=== PATIENT | male | born 2000 | race Caucasian/White ===

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

== ENCOUNTER 2023-04-18 11:08 | Emergency (ER) | payer MEDICAID ==
[~2023-04-18] VITALS: Ht 177.8 cm; Wt 86.3 kg
[~2023-04-18 11:08] MED LIST changes: +CLON0.5T3 PO; +TRAZ-227 PO
[2023-04-18] MEDS ORDERED: LORazepam 2MG/ML-1ML VIAL ONE (11:16)
[2023-04-18] MEDS ORDERED: LORazepam 2MG/ML-1ML VIAL IV ONE (11:30)
[2023-04-18 12:07] LABS: Albumin 4.1 g/dL (3.4-5.0); Calcium 8.9 mg/dL (8.5-10.1); Potassium 4.7 mmol/L (3.5-5.1)
[2023-04-18 12:11] LABS: Bilirubin, Total 0.2 mg/dL (0.2-1.0); Total Protein 8.1 g/dL (6.4-8.2)
[2023-04-18 12:17] LABS: Basophils # (auto) 0 10 ^3/uL (0-0.2); Basophils % (auto) 0.6 % (0.0-2.0); Eosinophils # (auto) 0.1 10 ^3/uL (0-0.8); Eosinophils % (auto) 1.5 % (0.0-7.0); Hemoglobin 16.1 g/dL (13.5-17.5); Lymphocytes # (auto) 1.1 10 ^3/uL (0.4-5.4); Lymphocytes % (auto) 15.3 % (10.0-50.0); Mean Corpuscular Hgb Conc. 33.5 g/dL (32.0-36.0); Mean Corpuscular Volume 89.6 fL (80.0-100.0); Monocytes # (auto) 0.6 10 ^3/uL (0-1.3); Monocytes % (auto) 8.4 % (0.0-12.0); Neutrophils # (auto) 5.2 10 ^3/uL (1.6-8.6); Neutrophils % (auto) 74.2 % (37.0-80.0); Nucleated Red Blood Cells % 0.1 %; Red Blood Cells 5.36 10^6/uL (4.5-5.90); Red Cell Distribution Width 14.7 % (11.8-14.3)
[2023-04-18] MEDS ORDERED: LORazepam 2MG/ML-1ML VIAL IM ONE (13:00)
[2023-04-18] MEDS ORDERED: LEVE500T40 PO (13:49)
[2023-04-18 14:44] VITALS: BP 140/80
== END 2023-04-18 15:35 | disposition home or self-care (01) ==
LOC: EDBD 11:08 → ER 11:08
DX: G40.909 Epilepsy, unspecified, not intractable, without status epilepticus (principal); R51.9 Headache, unspecified; M25.512 Pain in left shoulder
CPT/HCPCS: 36415; 70450; 72125; 73030; 80053; 85025; 96365; 96372; 96375; 99285; J1953; J2060; J7060

== ENCOUNTER 2023-07-14 22:18 | Emergency (ER) | payer MEDICAID ==
[~2023-07-14] VITALS: Ht 177.8 cm; Wt 82.5 kg
[~2023-07-14 22:18] MED LIST changes: +LEVE500T40 PO
[2023-07-14 23:00] VITALS: PULSE 80; RESP 20; O2SAT 96
[2023-07-15 00:11] LABS: Basophils # (auto) 0.1 10 ^3/uL (0-0.2); Basophils % (auto) 0.9 % (0.0-2.0); Eosinophils # (auto) 0.2 10 ^3/uL (0-0.8); Eosinophils % (auto) 2.7 % (0.0-7.0); Hematocrit 40.3 % (41.0-53.0); Hemoglobin 13.6 g/dL (13.5-17.5); Lymphocytes # (auto) 1.7 10 ^3/uL (0.4-5.4); Lymphocytes % (auto) 21.9 % (10.0-50.0); Mean Corpuscular Hemoglobin 30.3 pg (28.0-32.0); Mean Corpuscular Hgb Conc. 33.7 g/dL (32.0-36.0); Mean Corpuscular Volume 90.2 fL (80.0-100.0); Monocytes # (auto) 0.8 10 ^3/uL (0-1.3); Monocytes % (auto) 10.4 % (0.0-12.0); Neutrophils # (auto) 4.8 10 ^3/uL (1.6-8.6); Neutrophils % (auto) 64.1 % (37.0-80.0); Nucleated Red Blood Cells % 0.1 %; Red Blood Cells 4.47 10^6/uL (4.5-5.90); White Blood Cell 7.6 10^3/uL (4.4-10.8)
[2023-07-15 00:26] LABS: Alanine Aminotransferase 52 U/L (7-40); Albumin 3.9 g/dL (3.2-4.8); Alkaline Phosphatase 89 U/L (46-116); Anion Gap 5 (5-15); Aspartate Aminotransferase 26 U/L (13-40); BUN/Creatinine Ratio 8.3 (10.0-20.0); Bilirubin, Total 1.1 mg/dL (0.2-1.0); Blood Urea Nitrogen 7 mg/dL (9-23); Calcium 8.5 mg/dL (8.7-10.4); Carbon Dioxide 24 mmol/L (20-30); Chloride 108 mmol/L (98-107); Glucose 97 mg/dL (74-106); Magnesium 2.2 mg/dL (1.6-2.6); Sodium 137 mmol/L (136-145); Total Protein 6.2 g/dL (5.7-8.2)
[2023-07-15 04:00] VITALS: BP 119/59; PULSE 79; RESP 13; O2SAT 95
[2023-07-15] MEDS ORDERED: levETIRAcetam 500 MG/5ML INJ IV ONE (04:53)
== END 2023-07-15 06:00 | disposition home or self-care (01) ==
LOC: EDBD 22:18 → ER 22:18
DX: G40.909 Epilepsy, unspecified, not intractable, without status epilepticus (principal); F15.90 Other stimulant use, unspecified, uncomplicated; Z98.890 Other specified postprocedural states; Z79.899 Other long term (current) drug therapy
CPT/HCPCS: 36415; 70450; 71045; 80053; 83735; 84443; 84484; 85025; 93005; 96374; 99285; J1953; J7060

== ENCOUNTER 2023-07-20 08:01 | Emergency (ER) | payer MEDICAID ==
[~2023-07-20] VITALS: Ht 177.8 cm; Wt 79.5 kg
[2023-07-20 08:32] LABS: Basophils # (auto) 0.1 10 ^3/uL (0-0.2); Basophils % (auto) 0.7 % (0.0-2.0); Eosinophils # (auto) 0 10 ^3/uL (0-0.8); Eosinophils % (auto) 0.4 % (0.0-7.0); Hematocrit 41.1 % (41.0-53.0); Hemoglobin 14.2 g/dL (13.5-17.5); Lymphocytes # (auto) 1.1 10 ^3/uL (0.4-5.4); Lymphocytes % (auto) 11.4 % (10.0-50.0); Monocytes # (auto) 0.8 10 ^3/uL (0-1.3); Monocytes % (auto) 8.3 % (0.0-12.0); Neutrophils # (auto) 7.9 10 ^3/uL (1.6-8.6); Neutrophils % (auto) 79.2 % (37.0-80.0); Red Blood Cells 4.59 10^6/uL (4.5-5.90)
[2023-07-20 08:33] LABS: Mean Corpuscular Hgb Conc. 34.5 g/dL (32.0-36.0); Mean Corpuscular Volume 89.7 fL (80.0-100.0); Red Cell Distribution Width 14.3 % (11.8-14.3)
[2023-07-20 08:47] VITALS: TEMP 98.4
[2023-07-20 08:49] VITALS: PULSE 89; RESP 16; O2SAT 94
[2023-07-20 09:04] LABS: Alanine Aminotransferase 76 U/L (7-40); Albumin 4.6 g/dL (3.2-4.8); Alkaline Phosphatase 93 U/L (46-116); Anion Gap 10 (5-15); Aspartate Aminotransferase 28 U/L (13-40); BUN/Creatinine Ratio 9.9 (10.0-20.0); Bilirubin, Total 0.3 mg/dL (0.2-1.0); Blood Urea Nitrogen 10 mg/dL (9-23); Calcium 9.7 mg/dL (8.7-10.4); Carbon Dioxide 22 mmol/L (20-30); Chloride 107 mmol/L (98-107); Glucose 119 mg/dL (74-106); Sodium 139 mmol/L (136-145); Total Protein 7.4 g/dL (5.7-8.2)
[2023-07-20] MEDS ORDERED: levETIRAcetam 500 MG TAB PO ONE (10:00)
[2023-07-20 11:00] VITALS: BP 100/64; PULSE 77; RESP 16; O2SAT 94
== END 2023-07-20 11:47 | disposition home or self-care (01) ==
LOC: ER 08:01 → EDBD 08:01 → ER 11:47
DX: G40.909 Epilepsy, unspecified, not intractable, without status epilepticus (principal); M25.512 Pain in left shoulder; F17.210 Nicotine dependence, cigarettes, uncomplicated; F15.90 Other stimulant use, unspecified, uncomplicated
CPT/HCPCS: 36415; 70450; 73030; 80053; 85025

== ENCOUNTER 2024-07-05 01:27 | Inpatient (IN) | payer MEDICAID ==
[~2024-07-05] VITALS: Ht 177.8 cm; Wt 77.5 kg
[2024-07-05 03:00] LABS: Basophils # (auto) 0 10 ^3/uL (0-0.2); Basophils % (auto) 0.7 % (0.0-2.0); Chloride 109 mmol/L (98-107); Eosinophils # (auto) 0.1 10 ^3/uL (0-0.8); Eosinophils % (auto) 2.2 % (0.0-7.0); Hematocrit 42.2 % (41.0-53.0); Hemoglobin 14.6 g/dL (13.5-17.5); Lymphocytes # (auto) 2.2 10 ^3/uL (0.4-5.4); Mean Corpuscular Hemoglobin 31.3 pg (28.0-32.0); Mean Corpuscular Hgb Conc. 34.7 g/dL (32.0-36.0); Mean Corpuscular Volume 90.2 fL (80.0-100.0); Monocytes # (auto) 0.6 10 ^3/uL (0-1.3); Monocytes % (auto) 8.4 % (0.0-12.0); Neutrophils # (auto) 3.9 10 ^3/uL (1.6-8.6); Neutrophils % (auto) 56.7 % (37.0-80.0); Nucleated Red Blood Cells % 0.1 %; Platelet Count (auto) 244 10^3/uL (140-450); Potassium 3.9 mmol/L (3.5-5.1); Red Blood Cells 4.68 10^6/uL (4.5-5.90); Red Cell Distribution Width 15.3 % (11.8-14.3); Sodium 138 mmol/L (136-145); White Blood Cell 6.8 10^3/uL (4.4-10.8)
[2024-07-05 03:01] LABS: Anion Gap 8 (5-15); Calcium 9.3 mg/dL (8.7-10.4); Carbon Dioxide 21 mmol/L (20-30)
[2024-07-05 03:06] LABS: BUN/Creatinine Ratio 15.7 (10.0-20.0); Blood Urea Nitrogen 13 mg/dL (9-23); Glucose 93 mg/dL (74-106)
[2024-07-05] MEDS: SODIUM CHLORIDE 0.9% 1,000 ML IV ONE (03:27)
[2024-07-05] MEDS: PROPOFOL 10 MG/ML 20 ML IV ONE (03:30)
[2024-07-05] MEDS: IBUPROFEN 800 MG TAB PO ONE (04:30)
[2024-07-05] MEDS: cefTRIAXone 1GM/50ML D5W 50 ML IV ONE (06:15)
[2024-07-05] MEDS: HYDROmorphone HCL 2 MG/ML VL/or syr IV ONE (06:25)
[2024-07-05 06:56] LABS: Basophils # (auto) 0.1 10 ^3/uL (0-0.2); Basophils % (auto) 0.9 % (0.0-2.0); Eosinophils # (auto) 0.2 10 ^3/uL (0-0.8); Eosinophils % (auto) 2.3 % (0.0-7.0); Hematocrit 38.4 % (41.0-53.0); Hemoglobin 13.6 g/dL (13.5-17.5); Lymphocytes # (auto) 2.3 10 ^3/uL (0.4-5.4); Lymphocytes % (auto) 31.1 % (10.0-50.0); Mean Corpuscular Hemoglobin 31.5 pg (28.0-32.0); Mean Corpuscular Hgb Conc. 35.3 g/dL (32.0-36.0); Mean Corpuscular Volume 89.3 fL (80.0-100.0); Monocytes # (auto) 0.5 10 ^3/uL (0-1.3); Monocytes % (auto) 7.1 % (0.0-12.0); Neutrophils # (auto) 4.2 10 ^3/uL (1.6-8.6); Neutrophils % (auto) 58.6 % (37.0-80.0); Nucleated Red Blood Cells % 0.2 %; Platelet Count (auto) 213 10^3/uL (140-450); Red Cell Distribution Width 14.6 % (11.8-14.3); White Blood Cell 7.2 10^3/uL (4.4-10.8)
[2024-07-05 07:05] LABS: Alanine Aminotransferase 46 U/L (7-40); Alkaline Phosphatase 64 U/L (46-116); Anion Gap 8 (5-15); Aspartate Aminotransferase 18 U/L (13-40); Blood Urea Nitrogen 13 mg/dL (9-23); Calcium 8.8 mg/dL (8.7-10.4); Carbon Dioxide 22 mmol/L (20-30); Chloride 109 mmol/L (98-107); Glucose 91 mg/dL (74-106); Potassium 4.2 mmol/L (3.5-5.1); Sodium 139 mmol/L (136-145)
[2024-07-05 07:06] LABS: Bilirubin, Total 0.2 mg/dL (0.2-1.0); Total Protein 6.1 g/dL (5.7-8.2)
[2024-07-05] MEDS ORDERED: ONDANSETRON HCL 4 MG/2 ML VIAL IV PRN (07:15)
[2024-07-05] MEDS ORDERED: ACETAMINOPHEN 325 MG TAB PO PRN (07:15)
[2024-07-05] MEDS: MORPHINE SULFATE INJ 2 MG/ml SYRG IV PRN (08:03)
[2024-07-05] MEDS: levETIRAcetam 500 MG TAB PO SCH (09:46)
[2024-07-05] MEDS: HYDROcodone-ACET 5/325MG TAB PO PRN (09:46)
[2024-07-05 11:45] LABS: Urine Bacteria None Seen /hpf (None Seen)
[2024-07-05 12:15] LABS: Urine Blood Negative /uL (Negative); Urine Clarity Clear (Clear); Urine Color Light-Yellow (Yellow); Urine Protein, UAD Negative (Negative); Urine Specific Gravity 1.022 (1.001-1.035); Urine Urobilinogen Normal (Negative); Urine WBC <1 /hpf (0 - 3)
[2024-07-05 12:24] LABS: INR 1.03 (0.9-1.15); Partial Thromboplastin Time 25.9 SEC (24.5-34.5); Prothrombin Time 10.9 sec (9.3-11.8)
[2024-07-05 12:28] LABS: Amphetamine Screen, Urine Neg (NEGATIVE); Barbiturate Scree,Urine Neg (NEGATIVE); Benzodiazephine Screen, Urine Neg (NEGATIVE); Cannabinoid Screen, Urine Neg (NEGATIVE); Cocaine Screen, Urine Pos (NEGATIVE); Opiate Scree,Urine Neg (NEGATIVE); Phencyclidine Screen, Urine Neg (NEGATIVE)
[2024-07-05 16:10] VITALS: BP 108/88; PULSE 71; RESP 71; TEMP 98.1; O2SAT 99
[2024-07-05] MEDS ORDERED: LEVE100020 PO (16:42)
[2024-07-05] MEDS ORDERED: DIVA1TAB59 PO (16:42)
[2024-07-05 20:00] VITALS: RESP 16
[2024-07-05 21:00] VITALS: BP 127/75; PULSE 72; RESP 22; TEMP 97.9; O2SAT 98
[2024-07-05] MEDS: diphenhdrAMINE HCL 50 MG/1 ML VL IV ONE (22:48)
[2024-07-06] VITALS (8 sets, daily range): BP systolic 103–125; BP diastolic 63–87; PULSE 54–113; RESP 16–22; TEMP 97.4–98.5; O2SAT 90–100
[2024-07-06] MEDS ORDERED: ROPIVACAINE 0.5% (5MG/ML) 20ML AMPULE IJ ONE ×2 (12:59→18:30)
[2024-07-06] MEDS ORDERED: PROPOFOL 10 MG/ML 20 ML IV ONE (13:00)
[2024-07-06] MEDS ORDERED: ROCURONIUM 10MG/ML 10ML VIAL IV ONE (13:00)
[2024-07-06] MEDS ORDERED: HYDROmorphone HCL 2 MG/ML VL/or syr ONE ×2 (13:00→18:19)
[2024-07-06] MEDS ORDERED: MIDAZOLAM HCL 2MG/2ML 2ml VIAL (1mg/ml) ONE (13:01)
[2024-07-06] MEDS ORDERED: LIDOCAINE HCL 100 MG/5ML (2%) SYRG INJ IV ONE (13:02)
[2024-07-06] MEDS ORDERED: ceFAZolin 1GM VL ONE (13:44)
[2024-07-06] MEDS ORDERED: TRANEXAMIC ACID 20 ML ONE (14:06)
[2024-07-06] MEDS ORDERED: ePHEDrine SULFATE 50 MG/ML AMP ONE (15:42)
[2024-07-06] MEDS ORDERED: DexAMETHasone SOD PHOS 10MG/1ML VIAL INJ ONE (17:00)
[2024-07-06] MEDS ORDERED: diphenhdrAMINE HCL 50 MG/1 ML VL ONE (17:01)
[2024-07-06] MEDS ORDERED: ONDANSETRON HCL 4 MG/2 ML VIAL ONE (17:02)
[2024-07-06] MEDS ORDERED: SUGAMMADEX 200mg/2ml Vial (100MG/ML) IV ONE ×2 (17:23→17:56)
[2024-07-06] MEDS ORDERED: ePHEDrine SULFATE 50 MG/ML AMP IV PRN (18:15)
[2024-07-06] MEDS ORDERED: MIDAZOLAM HCL 2MG/2ML 2ml VIAL (1mg/ml) IV PRN (18:15)
[2024-07-06] MEDS ORDERED: KETOROLAC TROMETH 30 MG/ML 1ML VIAL IV ONE (18:15)
[2024-07-06] MEDS: MEPERIDINE HCL (25 MG/ML) 1ML VIAL ONE (18:15)
[2024-07-06] MEDS ORDERED: MORPHINE SULFATE 4 MG/ML SYR/VIAL IV PRN (18:15)
[2024-07-06] MEDS ORDERED: MEPERIDINE HCL (25 MG/ML) 1ML VIAL IM ONE (20:15)
[2024-07-06] MEDS: HYDROcodone-ACET 10/325MG TAB PO PRN (21:16)
[2024-07-07 01:00] VITALS: BP 139/80; PULSE 100; RESP 18; TEMP 98.2; O2SAT 90
[2024-07-07] MEDS: diphenhdrAMINE HCL 50 MG/1 ML VL IV PRN (03:19)
[2024-07-07 05:00] VITALS: BP 117/79; PULSE 98; RESP 19; TEMP 98; O2SAT 95
[2024-07-07] MEDS: HYDROcodone-ACET 5/325MG TAB PO PRN (08:17)
[2024-07-07 08:28] LABS: Basophils # (auto) 0 10 ^3/uL (0-0.2); Basophils % (auto) 0.3 % (0.0-2.0); Eosinophils # (auto) 0 10 ^3/uL (0-0.8); Eosinophils % (auto) 0.5 % (0.0-7.0); Hematocrit 39.8 % (41.0-53.0); Hemoglobin 13.8 g/dL (13.5-17.5); Lymphocytes % (auto) 12.9 % (10.0-50.0); Mean Corpuscular Hgb Conc. 34.7 g/dL (32.0-36.0); Mean Corpuscular Volume 89.4 fL (80.0-100.0); Monocytes # (auto) 0.9 10 ^3/uL (0-1.3); Monocytes % (auto) 11.5 % (0.0-12.0); Neutrophils # (auto) 5.6 10 ^3/uL (1.6-8.6); Neutrophils % (auto) 74.8 % (37.0-80.0); Nucleated Red Blood Cells % 0.1 %; Platelet Count (auto) 227 10^3/uL (140-450); Red Blood Cells 4.45 10^6/uL (4.5-5.90); Red Cell Distribution Width 15.2 % (11.8-14.3); White Blood Cell 7.5 10^3/uL (4.4-10.8)
[2024-07-07 08:29] LABS: Chloride 102 mmol/L (98-107); Sodium 136 mmol/L (136-145)
[2024-07-07 08:30] LABS: Anion Gap 7 (5-15); Calcium 9.3 mg/dL (8.7-10.4); Carbon Dioxide 27 mmol/L (20-30)
[2024-07-07 08:35] LABS: BUN/Creatinine Ratio 13.7 (10.0-20.0); Blood Urea Nitrogen 13 mg/dL (9-23); Glucose 114 mg/dL (74-106)
[2024-07-07 09:00] VITALS: BP 127/74; PULSE 80; RESP 18; TEMP 98.4; O2SAT 95
[2024-07-07] MEDS: MORPHINE SULFATE INJ 2 MG/ml SYRG IV PRN (09:20)
[2024-07-07] MEDS: MORPHINE SULFATE INJ 2 MG/ml SYRG IV ONE (10:42)
[2024-07-07 13:00] VITALS: BP 127/74; PULSE 80; RESP 18; TEMP 98.4; O2SAT 95
[2024-07-07] MEDS: OXYCODONE W/ ACETAMINOPHEN 5/325MG TABLET PO PRN (13:00)
[2024-07-07 17:00] VITALS: BP 122/80; PULSE 95; RESP 16; TEMP 97.5; O2SAT 96
[2024-07-07 21:00] VITALS: BP 138/88; PULSE 104; RESP 18; TEMP 98.1; O2SAT 91
[2024-07-07] MEDS ORDERED: LORazepam 2MG/ML-1ML VIAL IV PRN (21:15)
[2024-07-07] MEDS: KETOROLAC TROMETH 30 MG/ML 1ML VIAL IV ONE (21:48)
[2024-07-07] MEDS: MELATONIN 5 MG TAB PO ONE (21:58)
[2024-07-07] MEDS: levETIRAcetam 500 MG TAB PO SCH (22:30)
[2024-07-08] MEDS: levETIRAcetam 500 MG TAB PO ONE (00:10)
[2024-07-08 01:00] VITALS: BP 112/67; PULSE 86; RESP 17; TEMP 98.1; O2SAT 97
[2024-07-08 05:00] VITALS: BP 130/79; PULSE 95; RESP 18; TEMP 98.7; O2SAT 92
[2024-07-08 08:00] VITALS: PULSE 104; RESP 16; O2SAT 98
[2024-07-08 10:12] VITALS: BP 132/84; PULSE 104; RESP 16; TEMP 98.5; O2SAT 98
[2024-07-08] MEDS ORDERED: PERCOT PO (13:04)
[2024-07-08 13:33] VITALS: BP 136/77; PULSE 104; RESP 16; TEMP 98.4; O2SAT 93
[2024-07-08 14:10] VITALS: BP 136/77; PULSE 104; RESP 16; TEMP 98.4; O2SAT 93
== END 2024-07-08 14:41 | disposition home or self-care (01) | DRG 315 ==
LOC: ER 01:27 → OVERFLOW 07:06 → CENTRAL 16:19
PROVIDERS: ADMIT Nurse Practitioner; ATTEND Nurse Practitioner Acute Care
PROC: 0PB60ZZ Excision of Left Scapula, Open Approach (ICD-10-PCS; 2024-07-06)
PROC: 0PSD04Z Reposition Left Humeral Head with Internal Fixation Device, Open Approach (ICD-10-PCS; principal; 2024-07-06 13:12)
DX: S42.295A Other nondisplaced fracture of upper end of left humerus, initial encounter for closed fracture (principal); G40.401 Other generalized epilepsy and epileptic syndromes, not intractable, with status epilepticus; F14.10 Cocaine abuse, uncomplicated; Z79.899 Other long term (current) drug therapy; F17.210 Nicotine dependence, cigarettes, uncomplicated; W18.39XA Other fall on same level, initial encounter; Y93.89 Activity, other specified; Y92.89 Other specified places as the place of occurrence of the external cause; Y99.8 Other external cause status
CPT/HCPCS: 36415; 70450; 71045; 73030; 73200; 76000; 80048; 80053; 80307; 81001; 85025; 85610; 85730; 87081; G0378; J0690; J1100; J1885; J2250; J2405; J2704

== ENCOUNTER 2024-07-11 20:59 | Inpatient (IN) | payer MEDICAID ==
[~2024-07-11] VITALS: Ht 177.8 cm; Wt 75.8 kg
[~2024-07-11 20:59] MED LIST changes: +DIVA1TAB59 PO; +LEVE100020 PO; +PERCOT PO
[2024-07-11] MEDS ORDERED: HYDR-4902 PO (22:22)
[2024-07-11] MEDS ORDERED: IBUP-1455 PO (22:22)
[2024-07-11] MEDS: KETOROLAC TROMETH 60MG/2ML VIAL IM ONE (22:27)
[2024-07-11] MEDS: MORPHINE SULFATE 4 MG/ML SYR/VIAL IM ONE (23:50)
[2024-07-11] MEDS: ONDANSETRON HCL 4 MG/2 ML VIAL IM ONE (23:50)
[2024-07-12] VITALS (7 sets, daily range): BP systolic 115–123; BP diastolic 62–79; PULSE 64–105; RESP 16–20; TEMP 97.9–98.6; O2SAT 96–100
[2024-07-12] MEDS: LORazepam 2MG/ML-1ML VIAL ONE ×2 (00:17→00:25)
[2024-07-12] MEDS: MIDAZOLAM HCL 5 MG/ML-1ML VIAL IV ONE (00:39)
[2024-07-12] MEDS: MIDAZOLAM HCL 5 MG/ML-1ML VIAL ONE (00:57)
[2024-07-12] MEDS: LORazepam 2MG/ML-1ML VIAL IV ONE ×2 (00:57→02:30)
[2024-07-12] MEDS: LORazepam 2MG/ML-1ML VIAL IM ONE ×2 (00:57→02:36)
[2024-07-12 01:24] LABS: Basophils # (auto) 0.1 10 ^3/uL (0-0.2); Eosinophils # (auto) 0.1 10 ^3/uL (0-0.8); Eosinophils % (auto) 2.2 % (0.0-7.0); Hematocrit 38.8 % (41.0-53.0); Hemoglobin 12.9 g/dL (13.5-17.5); Lymphocytes # (auto) 1.5 10 ^3/uL (0.4-5.4); Lymphocytes % (auto) 21.2 % (10.0-50.0); Mean Corpuscular Hemoglobin 30.6 pg (28.0-32.0); Mean Corpuscular Hgb Conc. 33.3 g/dL (32.0-36.0); Mean Corpuscular Volume 91.8 fL (80.0-100.0); Monocytes # (auto) 0.7 10 ^3/uL (0-1.3); Monocytes % (auto) 9.7 % (0.0-12.0); Neutrophils # (auto) 4.5 10 ^3/uL (1.6-8.6); Neutrophils % (auto) 65.9 % (37.0-80.0); Nucleated Red Blood Cells % 0.2 %; Platelet Count (auto) 304 10^3/uL (140-450); Red Blood Cells 4.23 10^6/uL (4.5-5.90); White Blood Cell 6.9 10^3/uL (4.4-10.8)
[2024-07-12 01:42] LABS: Alanine Aminotransferase 29 U/L (7-40); Albumin 4.4 g/dL (3.2-4.8); Alkaline Phosphatase 60 U/L (46-116); Anion Gap 14 (5-15); Aspartate Aminotransferase 20 U/L (13-40); BUN/Creatinine Ratio 16.2 (10.0-20.0); Bilirubin, Total 0.3 mg/dL (0.2-1.0); Blood Urea Nitrogen 16 mg/dL (9-23); Calcium 9.8 mg/dL (8.7-10.4); Carbon Dioxide 17 mmol/L (20-30); Chloride 108 mmol/L (98-107); Glucose 101 mg/dL (74-106); Potassium 4.1 mmol/L (3.5-5.1); Sodium 139 mmol/L (136-145); Total Protein 7.1 g/dL (5.7-8.2)
[2024-07-12 01:43] LABS: Lactic Acid w/Reflex 2.5 mmol/L (0.4-2.0)
[2024-07-12] MEDS: levETIRAcetam 1000 mg/100ml 100 ML IV ONE (02:34)
[2024-07-12] MEDS ORDERED: HYDROcodone-ACET 10/325MG TAB PO PRN (05:15)
[2024-07-12] MEDS ORDERED: ONDANSETRON HCL 4 MG/2 ML VIAL IV PRN (05:15)
[2024-07-12] MEDS ORDERED: HYDROcodone-ACET 5/325MG TAB PO PRN (05:15)
[2024-07-12] MEDS ORDERED: ACETAMINOPHEN 325 MG TAB PO PRN (05:15)
[2024-07-12] MEDS: LORazepam 2MG/ML-1ML VIAL IV PRN (10:17)
[2024-07-12] MEDS: levETIRAcetam 500 MG TAB PO SCH (13:53)
[2024-07-12 22:39] LABS: Amphetamine Screen, Urine Neg (NEGATIVE); Barbiturate Scree,Urine Neg (NEGATIVE); Benzodiazephine Screen, Urine Pos (NEGATIVE); Cannabinoid Screen, Urine Neg (NEGATIVE); Cocaine Screen, Urine Neg (NEGATIVE); Opiate Scree,Urine Neg (NEGATIVE); Phencyclidine Screen, Urine Neg (NEGATIVE)
[2024-07-13] VITALS (7 sets, daily range): BP systolic 103–126; BP diastolic 56–74; PULSE 63–100; RESP 18; TEMP 36.9; O2SAT 96–100
[2024-07-13] MEDS: KETOROLAC TROMETH 30 MG/ML 1ML VIAL IV ONE (01:08)
[2024-07-13] MEDS: TEMAZEPAM 15 MG CAP PO PRN (01:35)
[2024-07-13 07:44] LABS: Chloride 109 mmol/L (98-107); Potassium 3.9 mmol/L (3.5-5.1); Sodium 138 mmol/L (136-145)
[2024-07-13 07:45] LABS: Anion Gap 7 (5-15); Calcium 9.6 mg/dL (8.7-10.4); Carbon Dioxide 22 mmol/L (20-30)
[2024-07-13 07:50] LABS: Blood Urea Nitrogen 15 mg/dL (9-23); Glucose 92 mg/dL (74-106)
[2024-07-13] MEDS ORDERED: LEVE100012 PO (12:15)
[2024-07-13] MEDS ORDERED: DIVA-93 PO (12:15)
== END 2024-07-13 12:58 | disposition home or self-care (01) | DRG 53 ==
LOC: ER 20:59 → TELE 07-12 05:09 → TELE-WESTW 07-12 17:30
PROVIDERS: ADMIT Nurse Practitioner; ATTEND Internal Medicine Geriatric Medicine
DX: G40.901 Epilepsy, unspecified, not intractable, with status epilepticus (principal); E87.20 Acidosis, unspecified; F17.210 Nicotine dependence, cigarettes, uncomplicated; M25.512 Pain in left shoulder; G89.18 Other acute postprocedural pain
CPT/HCPCS: 36415; 70450; 70486; 73030; 73200; 80048; 80053; 80307; 82542; 83605; 85025; 87081; 96372; G0378; J1885; J2250; J2405

== ENCOUNTER 2024-08-26 01:13 | Inpatient (IN) | payer MEDICAID ==
[~2024-08-26] VITALS: Ht 177.8 cm; Wt 81.2 kg
[~2024-08-26 01:13] MED LIST changes: +DIVA-93 PO; +HYDR-4902 PO; +IBUP-1455 PO; +LEVE100012 PO
--- NOTE | 2024-08-26 03:10 | ED.PDOC ---
History of Present Illness HPI Comments 24 y/o M, with a Hx of seizures, chronic left shoulder dislocations w/surgical intervention, and polysubstance use, presents with c/o left-shoulder numbness and trauma bite wound to tongue s/p seizure and fall injury, today. Patient endorses on having an unprovoked and sudden seizure episode onset w/o aura that was witnessed by his aunt at home, this morning. Patient states on waking up on the tiled floor w/numbness to his left shoulder and being informed by his aunt on her failed attempt to catch him mid-fall by his left arm prior to hitting the ground w/head injury and going "in-and-out" of a seizure for "25x minutes." Patient comments on bite wound being located to the back of his tongue. Patient admits to seizure medications compliancy. Patient endorses on no further relevant or pertinent past medical, surgical, or family Hx in addition to recent stress, sick contact, travel, or substance use/exposure. Patient denies having any additional injuries, headache, dizziness, lightheadedness, weakness, pain, speech or vision changes, fever, chills, or other associated symptoms or modifiers at this time. Chief Complaint: Seizure Time Seen by MD: 02:25 Primary Care Provider: IE[facility] Reviewed Notes: Nurses Notes, Medications, Allergies Allergies: Coded Allergies: NO KNOWN ALLERGIES (Unverified , 04/04/10) Home Meds Active Scripts Divalproex Sodium (Depakote Er) 500 Mg Tab, 1 TAB PO BID, #60 TAB 2 Refills Prov:JACKELYN SANCHEZ MD 07/13/24 Levetiracetam (Keppra) 1,000 Mg Tab, 1 TAB PO BID, #60 TAB 5 Refills Prov:JACKELYN SANCHEZ MD 07/13/24 Hydrocodone-Acetaminophen (Hydrocodone Bitartrate/AC 5-325 mg) 1 Tab Tab, 1 TAB PO Q6HPRN PRN, #20 TAB Prov:GATITO VENTURA 07/11/24 Ibuprofen Micronized (Ibuprofen) 800 Mg Tab, 800 MG PO Q8HPRN PRN, #20 TAB Prov:GATITO VENTURA 07/11/24 Oxycodone W/ Acetaminophen (Percocet 5/325MG) 1 Tab Tb, 2 TAB PO QID for 5 Days, #40 TAB Prov:JEANNIE MERCHANT NP 07/08/24 Levetiracetam (Keppra) 500 Mg Tab, 500 MG PO BID, #30 MG Prov:CHARISSE HILLS MD 04/18/23 Reported Medications Levetiracetam (Levetiracetam) 1,000 Mg Tab, 1.5 TAB PO BID 07/05/24 Divalproex Sodium (Divalproex Sodium Dr) 500 Mg Tab, 1 TAB PO BID 07/05/24 Trazodone Hcl (Trazodone Hcl) 50 Mg Tab, 50 MG PO HS, TAB 11/10/17 Clonazepam (KlonoPIN TABLET) 0.5 Mg Tb, 1 MG PO HS 11/10/17 Zonisamide (Zonisamide) 100 Mg Cap, 300 MG PO HS 10/01/17 Information Source: Patient Mode of Arrival: Ambulatory Severity: Moderate Timing: Hours Duration: Since onset Prehospital treatment: None Past Medical History PAST MEDICAL HISTORY: Seizures Past Medical History (Other): chronic left shoulder dislocations w/surgical intervention Surgical History (Other): left shoulder Sx for chronic dislocation Family History Family History: Unknown Social History Smoker: Cigarettes Alcohol: Occasionally Drugs: Marijuana Lives In: Home Constitutional: denies: chills, diaphoresis, fatigue, fever, malaise, sweats, weakness, others EENTM: denies: blurred vision, double vision, ear bleeding, ear discharge, ear drainage, ear pain, ear ringing, eye pain, eye redness, hearing loss, mouth pain, mouth swelling, nasal discharge, nose bleeding, nose congestion, nose pain, photophobia, tearing, throat pain, throat swelling, voice changes, others Respiratory: denies: cough, hemoptysis, orthopnea, SOB at rest, shortness of breath, SOB with excertion, stridor, wheezing, others Cardiovascular: denies: chest pain, dizzy spells, diaphoresis, Dyspnea on exertion, edema, irregular heart beat, left arm pain, lightheadedness, palpitations, PND, syncope, others Gastrointestinal: denies: abdomen distended, abdominal pain, blood streaked bowels, constipated, diarrhea, dysphagia, difficulty swallowing, hematemesis, melena, nausea, poor appetite, poor fluid intake, rectal bleeding, rectal pain, vomiting, others Genitourinary: denies: burning, dysuria, flank pain, frequency, hematuria, incontinence, penile discharge, penile sore, pain, testicle pain, testicle swelling, urgency, others Neurological: reports: numbness (left shoulder), seizure; denies: dizziness, fainting, headache, left sided numbness, left sided weakness, paresthesia, pre- existing deficit, right sided numbness, right sided weakness, speech problems, tingling, tremors, weakness, others Musculoskeletal: denies: back pain, gout, joint pain, joint swelling, muscle pain, muscle stiffness, neck pain, others Integumetry: reports: wounds (bite trauma wound to tongue); denies: bruises, change in color, change in hair/nails, dryness, laceration, lesions, lumps, rash, others Allergic/Immunocompromised: denies: Difficulty Healing, Frequent Infections, Hives, Itching, others Hematologic/Lymphatic: denies: anemia, blood clots, easy bleeding, easy bruising, swollen glands, others Endocrine: denies: excessive hunger, excessive sweating, excessive thirst, excessive urination, flushing, intolerance to cold, intolerance to heat, unexplained weight gain, unexplained weight loss, others Psychiatric: denies: anxiety, bipolar disorder, depression, hopeless, panic disorder, schizophrenia, sleepless, suicidal, others All Other Systems: Reviewed and Negative Physical Exam General Appearance: No Apparent Distress, Normal HEENT: Normal ENT Inspection, Pharynx Normal, TMs Normal Neck: Full Range of Motion, Non-Tender, Normal, Normal Inspection Respiratory: Chest Non-Tender, Lungs Clear, No Accessory Muscle Use, No Respiratory Distress, Normal Breath Sounds Cardiovascular: No Edema, No JVD, No Murmur, No Gallop, Normal Peripheral Pulses, Regular Rate/Rhythm Breast Exam: Deferred Gastrointestinal: No Organomegaly, Non Tender, No Pulsatile Mass, Normal Bowel Sounds, Soft Genitalia: Deferred Pelvic: Deferred Rectal: Deferred Extremities: Decreased range of motion, No calf tenderness, Normal capillary refill, No pedal edema, Tender (slight tenderness to left shoulder ) Musculoskeletal : Apperance: Normal Neurologic: Alert, [employer] 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 Was a procedure done?: No Differential Dx Considerations may include: Infection alcohol substance abuse noncompliance X-Ray, Labs, Meds, VS Vital Signs Date Time Temp Pulse Resp B/P (MAP) Pulse Ox O2 Delivery O2 Flow Rate FiO2 08/26/24 04:28 98.8 80 16 98.8 08/26/24 01:25 98.4 89 18 129/93 (105) 97 [place] [id number] [facility] [address] Ph: [phone] DIAGNOSTIC IMAGING Diagnostic Imaging Report : [id number] Signed PATIENT: NEW OLMSTEAD ACCT: [id number] UNIT: [id number] : 2000 LOC: ER ROOM / BED: / AGE / SEX: 24 / M ADM STATUS: REG ER SERVICE 0236 ORDERING PHYSICIAN: PATRIZIA MARIN MD PROCEDURE(s): LSHCT - CT L SHOULDER WO CONTRAST REASON: fall ORDER NUMBER(s): [id number], ACCESSION NUMBER(s): [id number] Examination: LSHCT CLINICAL INDICATION:fall COMPARISON: None. CONTRAST USED: None. TECHNIQUE: A plain CT study of the left upper extremity is performed. Multiplanar reconstructions were obtained. CT scan WAS done according to ALARA (As Low As Reasonably Achievable). 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 There is flattening of the glenoid fossa and humeral head. A few periarticular osteophytes are seen arising from the glenoid and humeral head. No evidence of erosion/destruction. There is no joint effusion. There is no evidence of subluxation or dislocation. The visualized soft tissues appear unremarkable. No obvious collection is seen. IMPRESSION: 1. 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 2. Flattening of the glenoid fossa and humeral head. 3. A few periarticular osteophytes are seen arising from the glenoid and humeral head, suggestive of degenerative osteoarthritis. Electronically Signed 08/26/2024 04:09 Toñito Doherty ATED BY: NGUYEN RAHMAN MD DICTATED DATE/TIME: 08/26/24408 SIGNED BY: NGUYEN RAHMAN MD SIGNED DATE/TIME: 08/26/24408 CC: [place] [address] Ph: [phone] DIAGNOSTIC IMAGING Diagnostic Imaging Report : [id number] Signed PATIENT: NEW OLMSTEAD ACCT: [id number] UNIT: [id number] : 2000 LOC: ER ROOM / BED: / AGE / SEX: 24 / M ADM STATUS: REG ER SERVICE 5 ORDERING PHYSICIAN: PATRIZIA MARIN MD PROCEDURE(s): HWOCT - HEAD WITHOUT CONTRAST REASON: megan ORDER NUMBER(s): [id number], ACCESSION NUMBER(s): [id number] Examination: HWOCT CLINICAL INDICATION: sz COMPARISON: None. CONTRAST USED: None. TECHNIQUE: The examination was performed obtaining 5 mm slices without contrast. CT scan done according to ALARA (As Low as Reasonably Achievable). Multiplanar reconstructions were obtained. FINDINGS: SUPRATENTORIAL BRAIN: Cerebral Hemispheres: There is no midline shift or mass effect, intra or extra- axial fluid collections or hemorrhage. Periventricular White Matter/Basal Ganglia: No abnormal areas of altered attenuation within the periventricular white matter or basal ganglia. POSTERIOR FOSSA: The brainstem is normal and the visualized cerebellar hemispheres are unremarkable. VENTRICULAR SYSTEM: The ventricular system is normal in size. There is no evidence of hydrocephalus or transependymal flow of cerebrospinal fluid. SKULL BASE AND PARASELLAR REGION: The skull base is normal with no parasellar masses or abnormalities identified. CALVARIUM AND SCALP REGION: No abnormality is seen. PARANASAL SINUSES: Mild S-shaped deviation of the nasal septum. Patchy mucosal thickening in the left maxillary sinus measuring up to 5 mm. No significant inflammatory changes are identified in the paranasal sinuses. IMPRESSION: 1. No evidence of calvarial fracture or extra-axial collection. 2. No acute intracranial abnormality. No evidence of acute infarct or intracranial hemorrhage. 3. Wade-white matter differentiation is well maintained. 4. S-shaped deviation of the nasal septum. Mucosal thickening in the left maxillary sinus, measuring up to 5 mm. Electronically Signed 08/26/2024 03:25 Toñito Doherty ATED BY: NGUYEN RAHMAN MD DICTATED DATE/TIME: 08/26/24324 SIGNED BY: NGUYEN RAHMAN MD SIGNED DATE/TIME: 08/26/24324 CC: Labs are pending. Alcohol and drug screen we will order to rule out as a possible cause of seizures. Also sinusitis could be the cause a seizure and we decided to pace the patient on Rocephin. The patient will be admitted to the hospitalist for further evaluation and care. Time of 1ST Reevaluation: 02:55 Reevaluation 1ST: Unchanged Patient Education/Counseling: Diagnosis, Treatment Family Education/Counseling: No Family Present Departure 1 Departure Time of Disposition: 04:40 Impression: Primary Impression: Seizure disorder Additional Impressions: Shoulder dislocation Qualified Codes: S43.005S - Unspecified dislocation of left shoulder joint, sequela Sinusitis Qualified Codes: J32.1 - Chronic frontal sinusitis Disposition: 01 HOME / SELF CARE / HOMELESS Admit to: Tele Condition: Guarded Critical Care Note Critical Care Time?: No Stability Stability form required: No Heart Score Heart Score: Heart Score Response (Comments) Value History N/A 0 EKG N/A 0 Age N/A 0 Risk Factors N/A 0 Troponin N/A 0 Total 0 I personally scribed for PATRIZIA MARIN MD ([email or web address]) on 08/26/24 at 03:10. Electronically submitted by Jaime Carmichael ([email or web address]). I personally scribed for PATRIZIA MARIN MD ([email or web address]) on 08/26/24 at 03:11. Electronically submitted by Jaime Carmichael ([email or web address]). I personally scribed for PATRIZIA MARIN MD ([email or web address]) on 08/26/24 at 04:28. Electronically submitted by Jaime Carmichael ([email or web address]). PATRIZIA MARIN MD Aug 26, 2024 03:10
--- NOTE | 2024-08-26 03:32 | DVH ---
Examination: HWOCT CLINICAL INDICATION: sz COMPARISON: None. CONTRAST USED: None. TECHNIQUE: The examination was performed obtaining 5 mm slices without contrast. CT scan done accord ing to ALARA (As Low as Reasonably Achievable). Multiplanar reconstructions were obtained. FINDINGS: SUPRATENTORIAL BRAIN: Cerebral Hemispheres: There is no midline shift or mass effect, intra or extra-axial fluid collection s or hemorrhage. Periventricular White Matter/Basal Ganglia: No abnormal areas of altered attenuation within the periv entricular white matter or basal ganglia. POSTERIOR FOSSA: The brainstem is normal and the visualized cerebellar hemispheres are unremarkable. VENTRICULAR SYSTEM: The ventricular system is normal in size. There is no evidence of hydrocephalus o r transependymal flow of cerebrospinal fluid. SKULL BASE AND PARASELLAR REGION: The skull base is normal with no parasellar masses or abnormalities identified. CALVARIUM AND SCALP REGION: No abnormality is seen. PARANASAL SINUSES: Mild S-shaped deviation of the nasal septum. Patchy mucosal thickening in the lef t maxillary sinus measuring up to 5 mm. No significant inflammatory changes are identified in the pa ranasal sinuses. IMPRESSION: 1. No evidence of calvarial fracture or extra-axial collection. 2. No acute intracranial abnormality. No evidence of acute infarct or intracranial hemorrhage. 3. Wade-white matter differentiation is well maintained. 4. S-shaped deviation of the nasal septum. Mucosal thickening in the left maxillary sinus, measuring up to 5 mm. Electronically Signed 08/26/2024 03:25 Toñito Doherty
--- NOTE | 2024-08-26 04:16 | DVH ---
[facility] IND[facility]:fall COMPARISON: None. CONTRAST USED: None. TECHNIQUE: A plain CT study of the left upper extremity is performed. Multiplanar reconstructions w ere obtained. CT scan WAS done according to ALARA (As Low As Reasonably Achievable). 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 There is flattening of the glenoid fossa and humeral head. A few periarticular osteophytes are seen arising from the glenoid and humeral head. No evidence of erosion/destruction. There is no joint effusion. There is no evidence of subluxation or dislocation. The visualized soft tissues appear unremarkable. No obvious collection is seen. IMPRESSION: 1. Chronic fracture is seen along the anteroinferior aspect of the glenoid suggestive of Bankart les ion with postoperative screws seen across it. 2. Flattening of the glenoid fossa and humeral head. 3. A few periarticular osteophytes are seen arising from the glenoid and humeral head, suggestive of degenerative osteoarthritis. Electronically Signed 08/26/2024 04:09 Toñito Doherty
[2024-08-26] MEDS: diphenhdrAMINE HCL 50 MG/1 ML VL IV ONE (04:45)
[2024-08-26 05:23] LABS: Alanine Aminotransferase 73 U/L (7-40); Albumin 4.9 g/dL (3.2-4.8); Alkaline Phosphatase 84 U/L (46-116); Anion Gap 8 (5-15); Aspartate Aminotransferase 26 U/L (13-40); BUN/Creatinine Ratio 24.7 (10.0-20.0); Blood Urea Nitrogen 19 mg/dL (9-23); Calcium 9.6 mg/dL (8.7-10.4); Carbon Dioxide 22 mmol/L (20-31); Chloride 107 mmol/L (98-107); Glucose 93 mg/dL (74-106); Potassium 4.3 mmol/L (3.5-5.1); Sodium 137 mmol/L (136-145)
[2024-08-26 05:24] LABS: Bilirubin, Total 0.4 mg/dL (0.2-1.0); Total Protein 7.4 g/dL (5.7-8.2)
[2024-08-26] MEDS ORDERED: NITROGLYCERIN 0.4 MG SL TAB SL PRN (05:30)
[2024-08-26] MEDS ORDERED: ONDANSETRON HCL 4 MG/2 ML VIAL IV PRN (05:30)
[2024-08-26] MEDS ORDERED: MORPHINE SULFATE INJ 2 MG/ml SYRG IV PRN (05:30)
[2024-08-26] MEDS ORDERED: HYDROcodone-ACET 5/325MG TAB PO PRN (05:30)
[2024-08-26] MEDS ORDERED: ACETAMINOPHEN 325 MG TAB PO PRN (05:30)
[2024-08-26 05:34] LABS: Basophils # (auto) 0 10 ^3/uL (0-0.2); Basophils % (auto) 0.5 % (0.0-2.0); Eosinophils # (auto) 0.1 10 ^3/uL (0-0.8); Eosinophils % (auto) 1.4 % (0.0-7.0); Hematocrit 43.7 % (41.0-53.0); Hemoglobin 14.6 g/dL (13.5-17.5); Lymphocytes # (auto) 1.9 10 ^3/uL (0.4-5.4); Lymphocytes % (auto) 25.4 % (10.0-50.0); Mean Corpuscular Hemoglobin 29.7 pg (28.0-32.0); Mean Corpuscular Hgb Conc. 33.5 g/dL (32.0-36.0); Mean Corpuscular Volume 88.8 fL (80.0-100.0); Monocytes # (auto) 0.7 10 ^3/uL (0-1.3); Monocytes % (auto) 9.1 % (0.0-12.0); Neutrophils # (auto) 4.7 10 ^3/uL (1.6-8.6); Neutrophils % (auto) 63.6 % (37.0-80.0); Nucleated Red Blood Cells % 0.1 %; Platelet Count (auto) 292 10^3/uL (140-450); Red Blood Cells 4.92 10^6/uL (4.5-5.90); Red Cell Distribution Width 14.3 % (11.8-14.3); White Blood Cell 7.4 10^3/uL (4.4-10.8)
[2024-08-26 05:44] LABS: Blood Alcohol < 3.0 mg/dL (<10)
[2024-08-26] MEDS: SODIUM CHLORIDE 0.9% 1,000 ML IV SCH (05:45)
[2024-08-26] MEDS: cefTRIAXone 1GM/50ML D5W 50 ML IV ONE (05:45)
--- NOTE | 2024-08-26 05:49 | DVHHPRES ---
History of Present Illness Resident Creating Document: JO PRASAD RESIDENT History of Present Illness This is a 24-year-old male with a history of epilepsy, chronic left shoulder dislocation with status post surgery, polysubstance abuse presented to the ED with a chief complaint of left shoulder pain and numbness in the fingers status post seizure this morning. According to the patient he had unprovoked and sudden seizure episode without aura that was witnessed by his aunt at home this morning . Patient states on waking up on the hard floor w/numbness to his left shoulder and being informed by his aunt on her failed attempt to catch him mid- fall by his left arm prior to hitting the ground w/head injury and going "in-and-out" of a seizure for "25x minutes." Patient states on bite wound being located to the back of his tongue. Patient mentioned he has been compliant with seizure medication and last seizure episode was last month. Patient denies having any additional injuries, headache, dizziness, lightheadedness, weakness, pain, speech or vision changes, fever, chills, or any change in bowel or bladder habit. Past Medical History Status epilepticus, chronic shoulder dislocation Past Surgical History Surgery for Lt shoulder dislocation Family History: None Past Social History Smoker ,smoke 2 cigarettes per day, occasional drinker, history of polysubstance abuse and quit 1 month ago Review of Systems Constitutional: No: Fever, Chills, Sweats, Weakness, Malaise, Other Eyes: No: Pain, Vision change, Conjunctivae inflammation, Eyelid inflammation, Other, Redness ENT: No: Ear pain, Ear discharge, Nose pain, Nose discharge, Nose congestion, Mouth pain, Mouth swelling, Throat pain, Throat swelling, Other Respiratory: No: Cough, Dry, Shortness of breath, SOB with excertion, Wheezing, Hemoptysis, Pleuritic Pain, Sputum, Wheezing, Other Cardiovascular: No: Chest Pain, Palpitations, Orthopnea, Paroxysmal Noc. Dyspnea, Edema, Lt Headedness, Other Gastrointestinal: No: Nausea, Vomiting, Abdominal Pain, Diarrhea, Constipation, Melena, Hematochezia, Other Genitourinary: No Dysuria, No Frequency, No Incontinence, No Hematuria, No Retention, No Other Musculoskeletal: neck pain, shoulder pain, arm pain, hand pain; No: other, back pain, leg pain, foot pain Skin: No: Rash, Lesions, Jaundice, Bruising, Other Neurological: No: Weakness, Numbness, Incoordination, Change in speech, Confusion, Seizures, Other Allergies: Coded Allergies: NO KNOWN ALLERGIES (Unverified , 04/04/10) Medications Current Medications Medications Dose Ordered Sig/Anuj Route Start Time Stop Time Status Last Admin Dose Admin Sodium Chloride 10 ml Q8HR IV 08/26/24 06:00 Sodium Chloride 1,000 ml @ 75 mls/hr [id number] IV 08/26/24 05:30 Acetaminophen 325 mg Q4HP PRN PO 08/26/24 05:30 Acetaminophen/ Hydrocodone Bitart 1 tab Q4HP PRN PO 08/26/24 05:30 Ondansetron HCl 4 mg Q4HP PRN IV 08/26/24 05:30 Nitroglycerin 0.4 mg Q5MINP PRN SL 08/26/24 05:30 Morphine Sulfate 2 mg Q30M PRN IV 08/26/24 05:30 Clonazepam 1 mg HS PO 08/26/24 22:00 UNV Patient Own Medication 1 tab BID PO 08/26/24 10:00 UNV Patient Own Medication 1.5 tab BID PO 08/26/24 10:00 UNV Exam Vital Signs Vital Signs Date Time Temp Pulse Resp B/P (MAP) Pulse Ox O2 Delivery O2 Flow Rate FiO2 08/26/24 04:28 98.8 80 16 98.8 08/26/24 01:25 129/93 (105) 97 General Appearance: Alert, Oriented X3, Cooperative, No acute distress, mild distress HEENT: Atraumatic, PERRLA, EOMI, Mucous membr. moist/pink Respiratory: Clear to auscultation, Normal air movement Cardiovascular: Regular rate, Normal S1, Normal S2, No murmurs Abdominal: Normal bowel sounds, No tenderness, No hepatospenomegaly, No masses Extremities: No clubbing, No cyanosis, No edema, Normal pulses, Other (Pain in the left shoulder and not able to elevate the left arm and tingling sensation in the fingers) Skin: No rashes, No breakdown, No significant lesion Neuro: Normal gait, Normal speech, Strength at 5/5 X4 ext, Normal tone, Sensation intact, Other (Grossly intact cranial nerves) Psych/Mental Status: Mental status NL, Mood NL Labs/Xrays Labs Test 08/26/24 04:50 Range/Units White Blood Count 7.4 4.4-10.8 10^3/uL Red Blood Count 4.92 4.5-5.90 10^6/uL Hemoglobin 14.6 13.5-17.5 g/dL Hematocrit 43.7 41.0-53.0 % Mean Corpuscular Volume 88.8 80.0-100.0 fL Mean Corpuscular Hemoglobin 29.7 28.0-32.0 pg Mean Corpuscular Hemoglobin Concent 33.5 32.0-36.0 g/dL Red Cell Distribution Width 14.3 11.8-14.3 % Platelet Count 292 140-450 10^3/uL Mean Platelet Volume 8.0 6.9-10.8 fL Neutrophils (%) (Auto) 63.6 37.0-80.0 % Lymphocytes (%) (Auto) 25.4 10.0-50.0 % Monocytes (%) (Auto) 9.1 0.0-12.0 % Eosinophils (%) (Auto) 1.4 0.0-7.0 % Basophils (%) (Auto) 0.5 0.0-2.0 % Neutrophils # (Auto) 4.7 1.6-8.6 10 ^3/uL Lymphocytes # (Auto) 1.9 0.4-5.4 10 ^3/uL Monocytes # (Auto) 0.7 0-1.3 10 ^3/uL Eosinophils # (Auto) 0.1 0-0.8 10 ^3/uL Basophils # (Auto) 0 0-0.2 10 ^3/uL Nucleated Red Blood Cells 0.1 % Sodium Level 137 136-145 mmol/L Potassium Level 4.3 3.5-5.1 mmol/L Chloride Level 107 98-107 mmol/L Carbon Dioxide Level 22 20-31 mmol/L Anion Gap 8 5-15 Blood Urea Nitrogen 19 9-23 mg/dL Creatinine 0.77 0.700-1.30 mg/dL Glomerular Filtration Rate Calc 127 >90 mL/min BUN/Creatinine Ratio 24.7 H 10.0-20.0 Serum Glucose 93 74-106 mg/dL Calcium Level 9.6 8.7-10.4 mg/dL Total Bilirubin 0.4 0.2-1.0 mg/dL Aspartate Amino Transferase (AST) 26 13-40 U/L Alanine Aminotransferase (ALT) 73 H 7-40 U/L Alkaline Phosphatase 84 46-116 U/L Total Protein 7.4 5.7-8.2 g/dL Albumin 4.9 H 3.2-4.8 g/dL Assessment/Plan Assessment/Plan Assessment and plan: # status post seizure, history of epilepsy - Patient has had an unprovoked sudden seizure episode without aura today morning - Head CT revealed no acute intracranial abnormality - normal saline at 75 mL/hour - Continue [id number] mg b.i.d. - Continue divalproex sodium 500 mg b.i.d. - Consulted neurology # Possible left shoulder dislocation, status post surgery for recurrent left jadon ulder dislocation - CT left shoulder revealed chronic fracture is seen along the anteroinferior aspect of the glenoid suggestive of Bankart lesion with postoperative screws seen across it and flattening of the glenoid fossa and humeral head - IV Toradol 30 mg q.6 p.r.n. - Lt shoulder immobilizer and arm slings - Consulted orthopedics Goal of care discussed with the patient for more than 20 minutes full code Plan of treatment discussed with Dr. Montes Plan discussed with: Patient, Other My Orders Orders - JO PRASAD RESIDENT Procedure Category Date Status Time Admit ADMIT 08/26/24 Transmitted 05:18 Allergies ALEX 08/26/24 In Process 05:18 Code Status CODE 08/26/24 Transmitted 05:18 Sodium Chloride Lock PHA 08/26/24 In Process (Saline Lock Ns) 06:00 Sodium Chloride 0.9% PHA 08/26/24 In Process 05:30 Acetaminophen Tablet PHA 08/26/24 In Process (Tylenol Tablet) 05:30 Hydrocodone-Acet PHA 08/26/24 In Process 5/325mg Tab (Nicolaus 05:30 Ondansetron Hcl PHA 08/26/24 In Process (Zofran) 05:30 Fall Risk Precautions ALEX 08/26/[address] 05:18 Complete Blood Count LAB 08/27/24 Verified 04:00 Comprehensive LAB 08/27/24 Verified Metabolic Panel 04:00 Nitroglycerin PHA 08/26/24 In Process Sublingual (Ntrostat 05:30 Morphine Sulfate PHA 08/26/24 In Process Injection 05:30 Oxygen By Nasal RT 08/26/24 Transmitted Cannula 05:18 Stat Ekg For Chest [facility] 08/26/24 In Process Pain 05:18 Notify Md Of Changes [facility] 08/26/24 In Process From Base 05:18 Warehouse Stocker For [facility] 08/26/24 In Process 24 Hours 05:18 Emergency Dysrhythmia [facility] 08/26/24 In Process Protocol 05:18 Rhythm Strips Once [facility] 08/26/24 In Process Every Shift 05:18 Clonazepam Tablet [facility] 08/26/24 Logged (Klonopin Tablet) 22:00 (Nf) Divalproex PHA 08/26/24 Logged Sodium (Depakote Er) 10:00 (Nf) Levetiracetam PHA 08/26/24 Logged 10:00 Date of Service: Aug 26, 2024 Billing Provider: KANIKA MONTES MD Common Visit Codes: [id number] INP/OBS CARE (HIGH) JO PRASAD RESIDENT Aug 26, 2024 05:49 KANIKA MONTES MD Aug 26, 2024 09:05
[2024-08-26] MEDS: SODIUM CHLOR 0.9% PF (SALINE LOCK) 10ML VIAL/SYR IV SCH (06:05)
[2024-08-26 06:15] VITALS: PULSE 80; RESP 16; O2SAT 97
[2024-08-26] MEDS ORDERED: LORazepam 2MG/ML-1ML VIAL IV PRN (06:15)
[2024-08-26 08:00] VITALS: PULSE 71; RESP 16; TEMP 97.6; O2SAT 97
[2024-08-26] MEDS: KETOROLAC TROMETH 30 MG/ML 1ML VIAL IV PRN (08:18)
--- NOTE | 2024-08-26 09:10 | DVHINCON2 ---
Date of service: Aug 26, [address] Lewis Reason for Consultation Seizure, history of epilepsy History of Present Illness Mr. Vazquez is a 24 years old gentleman with a history of seizure disorder, left showed fracture (fixed on 07/06/2024), the patient came to the hospital on because of seizure activity. At this time, he is alert and oriented, he is able to provide history, but he does not remember his seizure medications I saw him on 09/16/2017, 09/28/2017, 07/07/24, 07/12/2024 for seizure activity. This is the 1st seizure after he was discharged from [facility] on 07/13/2024. He does not remember, but he was said to have a grand mal seizure before he came to hospital, in the during the seizure attack, he is on was pulling his left arm to prevent a fall, which worsened the pain in the left shoulder According to my previous consult reports dated 09/28/2017, his mother reported t hat his seizure started when he was 1-year-old, it was generalized shaking with loss of consciousness and a post ictal confusion On 09/28/17 I witnessed a seizure attack. The seizure started with head bending over, eyes closing and nonresponsiveness, whole-body stiffed up, he made tight fists, arms closed to the chest, legs mildly flexed in the hips and knees, toes flexed. There was a very strong resistance to passive eye opening, and I was opened his eyes once, which showed dilated pupil with good reflexes. The color of his face, lips were normal. The whole seizure was in about 15 minutes. Soon after he woke up, he requested food. 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 According to my progress note dated on 09/29/2017, the patient had numerous seizures with atypical feature On 07/07/2024, he reported all his seizure breakthrough where street drug related He sees a neurologist in the [facility], according to his mother, he is on Depakote 500 mg b.i.d., Keppra 1000 mg b.i.d.. He claimed he is on zonisamide 300 mg daily (added recently) He still have seizure once a while [phone] UDS, 07/05/2024: Cocaine Plasma alcohol, 08/26/2024: Normal CBC, 08/26/2024: Unremarkable CMP, 08/26/2024: Unremarkable CT head, 07/05/2024: 1. No intracranial abnormality detected. 2. No acute infarct or space occupying lesion is seen. 3. No intracranial hemorrhage or calvarial fracture CT head, 07/12/2024: No acute intracranial abnormality CT head, 08/26/2024: 1. No evidence of calvarial fracture or extra-axial collection. 2. No acute intracranial abnormality. No evidence of acute infarct or intracranial hemorrhage. 3. Wade-white matter differentiation is well maintained. 4. S-shaped deviation of the nasal septum. Mucosal thickening in the left maxillary sinus, measuring up to [address] shoulder, 09/29/17:1. Large Hill-Sachs fracture of the humeral head measuring 24 mm in length and 7 mm in depth as above. 2. A 9 x 4 mm bone fragment along the anterior aspect of the scapular body may reflect medially displaced bony Bankart fracture fragment or avulsion fracture from the glenoid attachment of the anterior band of the inferior glenohumeral ligament. 3. Large glenohumeral joint effusion. 4. No evidence of glenohumeral dislocation though there is slig ht anterior decentering of the humeral head . Consider correlation with MRI for better evaluation of soft tissue structures such including the labrum as clinically warrante CT left shoulder, 07/05/2024: 1. Anterior glenohumeral joint dislocation. Acute hill-Sachs fracture. Acute comminuted and displaced osseous Bankart. Joint effusion. 2. Left basilar atelectasis. CT, left shoulder, 08/26/2024: 1. Chronic fracture is seen along the anteroinferior aspect of the glenoid suggestive of Bankart lesion with pos toperative screws seen across it. 2. Flattening of the glenoid fossa and humeral head. 3. A few periarticular osteophytes are seen arising from the glenoid and humeral head, suggestive of degenerative osteoarthritis Past Medical History Seizures, Left shoulder dislocation Past Surgical History Left shoulder fracture repair Family History: Patient reports no known family medical history. Social History Non-Smoker Alcohol: Occasionally Drugs: Marijuana, street drugs Lives In: Home Allergies: Coded Allergies: NO KNOWN ALLERGIES (Unverified , 04/04/10) Home Meds Active Scripts Divalproex Sodium (Depakote Er) 500 Mg Tab, 1 TAB PO BID, #60 TAB 2 Refills Prov:JACKELYN SANCHEZ MD 07/13/24 Levetiracetam (Keppra) 1,000 Mg Tab, 1 TAB PO BID, #60 TAB 5 Refills Prov:JACKELYN SANCHEZ MD 07/13/24 Hydrocodone-Acetaminophen (Hydrocodone Bitartrate/AC 5-325 mg) 1 Tab Tab, 1 TAB PO Q6HPRN PRN, #20 TAB Prov:GATITO VENTURA PAC 07/11/24 Ibuprofen Micronized (Ibuprofen) 800 Mg Tab, 800 MG PO Q8HPRN PRN, #20 TAB Prov:GATITO VENTURA PAC 07/11/24 Oxycodone W/ Acetaminophen (Percocet 5/325MG) 1 Tab Tb, 2 TAB PO QID for 5 Days, #40 TAB Prov:JEANNIE MERCHANT NP 07/08/24 Levetiracetam (Keppra) 500 Mg Tab, 500 MG PO BID, #30 MG Prov:CHARISSE HILLS MD 04/18/23 Reported Medications Levetiracetam (Levetiracetam) 1,000 Mg Tab, 1.5 TAB PO BID 07/05/24 Divalproex Sodium (Divalproex Sodium Dr) 500 Mg Tab, 1 TAB PO BID 07/05/24 Trazodone Hcl (Trazodone Hcl) 50 Mg Tab, 50 MG PO HS, TAB 11/10/17 Clonazepam (KlonoPIN TABLET) 0.5 Mg Tb, 1 MG PO HS 11/10/17 Zonisamide (Zonisamide) 100 Mg Cap, 300 MG PO HS 10/01/17 Current Medications Current Medications Medications (Trade) Dose Ordered Sig/Anuj Route PRN Reason Start Time Stop Time Status Last Admin Sodium Chloride (Saline Lock Ns) 10 ml Q8HR IV 08/26/24 06:00 08/26/24 06:05 Sodium Chloride 1,000 ml @ 75 mls/hr [id number] IV 08/26/24 05:30 08/26/24 05:45 Acetaminophen (Tylenol Tablet) 325 mg Q4HP PRN PO MILD PAIN (1-3 PAIN SCALE) 08/26/24 05:30 Acetaminophen/ Hydrocodone Bitart (Saranac 5/325MG Tab) 1 tab Q4HP PRN PO MODERATE PAIN (4-6 PAIN SCALE) 08/26/24 05:30 Ondansetron HCl (Zofran) 4 mg Q4HP PRN IV NAUSEA / VOMITING 08/26/24 05:30 Nitroglycerin (Ntrostat Sublingual) 0.4 mg Q5MINP PRN SL FOR CHEST PAIN 08/26/24 05:30 Morphine Sulfate 2 mg Q30M PRN IV FOR CHEST PAIN 08/26/24 05:30 Clonazepam (KlonoPIN TABLET) 1 mg HS PO 08/26/24 22:00 Divalproex Sodium (Depakote "Dr" Tablet) 500 mg BID PO 08/26/24 10:00 Levetiracetam (Keppra Tablet) 1,500 mg BID PO 08/26/24 10:00 Ketorolac Tromethamine (Toradol Injection) 30 mg Q6HPRN PRN IV SEVERE PAIN (7-10 PAIN SCALE) 08/26/24 06:15 08/31/24 06:14 08/26/24 08:18 Lorazepam (Ativan Inj) 1 mg Q6HP PRN IV ANXIETY 08/26/24 06:15 Review of Systems As above, the other systems are negative Vital Signs Vital Signs Date Time Temp Pulse Resp B/P (MAP) Pulse Ox O2 Delivery O2 Flow Rate FiO2 08/26/24 08:00 74 08/26/24 06:31 13 115/76 (89) 96 08/26/24 06:15 Room Air* 0 21 08/26/24 04:28 98.8 98.8 Physical Exam GENERAL EXAM: General: the patient is well developed and nourished. No acute distress. HEENT: Normocephalic, neck is supple, no carotid bruits. No mass. RESPIRATORY: Normal respiratory effort with symmetrical lung expansion. Lungs clear to auscultation. CARDIOVASCULAR: Regular rate and rhythm with no murmurs. S1, S2. ABDOMEN: Soft, nontender, normal bowel sound Tenderness to palpation in the left shoulder NEUROLOGICAL: MENTAL STATUS: Awake and alert. Oriented x 3 SPEECH, LANGUAGE, HIGHER CORTICAL FUNCTION: no aphasia or dysathria. CRANIAL NERVES: #2: Intact visual camara to confrontation. #3,4,6: Pupils are equal, round and reactive. EOMs full and conjugate. No nystagmus. #5: Facial sensation intact in all three divisions bilaterally. Mandibular strength intact. #7: Facial muscles symmetrical and strength intact. #8: Hearing grossly normal to voice. #9,10: Uvula and soft palate rise in the midline. Swallow and voice are normal. #11: Trapezius and sternomastoid strength intact bilaterally. #12: Tongue midline. No fasciculations or atrophy. SENSATION: Sensation to touch and pinprick is normal. MOTOR: Normal tone in the upper and lower extremity. Normal muscle bulk. No fasciculations. No abnormal movements or posturing. Muscle strength of the major groups in the upper extremities is 5/5. Muscle strength of the major groups in the lower extremities is 5/5. REFLEXES: Deep tendon reflexes normal and symmetrical. No pathological reflexes. CEREBELLAR/COORDINATION: Finger to nose are normal bilaterally. GAIT/STATION: deferred. Labs/Diagnostic Data Labs Test 08/26/24 04:50 Range/Units White Blood Count 7.4 4.4-10.8 10^3/uL Red Blood Count 4.92 4.5-5.90 10^6/uL Hemoglobin 14.6 13.5-17.5 g/dL Hematocrit 43.7 41.0-53.0 % Mean Corpuscular Volume 88.8 80.0-100.0 fL Mean Corpuscular Hemoglobin 29.7 28.0-32.0 pg Mean Corpuscular Hemoglobin Concent 33.5 32.0-36.0 g/dL Red Cell Distribution Width 14.3 11.8-14.3 % Platelet Count 292 140-450 10^3/uL Mean Platelet Volume 8.0 6.9-10.8 fL Neutrophils (%) (Auto) 63.6 37.0-80.0 % Lymphocytes (%) (Auto) 25.4 10.0-50.0 % Monocytes (%) (Auto) 9.1 0.0-12.0 % Eosinophils (%) (Auto) 1.4 0.0-7.0 % Basophils (%) (Auto) 0.5 0.0-2.0 % Neutrophils # (Auto) 4.7 1.6-8.6 10 ^3/uL Lymphocytes # (Auto) 1.9 0.4-5.4 10 ^3/uL Monocytes # (Auto) 0.7 0-1.3 10 ^3/uL Eosinophils # (Auto) 0.1 0-0.8 10 ^3/uL Basophils # (Auto) 0 0-0.2 10 ^3/uL Nucleated Red Blood Cells 0.1 % Sodium Level 137 136-145 mmol/L Potassium Level 4.3 3.5-5.1 mmol/L Chloride Level 107 98-107 mmol/L Carbon Dioxide Level 22 20-31 mmol/L Anion Gap 8 5-15 Blood Urea Nitrogen 19 9-23 mg/dL Creatinine 0.77 0.700-1.30 mg/dL Glomerular Filtration Rate Calc 127 >90 mL/min BUN/Creatinine Ratio 24.7 H 10.0-20.0 Serum Glucose 93 74-106 mg/dL Calcium Level 9.6 8.7-10.4 mg/dL Total Bilirubin 0.4 0.2-1.0 mg/dL Aspartate Amino Transferase (AST) 26 13-40 U/L Alanine Aminotransferase (ALT) 73 H 7-40 U/L Alkaline Phosphatase 84 46-116 U/L Total Protein 7.4 5.7-8.2 g/dL Albumin 4.9 H 3.2-4.8 g/dL Plasma/Serum Blood Alcohol < 3.0 <10 mg/dL Assessment Generalized tonic seizure Mixed epileptic and nonepileptic seizure Left shoulder fracture Plan/Recommendation Monitoring Supportive treatment Depakote 500 mg b.i.d. Keppra 1000 mg b.i.d. Zonisamide 300 mg HS Ativan for seizure activity Quit substance abuse Current pain management He does not drive Follow up with his [place] neurologist on discharge Progress: Poor This medical document was created using an electronic medical record system with [employer] dictation system. Although this document has been carefully reviewed, there may still be some phonetic and typographical errors. These areas are purely typographical due to imperfections of the software programs, and do not reflect any compromise in the patient's medical care. Plan discussed with: Patient, Other PAM TABOR MD Aug 26, 2024 09:10
[2024-08-26] MEDS: levETIRAcetam 500 MG TAB PO SCH ×2 (09:56→10:15)
--- NOTE | 2024-08-26 10:07 | DVHPNRES ---
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 According to the patient he had unprovoked and sudden seizure episode without aura that was witnessed by his aunt at home this morning . Patient states on waking up on the hard floor w/numbness to his left shoulder and being informed by his aunt on her failed attempt to catch him mid-fall by his left arm prior to hitting the ground w/head injury and going "in-and-out" of a seizure for "25x minutes." Patient states on bite wound being located to the back of his tongue. Patient mentioned he has been compliant with seizure medication and last seizure episode was last month. Patient denies any additional symptoms. Initial labs showed normal CBC and CMP. CT scan of the head without contrast showed no evidence of acute intracranial abnormalities. CT scan of the shoulder showed chronic fracture in the anterior inferior aspect of the glenoid suggestive of Bankart lesion with postoperative screws seen across it. There is also a few periarticular osteophytes are seen arising from the glenoid and humeral head suggestive degenerative osteoarthritis. patient was admitted for further assessment and management from neurology and orthopaedic. Patient seen and examined at bedside. Patient still complains about pain and inability to abduct the left shoulder and actively move it at this time. Left shoulder x-ray was ordered which showed no evidence of acute fracture or dislocation. Soft tissues were unremarkable as well. Orthopedics was consulted by rn shift mgr for assessment of the left shoulder. Neurology is on board and recommended restarting the patient back on levetiracetam 1000 mg b.i.d. and divalproex sodium 500 mg b.i.d. the patient is currently stable at this time, we will discuss with Neurology the possibility of increasing or maintaining current antiseizure medications. ROS Constitutional: Denies weight loss, fever and chills. HEENT: Denies changes in vision and hearing. Respiratory: Denies shortness of breath and cough Cardiovascular: Denies chest discomfort or palpitations GI: Denies abdominal pain, nausea, vomiting and diarrhea. : Denies dysuria and urinary frequency. Musculoskeletal: Reports moderate to severe pain in the left shoulder with inability of abduction or any active movement at this time. Denies myalgias and joint pain Skin: Denies rash and pruritus. Neurological: Denies dizziness, headache, vision or hearing problems Objective vital signs Vital Sign Date Time Temp Pulse Resp B/P (MAP) Pulse Ox O2 Delivery O2 Flow Rate FiO2 08/26/24 08:00 71 16 97 Room Air* 0 21 08/26/24 08:00 97.6 137/91 (106) 97.6 medications Current Medications Medications Dose Ordered Sig/Anuj Route Start Time Stop Time Status Last Admin Dose Admin Sodium Chloride 10 ml Q8HR IV 08/26/24 06:00 08/26/24 06:05 10 ML Sodium Chloride 1,000 ml @ 75 mls/hr [id number] IV 08/26/24 05:30 08/26/24 05:45 75 MLS/HR Acetaminophen 325 mg Q4HP PRN PO 08/26/24 05:30 Acetaminophen/ Hydrocodone Bitart 1 tab Q4HP PRN PO 08/26/24 05:30 Ondansetron HCl 4 mg Q4HP PRN IV 08/26/24 05:30 Nitroglycerin 0.4 mg Q5MINP PRN SL 08/26/24 05:30 Morphine Sulfate 2 mg Q30M PRN IV 08/26/24 05:30 Clonazepam 1 mg HS PO 08/26/24 22:00 Divalproex Sodium 500 mg BID PO 08/26/24 10:00 08/26/24 09:56 500 MG Levetiracetam 1,500 mg BID PO 08/26/24 10:00 08/26/24 09:56 1,500 MG Ketorolac Tromethamine 30 mg Q6HPRN PRN IV 08/26/24 06:15 08/31/24 06:14 08/26/24 08:18 30 MG Lorazepam 1 mg Q6HP PRN IV 08/26/24 06:15 Examination Physical Examination General: Patient alert and oriented in person, place and time. Patient following commands. HEENT: Normocephalic, atraumatic, moist mucous membranes Respiratory/pulmonary: Clear lungs bilaterally, no associated crackles or wheezes. Cardiovascular: Normal regular heart sounds S1 and S2 with no associated murmurs Abdomen: Abdomen nondistended, there is no pain to palpation in any of the abdominal quadrants, no palpable masses. Extremities: There is severe left shoulder pain with inability of actively moving left shoulder. There is no peripheral edema present at the lower extremities. Peripheral Pulses: 3+ Radial (R). 3+ Radial (L). 3+ Dorsalis pedis (R). 3+ Dorsalis pedis(L) Skin: No rashes or pruritus, there is no sacral edema present at this time. Neurological: Intact cranial nerves with no focal neurologic deficits laboratory and microbiology Laboratory Tests 08/26/24 04:50 Test 08/26/24 04:50 Range/Units Serum Glucose 93 74-106 mg/dL Problem List/Assessment/Plan Problem List/Assessment/Plan Assessment/Plan Seizure disorder/epilepsy -Patient was taking keppra 1000mg BID and divalproex sodium 500mg BID -Head CT revealed no acute intracranial abnormality -Currently on IV N/S at 75 mL/hour -Restart levetiracetam at 1000mg BID po and divalproex sodium 500mg BID po -Neurology on board Left shoulder dislocation, already repositioned -S/P left shoulder surgery -Patient unable to abduct or actively move his left shoulder -CT left shoulder revealed chronic fracture is seen along the anteroinferior aspect of the glenoid suggestive of Bankart lesion with postoperative screws seen across it and flattening of the glenoid fossa and humeral head -Left shoulder X ray showed no evidence of acute fracture or dislocation and soft tissues were unremarkable. Surgical screw fixation of the glenoid was appreciated. -IV ketorolac 30 mg q.6 p.r.n. -Lt shoulder immobilizer and arm slings -Consulted orthopedics Goals of care discussed with the patient at bedside for >23min, FULL CODE Plan discussed with Dr. Alonzo Plan discussed with: Patient Date of Service: Aug 26, 2024 Billing Provider: JACKELYN ALONZO MD Common Visit Codes: NOT BILLABLE CHANDRAKANT FORDE RESIDENT Aug 26, 2024 10:07 JACKELYN ALONZO MD Aug 27, 2024 20:26
--- NOTE | 2024-08-26 10:54 | DVH ---
CLINICAL INDICATION: FALL INJURY TECHNIQUE: XY L SHOULDER 2+ VIEW XRAY Comparison: XY L SHOULDER 2+ VIEW XRAY on DOS: 07/12/24, XY L SHOULDER 2+ VIEW XRAY on DOS: 07/11/24, X Y L SHOULDER 2+ VIEW XRAY on DOS: 07/06/24 FINDINGS/IMPRESSION: There is no evidence of acute fracture or dislocation. Soft tissues are unremarkable. Surgical screw fixation of the glenoid.
[2024-08-26 15:02] LABS: Urine Bacteria None Seen /hpf (None Seen)
[2024-08-26 15:13] LABS: Urine Blood Negative /uL (Negative); Urine Clarity Clear (Clear); Urine Color Light-Yellow (Yellow); Urine Mucus FEW (None Seen); Urine Protein, UAD Negative (Negative); Urine Specific Gravity 1.023 (1.001-1.035); Urine Urobilinogen Normal (Negative); Urine WBC 2 /hpf (0 - 3)
[2024-08-26 15:22] LABS: Amphetamine Screen, Urine Neg (NEGATIVE); Benzodiazephine Screen, Urine Neg (NEGATIVE)
[2024-08-26 15:23] LABS: Barbiturate Scree,Urine Neg (NEGATIVE); Cannabinoid Screen, Urine Neg (NEGATIVE); Cocaine Screen, Urine Neg (NEGATIVE); Opiate Scree,Urine Neg (NEGATIVE); Phencyclidine Screen, Urine Neg (NEGATIVE)
[2024-08-26 16:00] VITALS: BP 105/57; PULSE 80; RESP 13; O2SAT 95
--- NOTE | 2024-08-26 16:03 | DVHINCON2 ---
Date of service: Aug 26, 2024 Reason for Consultation Left shoulder pain History of Present Illness Mr. Vazquez is a 24-year-old male who was brought to the emergency room due to left shoulder pain and numbness to his left hand S/P seizure this morning. Patient reports that he had an unprovoked seizure that was witnessed by his and at home this morning and reports waking up on the floor with pain and numbness. Patient reports that his aunt witnessed him fall to the floor and hit his head going in and out of the seizure. Patient denied any recurrent seizures since last month. Patient reports continued pain and limited range of motion to his left shoulder but is otherwise feeling well denying any other complaint or concern during my evaluation. Past Medical History Status epilepticus, chronic shoulder dislocation Past Surgical History Left shoulder Latarjet Family History: Patient reports no known family medical history. Family History Noncontributory Social History Smoker ,smoke 2 cigarettes per day, occasional drinker, history of polysubstance abuse and quit 1 month ago Allergies: Coded Allergies: NO KNOWN ALLERGIES (Unverified , 04/04/10) Home Meds Active Scripts Divalproex Sodium (Depakote Er) 500 Mg Tab, 1 TAB PO BID, #60 TAB 2 Refills Prov:JACKELYN SANCHEZ MD 07/13/24 Levetiracetam (Keppra) 1,000 Mg Tab, 1 TAB PO BID, #60 TAB 5 Refills Prov:JACKELYN SANCHEZ MD 07/13/24 Hydrocodone-Acetaminophen (Hydrocodone Bitartrate/AC 5-325 mg) 1 Tab Tab, 1 TAB PO Q6HPRN PRN, #20 TAB Prov:GATITO VENTURA PAC 07/11/24 Ibuprofen Micronized (Ibuprofen) 800 Mg Tab, 800 MG PO Q8HPRN PRN, #20 TAB Prov:GATITO VENTURA PAC 07/11/24 Oxycodone W/ Acetaminophen (Percocet 5/325MG) 1 Tab Tb, 2 TAB PO QID for 5 Days, #40 TAB Prov:JEANNIE MERCHANT NP 07/08/24 Levetiracetam (Keppra) 500 Mg Tab, 500 MG PO BID, #30 MG Prov:CHARISSE HILLS MD 04/18/23 Reported Medications Levetiracetam (Levetiracetam) 1,000 Mg Tab, 1.5 TAB PO BID 07/05/24 Divalproex Sodium (Divalproex Sodium Dr) 500 Mg Tab, 1 TAB PO BID 07/05/24 Trazodone Hcl (Trazodone Hcl) 50 Mg Tab, 50 MG PO HS, TAB 11/10/17 Clonazepam (KlonoPIN TABLET) 0.5 Mg Tb, 1 MG PO HS 11/10/17 Zonisamide (Zonisamide) 100 Mg Cap, 300 MG PO HS 10/01/17 Current Medications Current Medications Medications (Trade) Dose Ordered Sig/Anuj Route PRN Reason Start Time Stop Time Status Last Admin Sodium Chloride (Saline Lock Ns) 10 ml Q8HR IV 08/26/24 06:00 08/26/24 14:10 Sodium Chloride 1,000 ml @ 75 mls/hr [id number] IV 08/26/24 05:30 08/26/24 05:45 Acetaminophen (Tylenol Tablet) 325 mg Q4HP PRN PO MILD PAIN (1-3 PAIN SCALE) 08/26/24 05:30 Acetaminophen/ Hydrocodone Bitart ([place] 5/325MG Tab) 1 tab Q4HP PRN PO MODERATE PAIN (4-6 PAIN SCALE) 08/26/24 05:30 Ondansetron HCl (Zofran) 4 mg Q4HP PRN IV NAUSEA / VOMITING 08/26/24 05:30 Nitroglycerin (Ntrostat Sublingual) 0.4 mg Q5MINP PRN SL FOR CHEST PAIN 08/26/24 05:30 Morphine Sulfate 2 mg Q30M PRN IV FOR CHEST PAIN 08/26/24 05:30 Clonazepam (KlonoPIN TABLET) 1 mg HS PO 08/26/24 22:00 Divalproex Sodium (Depakote "Dr" Tablet) 500 mg BID PO 08/26/24 10:00 08/26/24 09:56 Levetiracetam (Keppra Tablet) 1,500 mg BID PO 08/26/24 10:00 08/26/24 10:22 DC 08/26/24 09:56 Ketorolac Tromethamine (Toradol Injection) 30 mg Q6HPRN PRN IV SEVERE PAIN (7-10 PAIN SCALE) 08/26/24 06:15 08/31/24 06:14 08/26/24 15:29 Lorazepam (Ativan Inj) 1 mg Q6HP PRN IV ANXIETY 08/26/24 06:15 Levetiracetam (Keppra Tablet) 1,000 mg BID PO 08/26/24 10:15 Patient Own Medication 300 mg HS PO 08/26/24 22:00 Review of Systems 10 point review of systems negative except as per HPI Vital Signs Vital Signs Date Time Temp Pulse Resp B/P (MAP) Pulse Ox O2 Delivery O2 Flow Rate FiO2 08/26/24 12:00 68 11 85/52 (63) 94 08/26/24 08:00 Room Air* 0 21 08/26/24 08:00 97.6 97.6 Physical Exam General appearance: A&O x4 in no acute distress HEENT: Normal ENT inspection, pharynx normal, TMs normal Neck: Full range of motion, nontender, normal inspection Respiratory: Chest nontender, without accessory muscle use, no respiratory distress Cardiovascular: No edema, no JVD, normal peripheral pulses Gastrointestinal: Soft, nontender, no organomegaly. Musculoskeletal: Left shoulder range of motion grossly limited with pain on movement, remains in sling, normal capillary refill, no pedal edema, neurovascularly intact. Skin: Dry, normal color, warm Lymphatic: No adenopathy Labs/Diagnostic Data Labs Test 08/26/24 15:00 08/26/24 04:50 Range/Units Urine Color Light-yellow Yellow Urine Clarity Clear Clear Urine pH 6.0 5.0-9.0 Urine Specific [place] 1.023 1.001-1.035 Urine Protein Negative Negative Urine Ketones Negative Negative Urine Blood Negative Negative /uL Urine Nitrite Negative Negative Urine Bilirubin Negative Negative Urine Urobilinogen Normal Negative mg/dL Urine Leukocyte Esterase Negative Negative /uL Urine RBC <1 0 - 3 /hpf Urine WBC 2 0 - 3 /hpf Urine Squamous Epithelial Cells None seen <5 /hpf Urine Bacteria None seen None Seen /hpf Urine Mucus Few None Seen Urine Glucose Normal Normal mg/dL Urine Opiates Screen Neg NEGATIVE Urine Fentanyl Screen Neg NEGATIVE Urine Barbiturates Screen Neg NEGATIVE Urine Phencyclidine Screen Neg NEGATIVE Urine Amphetamines Screen Neg NEGATIVE Urine Benzodiazepines Screen Neg NEGATIVE Urine Cocaine Screen Neg NEGATIVE Urine Cannabinoids Screen Neg NEGATIVE White Blood Count 7.4 4.4-10.8 10^3/uL Red Blood Count 4.92 4.5-5.90 10^6/uL Hemoglobin 14.6 13.5-17.5 g/dL Hematocrit 43.7 41.0-53.0 % Mean Corpuscular Volume 88.8 80.0-100.0 fL Mean Corpuscular Hemoglobin 29.7 28.0-32.0 pg Mean Corpuscular Hemoglobin Concent 33.5 32.0-36.0 g/dL Red Cell Distribution Width 14.3 11.8-14.3 % Platelet Count 292 140-450 10^3/uL Mean Platelet Volume 8.0 6.9-10.8 fL Neutrophils (%) (Auto) 63.6 37.0-80.0 % Lymphocytes (%) (Auto) 25.4 10.0-50.0 % Monocytes (%) (Auto) 9.1 0.0-12.0 % Eosinophils (%) (Auto) 1.4 0.0-7.0 % Basophils (%) (Auto) 0.5 0.0-2.0 % Neutrophils # (Auto) 4.7 1.6-8.6 10 ^3/uL Lymphocytes # (Auto) 1.9 0.4-5.4 10 ^3/uL Monocytes # (Auto) 0.7 0-1.3 10 ^3/uL Eosinophils # (Auto) 0.1 0-0.8 10 ^3/uL Basophils # (Auto) 0 0-0.2 10 ^3/uL Nucleated Red Blood Cells 0.1 % Sodium Level 137 136-145 mmol/L Potassium Level 4.3 3.5-5.1 mmol/L Chloride Level 107 98-107 mmol/L Carbon Dioxide Level 22 20-31 mmol/L Anion Gap 8 5-15 Blood Urea Nitrogen 19 9-23 mg/dL Creatinine 0.77 0.700-1.30 mg/dL Glomerular Filtration Rate Calc 127 >90 mL/min BUN/Creatinine Ratio 24.7 H 10.0-20.0 Serum Glucose 93 74-106 mg/dL Calcium Level 9.6 8.7-10.4 mg/dL Total Bilirubin 0.4 0.2-1.0 mg/dL Aspartate Amino Transferase (AST) 26 13-40 U/L Alanine Aminotransferase (ALT) 73 H 7-40 U/L Alkaline Phosphatase 84 46-116 U/L Total Protein 7.4 5.7-8.2 g/dL Albumin 4.9 H 3.2-4.8 g/dL Plasma/Serum Blood Alcohol < 3.0 <10 mg/dL Left shoulder x-ray reviewed and demonstrated: There is no evidence of acute fracture or dislocation. Soft tissues are unremarkable. Surgical screw fixation of the glenoid. Left shoulder CT scan reviewed and demonstrated: 1. 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 2. Flattening of the glenoid fossa and humeral head. 3. A few periarticular osteophytes are seen arising from the glenoid and humeral head, suggestive of degenerative osteoarthritis. Assessment Left shoulder pain and chronic instability Plan/Recommendation I had a lengthy discussion with the patient and after discussing his case and reviewing his imaging studies with Dr. Leary we have recommended against any surgical intervention at this time and instead recommend the patient continue with conservative treatment with rice and to follow up with our office on an outpatient basis for further evaluation and treatment. I advised the patient to remain in his sling until he follows up with our office. He understood and agreed. Thank you for allowing us to participate in the care of your patient. Plan discussed with: Patient CECILIO LEAHY Blair WHITE Aug 26, 2024 16:03
--- NOTE | 2024-08-26 17:58 | DVHDSRES ---
Discharge Summary Date of Admission Resident Creating Document: CHANDRAKANT FORDE RESIDENT Aug 26, 2024 at 05:20 Date of Discharge: Aug 26, 2024 Admitting Diagnosis left shoulder pain, S/P seizure episode Wounds: No wounds present at this time Labs/Diagnostic Data: Laboratory Results Test 08/26/24 15:00 08/26/24 04:50 Urine Color Light-yellow (Yellow) Urine Clarity Clear (Clear) Urine pH 6.0 (5.0-9.0) Urine Specific [place] 1.023 (1.001-1.035) Urine Protein Negative (Negative) Urine Ketones Negative (Negative) Urine Blood Negative /uL (Negative) Urine Nitrite Negative (Negative) Urine Bilirubin Negative (Negative) Urine Urobilinogen Normal mg/dL (Negative) Urine Leukocyte Esterase Negative /uL (Negative) Urine RBC <1 /hpf (0 - 3) Urine WBC 2 /hpf (0 - 3) Urine Squamous Epithelial Cells None seen /hpf (<5) Urine Bacteria None seen /hpf (None Seen) Urine Mucus Few (None Seen) Urine Glucose Normal mg/dL (Normal) Urine Opiates Screen Neg (NEGATIVE) Urine Fentanyl Screen Neg (NEGATIVE) Urine Barbiturates Screen Neg (NEGATIVE) Urine Phencyclidine Screen Neg (NEGATIVE) Urine Amphetamines Screen Neg (NEGATIVE) Urine Benzodiazepines Screen Neg (NEGATIVE) Urine Cocaine Screen Neg (NEGATIVE) Urine Cannabinoids Screen Neg (NEGATIVE) White Blood Count 7.4 10^3/uL (4.4-10.8) Red Blood Count 4.92 10^6/uL (4.5-5.90) Hemoglobin 14.6 g/dL (13.5-17.5) Hematocrit 43.7 % (41.0-53.0) Mean Corpuscular Volume 88.8 fL (80.0-100.0) Mean Corpuscular Hemoglobin 29.7 pg (28.0-32.0) Mean Corpuscular Hemoglobin Concent 33.5 g/dL (32.0-36.0) Red Cell Distribution Width 14.3 % (11.8-14.3) Platelet Count 292 10^3/uL (140-450) Mean Platelet Volume 8.0 fL (6.9-10.8) Neutrophils (%) (Auto) 63.6 % (37.0-80.0) Lymphocytes (%) (Auto) 25.4 % (10.0-50.0) Monocytes (%) (Auto) 9.1 % (0.0-12.0) Eosinophils (%) (Auto) 1.4 % (0.0-7.0) Basophils (%) (Auto) 0.5 % (0.0-2.0) Neutrophils # (Auto) 4.7 10 ^3/uL (1.6-8.6) Lymphocytes # (Auto) 1.9 10 ^3/uL (0.4-5.4) Monocytes # (Auto) 0.7 10 ^3/uL (0-1.3) Eosinophils # (Auto) 0.1 10 ^3/uL (0-0.8) Basophils # (Auto) 0 10 ^3/uL (0-0.2) Nucleated Red Blood Cells 0.1 % Sodium Level 137 mmol/L (136-145) Potassium Level 4.3 mmol/L (3.5-5.1) Chloride Level 107 mmol/L (98-107) Carbon Dioxide Level 22 mmol/L (20-31) Anion Gap 8 (5-15) Blood Urea Nitrogen 19 mg/dL (9-23) Creatinine 0.77 mg/dL (0.700-1.30) Glomerular Filtration Rate Calc 127 mL/min (>90) BUN/Creatinine Ratio 24.7 (10.0-20.0) Serum Glucose 93 mg/dL (74-106) Calcium Level 9.6 mg/dL (8.7-10.4) Total Bilirubin 0.4 mg/dL (0.2-1.0) Aspartate Amino Transferase (AST) 26 U/L (13-40) Alanine Aminotransferase (ALT) 73 U/L (7-40) Alkaline Phosphatase 84 U/L (46-116) Total Protein 7.4 g/dL (5.7-8.2) Albumin 4.9 g/dL (3.2-4.8) Plasma/Serum Blood Alcohol < 3.0 mg/dL (<10) Other Laboratory Tests 08/26/24 04:50 Brief Hx & Hospital Course: This is a 24-year-old male with a history of epilepsy, chronic left shoulder dislocation with status post surgery, polysubstance abuse presented to the ED with a chief complaint of left shoulder pain and numbness in the fingers status post seizure in the morning of 08/25/24. According to the patient he had unprovoked and sudden seizure episode without aura that was witnessed by his aunt at home this morning . Patient states on waking up on the hard floor w/numbness to his left shoulder and being informed by his aunt on her failed attempt to catch him mid-fall by his left arm prior to hitting the ground w/head injury and going "in-and-out" of a seizure for "25x minutes." Patient states on bite wound being located to the back of his tongue. Patient mentioned he has been compliant with seizure medication and last seizure episode was last month. Patient denies any additional symptoms. Initial labs showed normal CBC and CMP. CT scan of the head without contrast showed no evidence of acute intracranial abnormalities. CT scan of the shoulder showed chronic fracture in the anterior inferior aspect of the glenoid suggestive of Bankart lesion with postoperative screws seen across it. There is also a few periarticular osteophytes are seen arising from the glenoid and humeral head suggestive degenerative osteoarthritis. Orthopaedic talked with the patient and recommended RICE therapy and no further intervention at this time. Patient went AMA after discussing with ortho team. ROS Constitutional: Denies weight loss, fever and chills. HEENT: Denies changes in vision and hearing. Respiratory: Denies shortness of breath and cough Cardiovascular: Denies chest discomfort or palpitations GI: Denies abdominal pain, nausea, vomiting and diarrhea. : Denies dysuria and urinary frequency. Musculoskeletal: Reports moderate to severe pain in the left shoulder with inability of abduction or any active movement at this time. Denies myalgias and joint pain Skin: Denies rash and pruritus. Neurological: Denies dizziness, headache, vision or hearing problems Physical Examination General: Patient alert and oriented in person, place and time. Patient following commands. HEENT: Normocephalic, atraumatic, moist mucous membranes Respiratory/pulmonary: Clear lungs bilaterally, no associated crackles or wheezes. Cardiovascular: Normal regular heart sounds S1 and S2 with no associated murmurs Abdomen: Abdomen nondistended, there is no pain to palpation in any of the abdominal quadrants, no palpable masses. Extremities: There is severe left shoulder pain with inability of actively moving left shoulder. There is no peripheral edema present at the lower extremities. Peripheral Pulses: 3+ Radial (R). 3+ Radial (L). 3+ Dorsalis pedis (R). 3+ Dorsalis pedis(L) Skin: No rashes or pruritus, there is no sacral edema present at this time. Neurological: Intact cranial nerves with no focal neurologic deficits Consults/Reason for consult orthopaedic for left shoulder evaluation Neurology for seizure disorder Operations or Procedures Examination: HWOCT CLINICAL INDICATION: sz COMPARISON: None. CONTRAST USED: None. TECHNIQUE: The examination was performed obtaining 5 mm slices without contrast. CT scan done according to ALARA (As Low as Reasonably Achievable). Multiplanar reconstructions were obtained. FINDINGS: SUPRATENTORIAL BRAIN: Cerebral Hemispheres: There is no midline shift or mass effect, intra or extra- axial fluid collections or hemorrhage. Periventricular White Matter/Basal Ganglia: No abnormal areas of altered attenuation within the periventricular white matter or basal ganglia. POSTERIOR FOSSA: The brainstem is normal and the visualized cerebellar hemispheres are unremarkable. VENTRICULAR SYSTEM: The ventricular system is normal in size. There is no evidence of hydrocephalus or transependymal flow of cerebrospinal fluid. SKULL BASE AND PARASELLAR REGION: The skull base is normal with no parasellar masses or abnormalities identified. CALVARIUM AND SCALP REGION: No abnormality is seen. PARANASAL SINUSES: Mild S-shaped deviation of the nasal septum. Patchy mucosal thickening in the left maxillary sinus measuring up to 5 mm. No significant inflammatory changes are identified in the paranasal sinuses. IMPRESSION: 1. No evidence of calvarial fracture or extra-axial collection. 2. No acute intracranial abnormality. No evidence of acute infarct or intracranial hemorrhage. 3. Wade-white matter differentiation is well maintained. 4. S-shaped deviation of the nasal septum. Mucosal thickening in the left maxillary sinus, measuring up to 5 mm. Examination: LST CLINICAL INDICATION:fall COMPARISON: None. CONTRAST USED: None. TECHNIQUE: A plain CT study of the left upper extremity is performed. Multiplanar reconstructions were obtained. CT scan WAS done according to ALARA (As Low As Reasonably Achievable). 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 There is flattening of the glenoid fossa and humeral head. A few periarticular osteophytes are seen arising from the glenoid and humeral head. No evidence of erosion/destruction. There is no joint effusion. There is no evidence of subluxation or dislocation. The visualized soft tissues appear unremarkable. No obvious collection is seen. IMPRESSION: 1. 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 2. Flattening of the glenoid fossa and humeral head. 3. A few periarticular osteophytes are seen arising from the glenoid and humeral head, suggestive of degenerative osteoarthritis. CLINICAL INDICATION: FALL INJURY TECHNIQUE: XY L SHOULDER 2+ VIEW XRAY Comparison: XY L SHOULDER 2+ VIEW XRAY on DOS: 07/12/24, XY L SHOULDER 2+ VIEW XRAY on DOS: 07/11/24, XY L SHOULDER 2+ VIEW XRAY on DOS: 07/06/24 FINDINGS/IMPRESSION: There is no evidence of acute fracture or dislocation. Soft tissues are unremarkable. Surgical screw fixation of the glenoid. Condition at Discharge: Undetermined Final Diagnosis/Problems List Seizure disorder/epilepsy Left shoulder dislocation, already repositioned Discharge Disposition: AMA Discharge Statement: "Patient was advised to return to the ER or call 911 if any headaches, dizziness, shortness of breath, chest pain, abdominal pain, bleeding, fevers, or worsening of medical condition. Patient was counseled about treatment plan, medications, possible side effects, patientverbalized understanding. All questions were answered to the best of my ability. This discharge took greater then 30 minutes in planning, reviewing documentation, counseling the patient, and discussing with other team members." ASSESSMENT ASSESSMENT Assessment Date of Service: Aug 26, 2024 Billing Provider: JACKELYN SANCHEZ MD Common Visit Codes: 30300-AGG/OBS DISCH DAY >30min CHANDRAKANT FORDE RESIDENT Aug 26, 2024 17:57 JACKELYN SANCHEZ MD Aug 27, 2024 20:26
[2024-08-26] MEDS ORDERED: ZONISAMIDE 300 MG PO SCH (22:00)
[2024-08-26] MEDS ORDERED: clonazePAM 0.5 MG TAB PO SCH (22:00)
== END 2024-08-26 16:30 | disposition left against medical advice (07) | DRG 53 ==
LOC: ER 01:13 → OVERFLOW 05:20
PROVIDERS: ADMIT Internal Medicine Geriatric Medicine; ATTEND Internal Medicine Geriatric Medicine
DX: G40.409 Other generalized epilepsy and epileptic syndromes, not intractable, without status epilepticus (principal); F17.210 Nicotine dependence, cigarettes, uncomplicated; J32.9 Chronic sinusitis, unspecified; Z53.29 Procedure and treatment not carried out because of patient's decision for other reasons
CPT/HCPCS: 36415; 70450; 73030; 73200; 80053; 80307; 80320; 81001; 85025; 96365; G0378; J1885; J2405

== ENCOUNTER 2024-11-20 05:17 | Inpatient (IN) | payer MEDICAID ==
[~2024-11-20] VITALS: Ht 177.8 cm; Wt 79.1 kg
[2024-11-20 05:45] VITALS: PULSE 96; RESP 20; O2SAT 96
[2024-11-20] MEDS: HYDROMORPHONE HCL 1 MG/ML INJ IV ONE (06:45)
[2024-11-20] MEDS: ONDANSETRON HCL 4 MG/2 ML VIAL IV ONE (06:46)
--- NOTE | 2024-11-20 06:47 | ED.PDOC ---
Musculoskeletal HPI Comments 24-year-old male with PMHx Seizures presents with a chief complaint of left shoulder dislocation s/p fall at home. Patient states that x 45 minutes ago he had a seizure at home and woke up on the ground on his left shoulder. Patient reports that his left shoulder is dislocated as it has happened before. Patient reports that he has had surgery on his left shoulder due to a rotator cuff from dislocation. Patient has no oral trauma and is not postictal. Patient has a left deformity to his left shoulder. Chief Complaint: Fall Injury Time Seen by MD: 06:35 Primary Care Provider: IE Reviewed Notes: Medications, Allergies Allergies: Coded Allergies: NO KNOWN ALLERGIES (Unverified , 04/04/10) Home Meds Active Scripts Divalproex Sodium (Depakote Er) 500 Mg Tab, 1 TAB PO BID, #60 TAB 2 Refills Prov:JACKELYN SANCHEZ MD 07/13/24 Levetiracetam (Keppra) 1,000 Mg Tab, 1 TAB PO BID, #60 TAB 5 Refills Prov:JACKELYN SANCHEZ MD 07/13/24 Hydrocodone-Acetaminophen (Hydrocodone Bitartrate/AC 5-325 mg) 1 Tab Tab, 1 TAB PO Q6HPRN PRN, #20 TAB Prov:GATITO VENTURA PAC 07/11/24 Ibuprofen Micronized (Ibuprofen) 800 Mg Tab, 800 MG PO Q8HPRN PRN, #20 TAB Prov:GATITO VENTURA PAC 07/11/24 Oxycodone W/ Acetaminophen (Percocet 5/325MG) 1 Tab Tb, 2 TAB PO QID for 5 Days, #40 TAB Prov:JEANNIE MERCHANT NP 07/08/24 Levetiracetam (Keppra) 500 Mg Tab, 500 MG PO BID, #30 MG Prov:CHARISSE HILLS MD 04/18/23 Reported Medications Levetiracetam (Levetiracetam) 1,000 Mg Tab, 1.5 TAB PO BID 07/05/24 Divalproex Sodium (Divalproex Sodium Dr) 500 Mg Tab, 1 TAB PO BID 07/05/24 Trazodone Hcl (Trazodone Hcl) 50 Mg Tab, 50 MG PO HS, TAB 11/10/17 Clonazepam (KlonoPIN TABLET) 0.5 Mg Tb, 1 MG PO HS 11/10/17 Zonisamide (Zonisamide) 100 Mg Cap, 300 MG PO HS 10/01/17 Information Source: Patient Mode of Arrival: Ambulatory Location: Left Extremity Location: Shoulder Timing: Hours Prehospital treatment: None Severity: Moderate Able to Move Extremity: No Bear Weight: No Pain: Severe Hand Dominance: Right Mechanism: Blunt Trauma Circumstances: Fall Onset of Symptoms: After Trauma Symptoms: Pain DVT Risk Factors: NONE Last Tetanus: Unknown History of: Shoulder Dislocation, Shoulder Operation Associated signs and symptoms: Shoulder pain Past Medical History PAST MEDICAL HISTORY: Seizures Surgical History: Denies all surgeries Family History Family History: Unknown Social History Smoker: Cigarettes Alcohol: Occasionally Drugs: Marijuana Lives In: Home Constitutional: denies: chills, diaphoresis, fatigue, fever, malaise, sweats, weakness, others EENTM: denies: blurred vision, double vision, ear bleeding, ear discharge, ear drainage, ear pain, ear ringing, eye pain, eye redness, hearing loss, mouth pain, mouth swelling, nasal discharge, nose bleeding, nose congestion, nose pain, photophobia, tearing, throat pain, throat swelling, voice changes, others Respiratory: denies: cough, hemoptysis, orthopnea, SOB at rest, shortness of breath, SOB with excertion, stridor, wheezing, others Cardiovascular: denies: chest pain, dizzy spells, diaphoresis, Dyspnea on exertion, edema, irregular heart beat, left arm pain, lightheadedness, palpitations, PND, syncope, others Gastrointestinal: denies: abdomen distended, abdominal pain, blood streaked bowels, constipated, diarrhea, dysphagia, difficulty swallowing, hematemesis, melena, nausea, poor appetite, poor fluid intake, rectal bleeding, rectal pain, vomiting, others Genitourinary: denies: burning, dysuria, flank pain, frequency, hematuria, incontinence, penile discharge, penile sore, pain, testicle pain, testicle swelling, urgency, others Neurological: denies: dizziness, fainting, headache, left sided numbness, left sided weakness, numbness, paresthesia, pre-existing deficit, right sided numbness, right sided weakness, seizure, speech problems, tingling, tremors, weakness, others Musculoskeletal: reports: joint pain, muscle pain; denies: back pain, gout, joint swelling, muscle stiffness, neck pain, others Integumetry: denies: bruises, change in color, change in hair/nails, dryness, laceration, lesions, lumps, rash, wounds, others Allergic/Immunocompromised: denies: Difficulty Healing, Frequent Infections, Hives, Itching, others Hematologic/Lymphatic: denies: anemia, blood clots, easy bleeding, easy bruising, swollen glands, others Endocrine: denies: excessive hunger, excessive sweating, excessive thirst, excessive urination, flushing, intolerance to cold, intolerance to heat, unexplained weight gain, unexplained weight loss, others Psychiatric: denies: anxiety, bipolar disorder, depression, hopeless, panic disorder, schizophrenia, sleepless, suicidal, others All Other Systems: Reviewed and Negative Physical Exam General Appearance: Moderate Distress, Normal HEENT: Normal ENT Inspection, Pharynx Normal, TMs Normal Neck: Full Range of Motion, Non-Tender, Normal, Normal Inspection Respiratory: Chest Non-Tender, Lungs Clear, No Accessory Muscle Use, No Respiratory Distress, Normal Breath Sounds Cardiovascular: No Edema, No JVD, No Murmur, No Gallop, Normal Peripheral Pulses, Regular Rate/Rhythm Breast Exam: Deferred Gastrointestinal: No Organomegaly, Non Tender, No Pulsatile Mass, Normal Bowel Sounds, Soft Genitalia: Deferred Pelvic: Deferred Rectal: Deferred Extremities: Decreased range of motion, Tender, Other (LEFT SHOULDER DEFORMITY CONSISTENT WITH DISLOCATION, numbness tingling to the 1st and 2nd digit of the left arm) Neurologic: Alert, business banker II-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 Was a procedure done?: No Differential Diagnosis EXT Differential Diagnosis: Fracture, Sprain, Dislocation, Contusion, Strain, Neurovascular injury X-Ray, Labs, Meds, VS Vital Signs Date Time Temp Pulse Resp B/P (MAP) Pulse Ox O2 Delivery O2 Flow Rate FiO2 11/20/24 08:09 95 13 106/81 11/20/24 08:00 78 11/20/24 07:30 95 13 94 Room Air* 0 21 11/20/24 07:30 98.0 95 13 106/81 (89) 94 98.0 11/20/24 07:30 95 13 106/81 11/20/24 06:45 96 20 128/72 11/20/24 05:53 97.7 101 20 114/67 (83) 92 11/20/24 05:45 98.6 96 20 128/72 (90) 95 98.6 11/20/24 05:45 96 20 96 Room Air* 0 21 Lab Test 11/20/24 07:00 Range/Units White Blood Count 7.4 4.4-10.8 10^3/uL Red Blood Count 4.30 L 4.5-5.90 10^6/uL Hemoglobin 13.2 L 13.5-17.5 g/dL Hematocrit 39.1 L 41.0-53.0 % Mean Corpuscular Volume 91.0 80.0-100.0 fL Mean Corpuscular Hemoglobin 30.6 28.0-32.0 pg Mean Corpuscular Hemoglobin Concent 33.6 32.0-36.0 g/dL Red Cell Distribution Width 14.1 11.8-14.3 % Platelet Count 254 140-450 10^3/uL Mean Platelet Volume 8.5 6.9-10.8 fL Neutrophils (%) (Auto) 72.3 37.0-80.0 % Lymphocytes (%) (Auto) 18.5 10.0-50.0 % Monocytes (%) (Auto) 8.7 0.0-12.0 % Eosinophils (%) (Auto) 0.1 0.0-7.0 % Basophils (%) (Auto) 0.4 0.0-2.0 % Neutrophils # (Auto) 5.4 1.6-8.6 10 ^3/uL Lymphocytes # (Auto) 1.4 0.4-5.4 10 ^3/uL Monocytes # (Auto) 0.6 0-1.3 10 ^3/uL Eosinophils # (Auto) 0 0-0.8 10 ^3/uL Basophils # (Auto) 0 0-0.2 10 ^3/uL Nucleated Red Blood Cells 0.1 % Sodium Level 135 L 136-145 mmol/L Potassium Level 4.3 3.5-5.1 mmol/L Chloride Level 103 98-107 mmol/L Carbon Dioxide Level 24 20-31 mmol/L Anion Gap 8 5-15 Blood Urea Nitrogen 12 9-23 mg/dL Creatinine 0.84 0.700-1.30 mg/dL Glomerular Filtration Rate Calc 123 >90 mL/min BUN/Creatinine Ratio 14.3 10.0-20.0 Serum Glucose 105 74-106 mg/dL Calcium Level 9.7 8.7-10.4 mg/dL Current Medications Medications (Trade) Dose Ordered Sig/Anuj Route Start Time Stop Time Status Last Admin Hydromorphone HCl (Dilaudid Innjection) 1 mg ONCE ONCE IV 11/20/24 06:45 11/20/24 06:47 DC 11/20/24 06:45 Ondansetron HCl (Zofran) 4 mg ONCE ONCE IV 11/20/24 06:45 11/20/24 06:47 DC 11/20/24 06:46 Hydromorphone HCl (Dilaudid Injection) 1 mg ONCE ONCE IV 11/20/24 07:15 11/20/24 07:16 DC 11/20/24 08:09 PATIENT: NEW OLMSTEAD ACCT: [id number] UNIT: [id number] : 2000 LOC: ER ROOM / BED: / AGE / SEX: 24 / M ADM STATUS: REG ER SERVICE [id number] ORDERING PHYSICIAN: JULIAN HEARD MD PROCEDURE(s): LSHD2 - L SHOULDER 2+ VIEW XRAY REASON: POSIBLE DISLOCATIO ORDER NUMBER(s): [id number], ACCESSION NUMBER(s): [id number] EXAM: XR Left Shoulder Complete, 2 or More Views CLINICAL INDICATION: POSIBLE DISLOCATIO TECHNIQUE: Two or more views of the left shoulder. COMPARISON: XY L SHOULDER 2+ VIEW XRAY on DOS: 08/26/24, XY L SHOULDER 2+ VIEW XRAY on DOS: 07/12/24, XY L SHOULDER 2+ VIEW XRAY on DOS: 07/11/24, XY L SHOULDER 2+ VIEW XRAY on DOS: 07/06/24, XY L SHOULDER 2+ VIEW XRAY on DOS: 07/05/24 FINDINGS: BONES/JOINTS: Fixation screw to the humeral head. No dislocation. No acute fracture. SOFT TISSUES: Soft tissue swelling.. OTHER FINDINGS: . . IMPRESSION: No acute fracture. HS:Y ATED BY: JAGDEEP BYRD MD DICTATED DATE/TIME: 11/20/24702 SIGNED BY: JAGDEEP BYRD MD SIGNED DATE/TIME: 11/20/24702 24-year-old male presents here with left shoulder pain. He has a history of seizures and had a seizure this morning and subsequent injury to his left shoulder. Patient is unable to move his left shoulder at all. He is reporting numbness tingling to his thumb and 2nd digit. At this time x-rays have been done of the left shoulder however it does not demonstrate any dislocation or acute fracture demonstrates soft tissue swelling only. However given the patient is unable to move his arm at all and he is having significant pain I have contacted Orthopedic surgery Dr. Sloan Hale. Dr. Sloan Hale has reviewed the imaging studies and would like to take him for close reduction in the operating room. Blood work has been done in the patient which is largely unremarkable including a normal CBC and a normal CMP. At this time patient is made NPO. I have treated patient's pain with IV medications. I have started the patient on Keppra IV to prevent further seasons. Hospitalist team has been contacted for admission postop. Time of 1ST Reevaluation: 07:05 Reevaluation 1ST: Unchanged Time of 2ND Reevaluation: 08:56 Reevaluation 2ND: Unchanged Patient Education/Counseling: Diagnosis, Treatment, Prognosis Family Education/Counseling: Diagnosis, Treatment, Prognosis Departure 1 Departure Time of Disposition: 09:05 Impression: Primary Impression: Dislocation of left shoulder joint Qualified Codes: S43.005D - Unspecified dislocation of left shoulder joint, subsequent encounter Additional Impression: Seizures Disposition: 09 ADMITTED INPATIENT Condition: Guarded Critical Care Note Critical Care Time?: No Stability Stability form required: No I personally scribed for NEGRO CHENG MD ([email or web address]) on 11/20/24 at 06:47. Electronically submitted by Vijay Renteria ([email or web address]). I personally scribed for NEGRO CHENG MD ([email or web address]) on 11/20/24 at 07:25. Electronically submitted by Vijay Renteria ([email or web address]). NEGRO CHENG MD Nov 20, 2024 06:47
--- NOTE | 2024-11-20 07:06 | DVH ---
EXAM: XR Left Shoulder Complete, 2 or More Views CLINICAL INDICATION: POSIBLE DISLOCATIO TECHNIQUE: Two or more views of the left shoulder. COMPARISON: XY L SHOULDER 2+ VIEW XRAY on DOS: 08/26/24, XY L SHOULDER 2+ VIEW XRAY on DOS: 07/12/24 , XY L SHOULDER 2+ VIEW XRAY on DOS: 07/11/24, XY L SHOULDER 2+ VIEW XRAY on DOS: 07/06/24, XY L SHOULD ER 2+ VIEW XRAY on DOS: 07/05/24 FINDINGS: BONES/JOINTS: Fixation screw to the humeral head. No dislocation. No acute fracture. SOFT TISSUES: Soft tissue swelling.. OTHER FINDINGS: . . IMPRESSION: No acute fracture. HS:Y
[2024-11-20 07:30] VITALS: PULSE 95; RESP 13; O2SAT 94
[2024-11-20 07:45] LABS: Basophils # (auto) 0 10 ^3/uL (0-0.2); Basophils % (auto) 0.4 % (0.0-2.0); Eosinophils # (auto) 0 10 ^3/uL (0-0.8); Eosinophils % (auto) 0.1 % (0.0-7.0); Hematocrit 39.1 % (41.0-53.0); Hemoglobin 13.2 g/dL (13.5-17.5); Lymphocytes # (auto) 1.4 10 ^3/uL (0.4-5.4); Lymphocytes % (auto) 18.5 % (10.0-50.0); Mean Corpuscular Hemoglobin 30.6 pg (28.0-32.0); Mean Corpuscular Hgb Conc. 33.6 g/dL (32.0-36.0); Monocytes # (auto) 0.6 10 ^3/uL (0-1.3); Monocytes % (auto) 8.7 % (0.0-12.0); Neutrophils # (auto) 5.4 10 ^3/uL (1.6-8.6); Neutrophils % (auto) 72.3 % (37.0-80.0); Nucleated Red Blood Cells % 0.1 %; Platelet Count (auto) 254 10^3/uL (140-450); Red Cell Distribution Width 14.1 % (11.8-14.3); White Blood Cell 7.4 10^3/uL (4.4-10.8)
[2024-11-20 07:51] LABS: Chloride 103 mmol/L (98-107); Potassium 4.3 mmol/L (3.5-5.1)
[2024-11-20 07:52] LABS: Anion Gap 8 (5-15); Calcium 9.7 mg/dL (8.7-10.4); Carbon Dioxide 24 mmol/L (20-31)
[2024-11-20 07:57] LABS: BUN/Creatinine Ratio 14.3 (10.0-20.0); Blood Urea Nitrogen 12 mg/dL (9-23); Glucose 105 mg/dL (74-106)
[2024-11-20 08:08] LABS: Sodium 135 mmol/L (136-145)
[2024-11-20] MEDS: HYDROmorphone HCL 2 MG/ML VL/or syr IV ONE ×2 (08:09→16:23)
[2024-11-20] MEDS: diphenhdrAMINE HCL 50 MG/1 ML VL IV ONE ×2 (09:07→17:32)
[2024-11-20 09:10] VITALS: PULSE 75; RESP 16; O2SAT 97
[2024-11-20] MEDS ORDERED: ACETAMINOPHEN 325 MG TAB PO PRN (09:30)
[2024-11-20] MEDS ORDERED: HYDROcodone-ACET 5/325MG TAB PO PRN (09:30)
[2024-11-20] MEDS ORDERED: GAB100C PO (09:53)
--- NOTE | 2024-11-20 09:57 | DVHHP2 ---
History of Present Illness Reason for Visit: Left shoulder pain status post seizure and fall History of Present Illness Michael Vazquez is a 24-year-old male with past medical history of left shoulder dislocation, ORIF, and seizures who presents to the ED with left shoulder pain status post fall and seizure at home x1 day. Patient reports that he was doing laundry then suddenly blacked out and woke up to EMS personnel, was called by his roommate and now in the ED for evaluation. Patient reports that his left shoulder pain is a 10/10 throbbing and constant. Patient reports that he is unable to move his left arm. Ortho doctor at the bedside and states there is no surgery to be done at [facility] will need to transfer to a higher level of care. Our patient wants to still be admitted for pain management per ortho doctor. Patient denies any chest pain, shortness of breath, nausea, vomiting, diarrhea, recent sick contacts, recent illnesses, dizziness, and headaches. Patient denies any recent sick contacts or drug use. REFERRAL SPECIALIST: Seizure Past Medical History Left Shoulder dislocation Past Surgical History: Other (Left ORIF) Family History: None Smoke: <1 pack per day ALCOHOL: occassional Drugs: Marijuana Lives: Roommate Domestic Violence: Neg Review of Systems Constitutional: No: Fever, Chills, Sweats, Weakness, Malaise, Other Eyes: No: Pain, Vision change, Conjunctivae inflammation, Eyelid inflammation, Other, Redness ENT: No: Ear pain, Ear discharge, Nose pain, Nose discharge, Nose congestion, Mouth pain, Mouth swelling, Throat pain, Throat swelling, Other Respiratory: No: Cough, Dry, Shortness of breath, SOB with excertion, Wheezing, Hemoptysis, Pleuritic Pain, Sputum, Wheezing, Other Cardiovascular: No: Chest Pain, Palpitations, Orthopnea, Paroxysmal Noc. Dyspnea, Edema, Lt Headedness, Other Gastrointestinal: No: Nausea, Vomiting, Abdominal Pain, Diarrhea, Constipation, Melena, Hematochezia, Other Genitourinary: No Dysuria, No Frequency, No Incontinence, No Hematuria, No Retention, No Other Musculoskeletal: shoulder pain; No: other, neck pain, arm pain, back pain, hand pain, leg pain, foot pain Skin: No: Rash, Lesions, Jaundice, Bruising, Other Neurological: Seizures; No: Weakness, Numbness, Incoordination, Change in speech, Confusion, Other Allergies: Coded Allergies: NO KNOWN ALLERGIES (Unverified , 04/04/10) Exam Vital Signs Vital Signs Date Time Temp Pulse Resp B/P (MAP) Pulse Ox O2 Delivery O2 Flow Rate FiO2 11/20/24 09:10 75 16 97 Room Air* 0 21 11/20/24 09:10 121/63 11/20/24 09:00 98.0 98.0 General Appearance: Alert, Oriented X3, Cooperative, No acute distress HEENT: Atraumatic, PERRLA, EOMI, Mucous membr. moist/pink Respiratory: Clear to auscultation, Normal air movement Cardiovascular: Normal S1, Normal S2, No murmurs Abdominal: Normal bowel sounds, Soft, No tenderness, No hepatospenomegaly, No masses Extremities: No tenderness/swelling Skin: No rashes, No breakdown Neuro: Normal gait, Normal speech, Normal tone, Sensation intact Psych/Mental Status: Mental status NL, Mood NL Labs/Xrays Labs Test 11/20/24 07:00 Range/Units White Blood Count 7.4 4.4-10.8 10^3/uL Red Blood Count 4.30 L 4.5-5.90 10^6/uL Hemoglobin 13.2 L 13.5-17.5 g/dL Hematocrit 39.1 L 41.0-53.0 % Mean Corpuscular Volume 91.0 80.0-100.0 fL Mean Corpuscular Hemoglobin 30.6 28.0-32.0 pg Mean Corpuscular Hemoglobin Concent 33.6 32.0-36.0 g/dL Red Cell Distribution Width 14.1 11.8-14.3 % Platelet Count 254 140-450 10^3/uL Mean Platelet Volume 8.5 6.9-10.8 fL Neutrophils (%) (Auto) 72.3 37.0-80.0 % Lymphocytes (%) (Auto) 18.5 10.0-50.0 % Monocytes (%) (Auto) 8.7 0.0-12.0 % Eosinophils (%) (Auto) 0.1 0.0-7.0 % Basophils (%) (Auto) 0.4 0.0-2.0 % Neutrophils # (Auto) 5.4 1.6-8.6 10 ^3/uL Lymphocytes # (Auto) 1.4 0.4-5.4 10 ^3/uL Monocytes # (Auto) 0.6 0-1.3 10 ^3/uL Eosinophils # (Auto) 0 0-0.8 10 ^3/uL Basophils # (Auto) 0 0-0.2 10 ^3/uL Nucleated Red Blood Cells 0.1 % Sodium Level 135 L 136-145 mmol/L Potassium Level 4.3 3.5-5.1 mmol/L Chloride Level 103 98-107 mmol/L Carbon Dioxide Level 24 20-31 mmol/L Anion Gap 8 5-15 Blood Urea Nitrogen 12 9-23 mg/dL Creatinine 0.84 0.700-1.30 mg/dL Glomerular Filtration Rate Calc 123 >90 mL/min BUN/Creatinine Ratio 14.3 10.0-20.0 Serum Glucose 105 74-106 mg/dL Calcium Level 9.7 8.7-10.4 mg/dL EXAM: CT Head Without Intravenous Contrast CLINICAL INDICATION: fall and hit head TECHNIQUE: Axial computed tomography images of the head/brain without intravenous contrast. This CT exam was performed using one or more of the following dose reduction techniques: automated exposure control, adjustment of the mA and/or kV according to patient size, and/or use of iterative reconstruction technique. RADIATION DOSE: CTDlvol= CTDIvol mGy, DLP= 971.88 mGy-cm COMPARISON: CT HEAD WITHOUT CONTRAST on DOS: 08/26/24, CT HEAD WITHOUT CONTRAST on DOS: 07/12/24, CT HEAD WITHOUT CONTRAST on DOS: 07/05/24, CT HEAD WITHOUT CONTRAST on DOS: 07/20/23, CT HEAD WITHOUT CONTRAST on DOS: 07/14/23 FINDINGS: BRAIN AND EXTRA-AXIAL SPACES: Unremarkable. No significant white matter disease. No acute intracranial hemorrhage, midline shift or mass effect. EXAM: XR Left Shoulder Complete, 2 or More Views CLINICAL INDICATION: POSIBLE DISLOCATIO TECHNIQUE: Two or more views of the left shoulder. COMPARISON: XY L SHOULDER 2+ VIEW XRAY on DOS: 08/26/24, XY L SHOULDER 2+ VIEW XRAY on DOS: 07/12/24, XY L SHOULDER 2+ VIEW XRAY on DOS: 07/11/24, XY L SHOULDER 2+ VIEW XRAY on DOS: 07/06/24, XY L SHOULDER 2+ VIEW XRAY on DOS: 07/05/24 FINDINGS: BONES/JOINTS: Fixation screw to the humeral head. No dislocation. No acute fracture. SOFT TISSUES: Soft tissue swelling.. OTHER FINDINGS: . . IMPRESSION: No acute fracture. BONES/JOINTS: Unremarkable. No acute fracture. SOFT TISSUES: Unremarkable. SINUSES: Unremarkable as visualized. No acute sinusitis. MASTOID AIR CELLS: Unremarkable as visualized. No mastoid effusion. OTHER FINDINGS: . IMPRESSION: 1. No acute intracranial hemorrhage, midline shift or mass effect. 2. If symptoms persist, further evaluation with MRI is recommended. 3. No significant change from the prior exam. Assessment/Plan Assessment/Plan Assessment/plan: Left shoulder dislocation Seizure Itchiness Labs Antiemetics Pain management Antihistamines X-ray left shoulder Seizure precautions CT head UDS UA A.m. lab IV Keppra Polysubstance abuse Counseled patient on cessation of polysubstance use FEN/PPx Diet Hep-Lock DVT prophylaxis-not indicated patient ambulating PUD prophylaxis-not indicated patient with no history of GI bleed or GERD Discussed plan of care with patient and nurse Home medications reconciled Admit to med surge Plan discussed with: Patient Date of Service: Nov 20, 2024 Billing Provider: XIAO ANDINO Common Visit Codes: [id number] INP/OBS CARE (HIGH) XIAO ANDINO Nov 20, 2024 09:57
[2024-11-20] MEDS: levETIRAcetam 500 MG TAB PO SCH (10:22)
--- NOTE | 2024-11-20 10:56 | DVHHP2 ---
History Allergies: Coded Allergies: NO KNOWN ALLERGIES (Unverified , 04/04/10) Chief Complaint: Left shoulder chronic recurrent dislocation, h/o seizures, not under control Present Illness(Onset/Duration This is a challenging orthopaedic case. I discussed with both Dr Leary and Radha. Patient has a history of epilepsy, poorly controlled, correlationwith cocaine abuse. Chronic recurrent shoulder dislocation. Surgery, Laterjet, procedrue of anterior instabilty by Dr Leary 2 mo ago, then recurrent post op dislocation. 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 Patient was [facility] to [facility] 2 days ago, then discharged with plan to follow up with Dr Leary. He presents today with persistent dislocation. Dr Leary recommends dc to home and follow up in his clinic, with possible transfer to higher level care for attempted revision stabilization surgery with bone graft. Concerning issue is continued cocaine use and subsequesnt siezures which increases risk of failure. Past Surgical History Dr Leary, Kirsty, 2 mo ago, with complete loss of articular cartilage seen adn post op seizure with recurrent dislocation Physical Exam Chest and Lungs CTA B Heart RRR neg MRG Abdomen NBS NT ND Extremities Left shoulder, deltoid depression consistent with anterior dislocation. Well healed anterior incision consistent with prior Laterjet procedure. ROM not assessed due to dislocation, NVI L wrist hand. Vital Signs Vital Signs Date Time Temp Pulse Resp B/P (MAP) Pulse Ox O2 Delivery O2 Flow Rate FiO2 11/20/24 09:10 75 16 97 Room Air* 0 21 11/20/24 09:10 121/63 11/20/24 09:00 98.0 98.0 Impressions/Description XR left shoulder anterior dislocation Discussed case with Dr Leary, see first prargraph of this note. 1) dc to home 2) follow up with Dr Leary, possible future CT left shoulder and possible revision stabilizaton surgery with bonegraft. 3) patient has my cell number in the event he should have difficutly contacting [facility] 4) patient to return to ER if he develops weakness, numbness left wrist/hand Plan dc to home follow up Dr Leary, see detailed discussion above KELTON LANGLEY MD Nov 20, 2024 10:56
--- NOTE | 2024-11-20 11:11 | DVH ---
EXAM: CT Head Without Intravenous Contrast CLINICAL INDICATION: fall and hit head TECHNIQUE: Axial computed tomography images of the head/brain without intravenous contrast. This CT exam was performed using one or more of the following dose reduction techniques: automated exposure control, adjustment of the mA and/or kV according to patient size, and/or use of iterative reconstru ction technique. RADIATION DOSE: CTDlvol= CTDIvol mGy, DLP= 971.88 mGy-cm COMPARISON: CT HEAD WITHOUT CONTRAST on DOS: 08/26/24, CT HEAD WITHOUT CONTRAST on DOS: 07/12/24, CT HEAD WITHOUT CONTRAST on DOS: 07/05/24, CT HEAD WITHOUT CONTRAST on DOS: 07/20/23, CT HEAD WITHOUT CONT RAST on DOS: 07/14/23 FINDINGS: BRAIN AND EXTRA-AXIAL SPACES: Unremarkable. No significant white matter disease. No acute intracra nial hemorrhage, midline shift or mass effect. BONES/JOINTS: Unremarkable. No acute fracture. SOFT TISSUES: Unremarkable. SINUSES: Unremarkable as visualized. No acute sinusitis. MASTOID AIR CELLS: Unremarkable as visualized. No mastoid effusion. OTHER FINDINGS: . IMPRESSION: 1. No acute intracranial hemorrhage, midline shift or mass effect. 2. If symptoms persist, further evaluation with MRI is recommended. 3. No significant change from the prior exam.
[2024-11-20] MEDS: MORPHINE SULFATE INJ 2 MG/ml SYRG IV PRN (13:33)
[2024-11-20] MEDS ORDERED: levETIRAcetam 500 mg/100ml 100 ML IV SCH ×2 (15:00→22:00)
[2024-11-20] MEDS ORDERED: HYDROmorphone HCL 2 MG/ML VL/or syr IV ONE (15:00)
[2024-11-20] MEDS: levETIRAcetam 1000 mg/100ml 100 ML IV ONE (16:22)
[2024-11-20] MEDS: ONDANSETRON HCL 4 MG/2 ML VIAL IV PRN (18:58)
[2024-11-20] MEDS: Zonisamide 300 MG PO SCH (22:00)
[2024-11-20 22:07] VITALS: PULSE 86; RESP 16; O2SAT 96
[2024-11-20] MEDS: traZODone HCL 50 MG TAB PO SCH (22:07)
[2024-11-20] MEDS: levETIRAcetam 1000 mg/100ml 100 ML IV SCH (22:08)
[2024-11-20] MEDS: clonazePAM 0.5 MG TAB PO SCH (22:08)
[2024-11-21] VITALS (7 sets, daily range): BP systolic 92–142; BP diastolic 50–89; PULSE 54–77; RESP 12–20; TEMP 97.6–98.5; O2SAT 94–98
[2024-11-21 06:40] LABS: Basophils # (auto) 0 10 ^3/uL (0-0.2); Basophils % (auto) 1.1 % (0.0-2.0); Eosinophils # (auto) 0.2 10 ^3/uL (0-0.8); Eosinophils % (auto) 4.5 % (0.0-7.0); Hematocrit 35.6 % (41.0-53.0); Lymphocytes # (auto) 1.6 10 ^3/uL (0.4-5.4); Lymphocytes % (auto) 36.8 % (10.0-50.0); Mean Corpuscular Hemoglobin 30.4 pg (28.0-32.0); Mean Corpuscular Hgb Conc. 33.7 g/dL (32.0-36.0); Mean Corpuscular Volume 90.1 fL (80.0-100.0); Monocytes # (auto) 0.4 10 ^3/uL (0-1.3); Monocytes % (auto) 8.1 % (0.0-12.0); Neutrophils # (auto) 2.2 10 ^3/uL (1.6-8.6); Neutrophils % (auto) 49.5 % (37.0-80.0); Nucleated Red Blood Cells % 0.1 %; Platelet Count (auto) 213 10^3/uL (140-450); Red Blood Cells 3.96 10^6/uL (4.5-5.90); Red Cell Distribution Width 14.1 % (11.8-14.3); White Blood Cell 4.4 10^3/uL (4.4-10.8)
[2024-11-21 06:57] LABS: Alkaline Phosphatase 76 U/L (46-116); Anion Gap 8 (5-15); Aspartate Aminotransferase 27 U/L (13-40); BUN/Creatinine Ratio 19.4 (10.0-20.0); Blood Urea Nitrogen 18 mg/dL (9-23); Calcium 9.3 mg/dL (8.7-10.4); Carbon Dioxide 25 mmol/L (20-31); Chloride 105 mmol/L (98-107); Glucose 93 mg/dL (74-106); Potassium 4.5 mmol/L (3.5-5.1); Sodium 138 mmol/L (136-145)
[2024-11-21 06:58] LABS: Total Protein 5.9 g/dL (5.7-8.2)
[2024-11-21] MEDS: LORazepam 2MG/ML-1ML VIAL IV ONE (07:04)
[2024-11-21 07:07] LABS: Alanine Aminotransferase 47 U/L (7-40)
[2024-11-21 07:11] LABS: Bilirubin, Total 0.3 mg/dL (0.2-1.0)
[2024-11-21] MEDS: diphenhdrAMINE HCL 50 MG/1 ML VL IV PRN (09:20)
[2024-11-21] MEDS: HYDROmorphone HCL 2 MG/ML VL/or syr IV ONE (15:02)
--- NOTE | 2024-11-21 15:54 | DVHPN2 ---
Reviewed: Care Plan, H&P, Labs, Medications, Previous Orders Changes from previous H/P or p: No Changes General: Per HPI Eyes: No Pain, No Vision change, No Conjunctivae inflammation, No Eyelid inflammation, No Other, No Redness ENT: No Ear pain, No Ear discharge, No Nose pain, No Nose discharge, No Nose congestion, No Mouth pain, No Mouth swelling, No Throat pain, No Throat swelling, No Other Cardiovascular: No Chest Pain, No Palpitations, No Orthopnea, No Paroxysmal Noc. Dyspnea, No Edema, No Lt Headedness, No Other Respiratory: No Cough, No Dry, No Shortness of breath, No SOB with excertion, No Wheezing, No Hemoptysis, No Pleuritic Pain, No Sputum, No Other Gastrointestinal: No Nausea, No Vomiting, No Abdominal Pain, No Diarrhea, No Constipation, No Melena, No Hematochezia, No Other Genitourinary: No Dysuria, No Frequency, No Incontinence, No Hematuria, No Retention, No Other Musculoskeletal: No other, No neck pain; shoulder pain; No arm pain, No back pain, No hand pain, No leg pain, No foot pain Skin: No Rash, No Lesions, No Jaundice, No Bruising, No Other Objective Vitals Vital Signs Date Time Temp Pulse Resp B/P (MAP) Pulse Ox O2 Delivery O2 Flow Rate FiO2 11/21/24 15:02 77 16 109/72 11/21/24 12:00 98.5 97 98.5 11/21/24 09:10 Room Air* 0 21 Intake/Output Intake and Output 11/21/24 07:00 Intake Total 200 ml Balance 200 ml Intake IV Total 200 ml General Appearance: Alert, Oriented X3 Lungs: Clear to auscultation Cardiovascular: Regular rate, Normal S1, Normal S2 Abdomen: Normal bowel sounds, Soft Medications Current Medications Medications Dose Ordered Sig/Anuj Route Start Time Stop Time Status Last Admin Dose Admin Acetaminophen/ Hydrocodone Bitart 1 tab Q4HP PRN PO 11/20/24 09:30 Ondansetron HCl 4 mg Q4HP PRN IV 11/20/24 09:30 11/20/24 18:58 4 MG Acetaminophen 650 mg Q6HP PRN PO 11/20/24 09:30 Morphine Sulfate 2 mg Q4HPRN PRN IV 11/20/24 09:30 11/21/24 06:37 2 MG Clonazepam 1 mg HS PO 11/20/24 22:00 11/20/24 22:08 1 MG Trazodone HCl 50 mg HS PO 11/20/24 22:00 11/20/24 22:07 50 MG Divalproex Sodium 500 mg BID PO 11/20/24 10:00 11/21/24 09:56 500 MG Patient Own Medication 300 mg HS PO 11/20/24 22:00 Levetiracetam 100 ml @ 400 mls/hr BID IV 11/20/24 22:00 11/21/24 09:56 400 MLS/HR Diphenhydramine HCl 25 mg Q4HP PRN IV 11/21/24 02:45 11/21/24 15:20 25 MG Laboratory Results Laboratory Tests 11/21/24 06:06 Chemistry Test 11/21/24 06:06 Albumin 4.0 g/dL (3.2-4.8) Calcium Level 9.3 mg/dL (8.7-10.4) Total Protein 5.9 g/dL (5.7-8.2) LFT Test 11/21/24 06:06 Alanine Aminotransferase (ALT) 47 U/L (7-40) H Alkaline Phosphatase 76 U/L (46-116) Aspartate Amino Transferase (AST) 27 U/L (13-40) Total Bilirubin 0.3 mg/dL (0.2-1.0) Labs and/or images reviewed: Labs reviewed by me, Image(s) reviewed by me Assessment/Plan Assessment/Plan Michael Vazquez is a 24-year-old male with past medical history of left shoulder dislocation, ORIF, and seizures who presents to the ED with left shoulder pain status post fall and seizure at home x1 day. Patient reports that he was doing laundry then suddenly blacked out and woke up to EMS personnel, was called by his roommate and now in the ED for evaluation. Patient reports that his left shoulder pain is a 10/10 throbbing and constant. Patient reports that he is unable to move his left arm. Ortho doctor at the bedside and states there is no surgery to be done at [facility] will need to transfer to a higher level of care. Our patient wants to still be admitted for pain management per ortho doctor. left shoulder dislocation left should pain intractable pain pt has a lot of pain and states that he would like to be transferred to [facility] Plan discussed with: Patient Date of Service: Nov 21, 2024 Billing Provider: TWYLA HARTLEY DO Common Visit Codes: [id number] INP/OBS CARE(HIGH) TWYLA HARTLEY DO Nov 21, 2024 15:53
[2024-11-22] VITALS (7 sets, daily range): BP systolic 100–116; BP diastolic 48–72; PULSE 61–77; RESP 17–20; TEMP 36.8; O2SAT 93–96
[2024-11-22 12:16] LABS: Urine Bacteria None Seen /hpf (None Seen)
[2024-11-22 12:35] LABS: Urine Blood Negative /uL (Negative); Urine Clarity Clear (Clear); Urine Color Light-Yellow (Yellow); Urine Protein, UAD Negative (Negative); Urine Specific Gravity 1.015 (1.001-1.035); Urine Squamous Epithelial Cell None Seen /hpf (<5); Urine Urobilinogen Normal (Negative); Urine WBC 2 /HPF (0-3); Urine pH 6.5 (5.0-9.0)
[2024-11-22 12:45] LABS: Barbiturate Scree,Urine Neg (NEGATIVE); Benzodiazephine Screen, Urine Neg (NEGATIVE)
[2024-11-22 12:46] LABS: Cannabinoid Screen, Urine Neg (NEGATIVE); Opiate Scree,Urine Neg (NEGATIVE)
[2024-11-22 12:54] LABS: Amphetamine Screen, Urine Neg (NEGATIVE); Cocaine Screen, Urine Neg (NEGATIVE); Phencyclidine Screen, Urine Neg (NEGATIVE)
[2024-11-22] MEDS: HYDROmorphone HCL 2 MG/ML VL/or syr IV PRN (14:33)
--- NOTE | 2024-11-22 15:34 | DVHDS2 ---
Discharge Summary Date of Admission Nov 20, 2024 at 09:29 Date of Discharge: Nov 22, 2024 Labs/Diagnostic Data: Laboratory Results Test 11/22/24 11:50 11/21/24 06:06 Urine Color Light-yellow (Yellow) Urine Clarity Clear (Clear) Urine pH 6.5 (5.0-9.0) Urine Specific [place] 1.015 (1.001-1.035) Urine Protein Negative (Negative) Urine Ketones Trace (Negative) Urine Blood Negative /uL (Negative) Urine Nitrite Negative (Negative) Urine Bilirubin Negative (Negative) Urine Urobilinogen Normal mg/dL (Negative) Urine Leukocyte Esterase Negative /uL (Negative) Urine RBC None seen /hpf (0 - 3) Urine Microscopic WBC 2 /HPF (0-3) Urine Squamous Epithelial Cells None seen /hpf (<5) Urine Bacteria None seen /hpf (None Seen) Urine Glucose Normal mg/dL (Normal) Urine Opiates Screen Neg (NEGATIVE) Urine Fentanyl Screen Neg (NEGATIVE) Urine Barbiturates Screen Neg (NEGATIVE) Urine Phencyclidine Screen Neg (NEGATIVE) Urine Amphetamines Screen Neg (NEGATIVE) Urine Benzodiazepines Screen Neg (NEGATIVE) Urine Cocaine Screen Neg (NEGATIVE) Urine Cannabinoids Screen Neg (NEGATIVE) White Blood Count 4.4 10^3/uL (4.4-10.8) Red Blood Count 3.96 10^6/uL (4.5-5.90) Hemoglobin 12.0 g/dL (13.5-17.5) Hematocrit 35.6 % (41.0-53.0) Mean Corpuscular Volume 90.1 fL (80.0-100.0) Mean Corpuscular Hemoglobin 30.4 pg (28.0-32.0) Mean Corpuscular Hemoglobin Concent 33.7 g/dL (32.0-36.0) Red Cell Distribution Width 14.1 % (11.8-14.3) Platelet Count 213 10^3/uL (140-450) Mean Platelet Volume 8.1 fL (6.9-10.8) Neutrophils (%) (Auto) 49.5 % (37.0-80.0) Lymphocytes (%) (Auto) 36.8 % (10.0-50.0) Monocytes (%) (Auto) 8.1 % (0.0-12.0) Eosinophils (%) (Auto) 4.5 % (0.0-7.0) Basophils (%) (Auto) 1.1 % (0.0-2.0) Neutrophils # (Auto) 2.2 10 ^3/uL (1.6-8.6) Lymphocytes # (Auto) 1.6 10 ^3/uL (0.4-5.4) Monocytes # (Auto) 0.4 10 ^3/uL (0-1.3) Eosinophils # (Auto) 0.2 10 ^3/uL (0-0.8) Basophils # (Auto) 0 10 ^3/uL (0-0.2) Nucleated Red Blood Cells 0.1 % Sodium Level 138 mmol/L (136-145) Potassium Level 4.5 mmol/L (3.5-5.1) Chloride Level 105 mmol/L (98-107) Carbon Dioxide Level 25 mmol/L (20-31) Anion Gap 8 (5-15) Blood Urea Nitrogen 18 mg/dL (9-23) Creatinine 0.93 mg/dL (0.700-1.30) Glomerular Filtration Rate Calc 116 mL/min (>90) BUN/Creatinine Ratio 19.4 (10.0-20.0) Serum Glucose 93 mg/dL (74-106) Calcium Level 9.3 mg/dL (8.7-10.4) Total Bilirubin 0.3 mg/dL (0.2-1.0) Aspartate Amino Transferase (AST) 27 U/L (13-40) Alanine Aminotransferase (ALT) 47 U/L (7-40) Alkaline Phosphatase 76 U/L (46-116) Total Protein 5.9 g/dL (5.7-8.2) Albumin 4.0 g/dL (3.2-4.8) Other Laboratory Tests 11/21/24 06:06 Brief Hx & Hospital Course: HPI:24-year-old male with past medical history of left shoulder dislocation, ORIF, and seizures who presents to the ED with left shoulder pain status post fall and seizure at home x1 day. Patient reports that he was doing laundry then suddenly blacked out and woke up to EMS personnel, was called by his roommate and now in the ED for evaluation. Patient reports that his left shoulder pain is a 10/10 throbbing and constant. Patient reports that he is unable to move his left arm. Hospitalization course: On admit patient presents with pain on left shoulder. 11/20 shoulder x-ray left side shows no acute fracture. Patient had fall at home with possible head trauma, CT head done, no acute intracranial findings. Orthopedics consulted. Orthopedics adjust no inpatient emergent intervention possible. HL OC was discussed with [facility] and [facility] and plan made by Orthopedic teams to evaluate and manage patient to outpatient care. Vitals are stable plan made for outpatient management as per plan below. Discharge diagnosis: Left shoulder, deltoid depression consistent with anterior dislocation.;prior Laterjet procedure; acute on chronic; history of seizures, controlled; anemia, mild, chronic stable; hyponatremia, mild, resolved; Discharge plan: -continue home pain meds as needed for pain control . Short course refill given. -Restricted movement with sling for left hand/shoulder -Close follow up with Orthopedics for left shoulder dislocation -continue other home medications as prior. Continue seizure medications. Visitation and planning required 35 minutes Condition at Discharge: Fair Final Diagnosis/Problems List Left shoulder, deltoid depression consistent with anterior dislocation.;prior Laterjet procedure; acute on chronic; history of seizures, controlled; anemia, mild, chronic stable; hyponatremia, mild, resolved; Discharge Disposition: Home Discharge Instruct/Medications Diet: Regular Activity: See Comment Activity comment: Movement restriction,/ brace for left shoulder. Follow Up/Referral: PCP, Orthopedics Medications: As below Discharge Statement: "Patient was advised to return to the ER or call 911 if any headaches, dizziness, shortness of breath, chest pain, abdominal pain, bleeding, fevers, or worsening of medical condition. Patient was counseled about treatment plan, medications, possible side effects, patientverbalized understanding. All questions were answered to the best of my ability. This discharge took greater then 30 minutes in planning, reviewing documentation, counseling the patient, and discussing with other team members." ASSESSMENT ASSESSMENT Assessment Left shoulder, deltoid depression consistent with anterior dislocation.;prior Laterjet procedure; acute on chronic; history of seizures, controlled; anemia, mild, chronic stable; hyponatremia, mild, resolved; Date of Service: Nov 22, 2024 Billing Provider: NELLA POST MD Common Visit Codes: [id number] DISCH DAY >30min NELLA POST MD Nov 22, 2024 15:34
[2024-11-22] MEDS ORDERED: PERCOT PO (15:35)
== END 2024-11-22 17:32 | disposition home or self-care (01) | DRG 342 ==
LOC: ER 05:17 → OVERFLOW 09:29 → WEST WING 09:53
PROVIDERS: ATTEND Student in an Organized Health Care Education/Training Program
DX: S43.085A Other dislocation of left shoulder joint, initial encounter (principal); E87.1 Hypo-osmolality and hyponatremia; D64.9 Anemia, unspecified; F14.90 Cocaine use, unspecified, uncomplicated; F17.210 Nicotine dependence, cigarettes, uncomplicated; G40.909 Epilepsy, unspecified, not intractable, without status epilepticus; F32.A Depression, unspecified; Z79.899 Other long term (current) drug therapy; W18.39XA Other fall on same level, initial encounter; Y93.89 Activity, other specified; Y92.098 Other place in other non-institutional residence as the place of occurrence of the external cause; Y99.8 Other external cause status
CPT/HCPCS: 36415; 70450; 73030; 80048; 80053; 80307; 81001; 85025; 96374; 96375; 96376; G0378; J2405

== ENCOUNTER 2024-12-02 06:58 | Inpatient (IN) | payer MEDICAID ==
[~2024-12-02] VITALS: Ht 177.8 cm; Wt 78.8 kg
[~2024-12-02 06:58] MED LIST changes: +GAB100C PO; -LEVE100020 PO; -LEVE500T40 PO
[2024-12-02] MEDS: fentaNYL CITRATE 100 MCG/2 ML VL IV ONE (08:45)
--- NOTE | 2024-12-02 09:00 | DVH ---
CLINICAL INDICATION: dislocation TECHNIQUE: 1 radiographic views of the left shoulder were obtained. Comparison: XY L SHOULDER 2+ VIEW XRAY on DOS: 11/20/24, XY L SHOULDER 2+ VIEW XRAY on DOS: 08/26/24, XY L SHOULDER 2+ VIEW XRAY on DOS: 07/12/24, XY L SHOULDER 2+ VIEW XRAY on DOS: 07/11/24, XY L SHOULDER 2+ VIEW XRAY on DOS: 07/06/24 FINDINGS/IMPRESSION: Evaluation is limited on single radiograph of the left shoulder. Improved alignment compared to exam from 11/20/2024. 2 surgical screws are visualized in the left humeral head.
--- NOTE | 2024-12-02 09:14 | ED.PDOC ---
Gil. trauma (HPI) HPI Comments 24 y/o M, with PMHX of seizures presents to the ED for CC of s/p seizure. Patient states, that he had a seizure this morning (12/02/24) which resulted in his left shoulder being displaced. Patient relays, displacement happening in the past and as often as 2-3x a month. Patient endorses on, going to [facility] this morning (12/02/24); was relayed to [facility] as provider did not want to place shoulder back into place. Patient denies numbness, tingling, musculoskeletal pain or nausea. No other symptoms or modifying factors at this time. Chief Complaint: Seizure Time Seen by MD: 08:45 Primary Care Provider: IEHP Reviewed notes: Nurses Notes, Medications, Allergies Allergies: Coded Allergies: NO KNOWN ALLERGIES (Unverified , 04/04/10) Home Meds Active Scripts Oxycodone W/ Acetaminophen (Percocet 5/325MG) 1 Tab Tb, 2 TAB PO TIDPRN PRN for 3 Days, #10 TAB Prov:NELLA POST MD 11/22/24 Divalproex Sodium (Depakote Er) 500 Mg Tab, 1 TAB PO BID, #60 TAB 2 Refills Prov:JACKELYN SANCHEZ MD 07/13/24 Levetiracetam (Keppra) 1,000 Mg Tab, 1 TAB PO BID, #60 TAB 5 Refills Prov:JACKELYN SANCHEZ MD 07/13/24 Hydrocodone-Acetaminophen (Hydrocodone Bitartrate/AC 5-325 mg) 1 Tab Tab, 1 TAB PO Q6HPRN PRN, #20 TAB Prov:GATITO VENTURA 07/11/24 Ibuprofen Micronized (Ibuprofen) 800 Mg Tab, 800 MG PO Q8HPRN PRN, #20 TAB Prov:GATITO VENTURA 07/11/24 Reported Medications Fluticasone Propionate (Nasal) (Fluticasone Propionate) 50 Mcg/Act Spr, 1 SPRAY SUKHWINDER BID 12/02/24 Gabapentin (Gabapentin) 100 Mg Cap, 1 CAP PO TID 11/20/24 Divalproex Sodium (Divalproex Sodium Dr) 500 Mg Tab, 1 TAB PO BID 07/05/24 Trazodone Hcl (Trazodone Hcl) 50 Mg Tab, 50 MG PO HS, TAB 11/10/17 Clonazepam (KlonoPIN TABLET) 0.5 Mg Tb, 1 MG PO HS 11/10/17 Zonisamide (Zonisamide) 100 Mg Cap, 300 MG PO HS 10/01/17 Information Source: Patient Mode of Arrival: Ambulatory Severity: Mild Timing: Hours Duration: Since onset Prehospital treatment: None Location: (L) Shoulder Location of laceration: None Mechanism: Other (s/p seizure) Associated signs and symtoms: None Past Medical History PAST MEDICAL HISTORY: Seizures Surgical History: Denies all surgeries Family History Family History: Unknown Social History Smoker: Cigarettes Alcohol: Occasionally Drugs: Marijuana Lives In: Home Constitutional: denies: chills, diaphoresis, fatigue, fever, malaise, sweats, weakness, others EENTM: denies: blurred vision, double vision, ear bleeding, ear discharge, ear drainage, ear pain, ear ringing, eye pain, eye redness, hearing loss, mouth pain, mouth swelling, nasal discharge, nose bleeding, nose congestion, nose pa in, photophobia, tearing, throat pain, throat swelling, voice changes, others Respiratory: denies: cough, hemoptysis, orthopnea, SOB at rest, shortness of breath, SOB with excertion, stridor, wheezing, others Cardiovascular: denies: chest pain, dizzy spells, diaphoresis, Dyspnea on exertion, edema, irregular heart beat, left arm pain, lightheadedness, palpitations, PND, syncope, others Gastrointestinal: denies: abdomen distended, abdominal pain, blood streaked bowels, constipated, diarrhea, dysphagia, difficulty swallowing, hematemesis, melena, nausea, poor appetite, poor fluid intake, rectal bleeding, rectal pain, vomiting, others Genitourinary: denies: burning, dysuria, flank pain, frequency, hematuria, incontinence, penile discharge, penile sore, pain, testicle pain, testicle swelling, urgency, others Neurological: denies: dizziness, fainting, headache, left sided numbness, left sided weakness, numbness, paresthesia, pre-existing deficit, right sided numbness, right sided weakness, seizure, speech problems, tingling, tremors, weakness, others Musculoskeletal: reports: others (left arm pain); denies: back pain, gout, joint pain, joint swelling, muscle pain, muscle stiffness, neck pain Integumetry: denies: bruises, change in color, change in hair/nails, dryness, laceration, lesions, lumps, rash, wounds, others Allergic/Immunocompromised: denies: Difficulty Healing, Frequent Infections, Hives, Itching, others Hematologic/Lymphatic: denies: anemia, blood clots, easy bleeding, easy bruising, swollen glands, others Endocrine: denies: excessive hunger, excessive sweating, excessive thirst, excessive urination, flushing, intolerance to cold, intolerance to heat, unexplained weight gain, unexplained weight loss, others Psychiatric: denies: anxiety, bipolar disorder, depression, hopeless, panic disorder, schizophrenia, sleepless, suicidal, others All Other Systems: Reviewed and Negative Physical Exam General Appearance: Moderate Distress HEENT: Normal ENT Inspection, Pharynx Normal, TMs Normal Neck: Full Range of Motion, Non-Tender, Normal, Normal Inspection Respiratory: Chest Non-Tender, Lungs Clear, No Accessory Muscle Use, No Respiratory Distress, Normal Breath Sounds Cardiovascular: No Edema, No JVD, No Murmur, No Gallop, Normal Peripheral Puls es, Regular Rate/Rhythm Breast Exam: Deferred Gastrointestinal: No Organomegaly, Non Tender, No Pulsatile Mass, Normal Bowel Sounds, Soft Genitalia: Deferred Pelvic: Deferred Rectal: Deferred Extremities: Decreased range of motion (Left upper extremity) Musculoskeletal : Apperance: Normal Neurologic: Alert, No Motor Deficits, No Sensory Deficits Cerebellar Function: Normal Reflexes: Normal Skin: Dry, Normal Color, Warm Peripheral Pulses: 3+ Radial (R), 3+ Radial (L) Lymphatic: No Adenopathy Was a procedure done? Was a procedure done?: No Differential Diagnosis Multiple Trauma: Fractures, Abrasions, Contusion, Other (displacement) X-Ray, Labs, Meds, VS Vital Signs Date Time Temp Pulse Resp B/P (MAP) Pulse Ox O2 Delivery O2 Flow Rate FiO2 12/02/24 14:10 98.7 54 19 116/74 (88) 98.7 12/02/24 10:18 98.7 53 19 133/80 (97) 98.7 12/02/24 10:05 19 Room Air* 0 21 12/02/24 07:16 97.9 58 18 101/71 (81) 96 Lab Test 12/02/24 07:23 Range/Units POC Glucose 134 H 70-106 mg/dl Current Medications Medications (Trade) Dose Ordered Sig/Anuj Route Start Time Stop Time Status Last Admin Acetaminophen/ Hydrocodone Bitart ([place] 10/325MG Tab) 1 tab ONCE ONCE PO 12/02/24 09:45 12/02/24 09:50 DC 12/02/24 10:[address] [address] Ph: [phone] DIAGNOSTIC IMAGING Diagnostic Imaging Report : [id number] Signed PATIENT: NEW OLMSTEAD ACCT: [id number] UNIT: [id number] : 2000 LOC: ER ROOM / BED: / AGE / SEX: 24 / M ADM STATUS: REG ER SERVICE [id number] ORDERING PHYSICIAN: FAVIOLA SALMON MD PROCEDURE(s): LSHD - L SHOULDER 1V XRAY REASON: dislocation ORDER NUMBER(s): [id number], ACCESSION NUMBER(s): [id number] CLINICAL INDICATION: dislocation TECHNIQUE: 1 radiographic views of the left shoulder were obtained. Comparison: XY L SHOULDER 2+ VIEW XRAY on DOS: 11/20/24, XY L SHOULDER 2+ VIEW XRAY on DOS: 08/26/24, XY L SHOULDER 2+ VIEW XRAY on DOS: 07/12/24, XY L SHOULDER 2+ VIEW XRAY on DOS: 07/11/24, XY L SHOULDER 2+ VIEW XRAY on DOS: 07/06/24 FINDINGS/IMPRESSION: Evaluation is limited on single radiograph of the left shoulder. Improved a lignment compared to exam from 11/20/2024. 2 surgical screws are visualized in the left humeral head. ATED BY: JODI DEL VALLE MD DICTATED DATE/TIME: 12/02/24899 SIGNED BY: JODI DEL VALLE MD SIGNED DATE/TIME: 12/02/24899 CC: Patient alert. Complaining of left shoulder pain. Had a seizure causing dislocation of left shoulder pain Explained to the patient. Placed in his sling. Has good pulses. [place] color. No sign of any vascular insufficiency. Blood sugar slightly elevated pain Was given pain medication. Reviewed x-ray of the shoulder. Chronic condition. Orthopedic consultation. Explained to the patient. Time of 1ST Reevaluation: 09:05 Reevaluation 1ST: Unchanged Patient Education/Counseling: Diagnosis, Treatment Family Education/Counseling: No Family Present Departure 1 Departure Time of Disposition: 09:30 Impression: Primary Impression: Dislocation of left shoulder joint Qualified Codes: S43.005A - Unspecified dislocation of left shoulder joint, initial encounter Additional Impressions: Shoulder dislocation Qualified Codes: S43.005S - Unspecified dislocation of left shoulder joint, sequela Seizure Disposition: ADMITTED INPATIENT Admit to: Med Surg Condition: Guarded Critical Care Note Critical Care Time?: No Stability Stability form required: No Heart Score Heart Score: Heart Score Response (Comments) Value History N/A 0 EKG N/A 0 Age N/A 0 Risk Factors N/A 0 Troponin N/A 0 Total 0 I personally scribed for FAVIOLA SALMON MD ([email or web address]) on 12/02/24 at 09:14. Electronically submitted by Ara Ryder ([email or web address]). I personally scribed for FAVIOLA SALMON MD ([email or web address]) on 12/02/24 at 09:35. Electronically submitted by Ara Ryder ([email or web address]). FAVIOLA SALMON MD Dec 02, 2024 09:14
[2024-12-02 10:05] VITALS: RESP 19
[2024-12-02] MEDS: HYDROcodone-ACET 10/325MG TAB PO ONE (10:07)
--- NOTE | 2024-12-02 11:23 | DVH ---
CLINICAL INDICATION: 24 years old, Male; left shouler pain, hx of dislocations. TECHNIQUE: Noncontrast CT of the left shoulder was performed. Sagittal and coronal reformatted images are provided. COMPARISON: Radiographs of the left shoulder performed on 12/02/2024 CT Dose: CTDI volume is 19.74 mGy. Dose-length product is 458.91 mGy*cm FINDINGS: There is anterior positioning of the humeral head relative to the glenoid compatible with anterior gl enohumeral joint dislocation. The humeral head abuts the glenoid. There is a fracture of the anteri or inferior glenoid with a screw traversing the fracture consistent with a prior surgical fixation. T here is flattening of the posterolateral humeral head consistent with a Hill-Sachs lesion. There is a n osteophyte of the medial humeral head and there are subchondral cysts in the humeral head compatibl e with degenerative changes. No evidence of acute osseous injury. The acromioclavicular joint space is maintained. IMPRESSION: 1. Anterior glenohumeral dislocation with old osseous [place] injury status post surgical fixation, a nd Hill-Sachs lesion, likely chronic. Posttraumatic osteoarthritis of the glenohumeral joint. No acut e fracture. HS:Y All CT scans at this medical facility are performed using dose modulation techniques as appropriate t o a performed exam including the following: Automated exposure control was utilized; adjustment of th e MA and/or KV according to patient size; and use of iterative reconstruction technique.
--- NOTE | 2024-12-02 14:04 | DVHINCON2 ---
Date of service: Dec 02, 2024 Reason for Consultation left shoulder dislocation. History of Present Illness Mr. Vazquez is a 24 year old male who presents to the ED due to a recurrent left s houlder dislocation which occurred after experiencing a seizure this morning. Patient is known to our practice and has undergone multiple procedures with our doctors for his left shoulder. Patient admits to continued cocaine use. Patient is otherwise feeling well denying any other complaints or concerns such as chest pain, shortness of breath, nausea, vomiting, numbness, or tingling. Past Medical History Hx of seizures Past Surgical History Left shoulder bankart repair Family History: Patient reports no known family medical history. Family History Noncontributory Social History Patient admits to smoking cigarettes, marijuana, alcohol, and cocaine use Allergies: Coded Allergies: NO KNOWN ALLERGIES (Unverified , 04/04/10) Home Meds Active Scripts Oxycodone W/ Acetaminophen (Percocet 5/325MG) 1 Tab Tb, 2 TAB PO TIDPRN PRN for 3 Days, #10 TAB Prov:NELLA POST MD 11/22/24 Divalproex Sodium (Depakote Er) 500 Mg Tab, 1 TAB PO BID, #60 TAB 2 Refills Prov:JACKELYN SANCHEZ MD 07/13/24 Levetiracetam (Keppra) 1,000 Mg Tab, 1 TAB PO BID, #60 TAB 5 Refills Prov:JACKELYN SANCHEZ MD 07/13/24 Hydrocodone-Acetaminophen (Hydrocodone Bitartrate/AC 5-325 mg) 1 Tab Tab, 1 TAB PO Q6HPRN PRN, #20 TAB Prov:GATITO VENTURA 07/11/24 Ibuprofen Micronized (Ibuprofen) 800 Mg Tab, 800 MG PO Q8HPRN PRN, #20 TAB Prov:GATITO VENTURA 07/11/24 Reported Medications Gabapentin (Gabapentin) 100 Mg Cap, 1 CAP PO TID 11/20/24 Divalproex Sodium (Divalproex Sodium Dr) 500 Mg Tab, 1 TAB PO BID 07/05/24 Trazodone Hcl (Trazodone Hcl) 50 Mg Tab, 50 MG PO HS, TAB 11/10/17 Clonazepam (KlonoPIN TABLET) 0.5 Mg Tb, 1 MG PO HS 11/10/17 Zonisamide (Zonisamide) 100 Mg Cap, 300 MG PO HS 10/01/17 Review of Systems 10 point review of systems negative except as per HPI Vital Signs Vital Signs Date Time Temp Pulse Resp B/P (MAP) Pulse Ox O2 Delivery O2 Flow Rate FiO2 12/02/24 10:18 98.7 53 19 133/80 (97) 98.7 12/02/24 10:05 Room Air* 0 21 12/02/24 07:16 96 Physical Exam General appearance: A&O x4 in mild distress HEENT: Normal ENT inspection, pharynx normal, TMs normal Neck: Full range of motion, nontender, normal inspection Respiratory: Chest nontender, without accessory muscle use, no respiratory distress Cardiovascular: No edema, no JVD, normal peripheral pulses Gastrointestinal: Soft, nontender, no organomegaly. Musculoskeletal: Left shoulder range of motion grossly limited with pain on movement, normal capillary refill, no distal edema, neurovascularly intact. Skin: Dry, normal color, warm Lymphatic: No adenopathy Labs/Diagnostic Data Labs Test 12/02/24 07:23 Range/Units POC Glucose 134 H 70-106 mg/dl Left shoulder CT scan reviewed and demonstrated: Anterior glenohumeral dislocation with old osseous Bankart injury status post surgical fixation, and Hill-Sachs lesion, likely chronic. Posttraumatic osteoarthritis of the glenohumeral joint. No acute fracture. Assessment Left shoulder subluxation s/p left shoulder bankart repair Plan/Recommendation Dr. Leary and I had a lengthy discussion with the patient and given his recurrent dislocations he will need a revision surgery in order to improve his stability but given his seizures are not well controlled there is a very high risk of further injury or trauma to repair site and failure of any revision which can lead to further complications and recommend instead closed reduction under sedation and will have patient follow up with our office on an outpatient basis and will discuss a future revision surgery once he has had 3 months without a seizure. We will also be ordering a toxicology screen and discussed quitting his substance abuse as it may be triggering his seizures. Patient understood and agreed. Plan discussed with: Patient CECILIO LEAHY Dec 02, 2024 14:04
--- NOTE | 2024-12-02 15:27 | DVHHP2 ---
History of Present Illness Reason for Visit: Left shoulder dislocation History of Present Illness Michael Vazquez is a 24-year-old male with past medical history of left shoulder dislocation, ORIF, and seizures who presents to the ED with left shoulder pain status post fall and seizure at home x1 day. Patient reports that he was walking to the bathroom had a seizure and suddenly fell on his left shoulder. Patient reports his pain 10/10 throbbing and constant. Patient states that when he was here prior he had his shoulder popped back in. Patient denies any chest pain, shortness of breath, nausea, vomiting, diarrhea, abdominal pain, fever, chills, recent sick contacts, recent illnesses, headaches, lightheadedness, and dizziness. 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 COORDINATOR: Seizure Past Medical History Left shoulder dislocation Past Surgical History: Other (ORIF) Family History: None Smoke: <1 pack per day ALCOHOL: occassional Drugs: Cocaine, Marijuana Lives: Roommate Domestic Violence: Neg Review of Systems Constitutional: No: Fever, Chills, Sweats, Weakness, Malaise, Other Eyes: No: Pain, Vision change, Conjunctivae inflammation, Eyelid inflammation, Other, Redness ENT: No: Ear pain, Ear discharge, Nose pain, Nose discharge, Nose congestion, Mouth pain, Mouth swelling, Throat pain, Throat swelling, Other Respiratory: No: Cough, Dry, Shortness of breath, SOB with excertion, Wheezing, Hemoptysis, Pleuritic Pain, Sputum, Wheezing, Other Cardiovascular: No: Chest Pain, Palpitations, Orthopnea, Paroxysmal Noc. Dyspnea, Edema, Lt Headedness, Other Gastrointestinal: No: Nausea, Vomiting, Abdominal Pain, Diarrhea, Constipation, Melena, Hematochezia, Other Genitourinary: No Dysuria, No Frequency, No Incontinence, No Hematuria, No Retention, No Other Musculoskeletal: other (Left shoulder dislocation), shoulder pain; No: neck pain, arm pain, back pain, hand pain, leg pain, foot pain Skin: No: Rash, Lesions, Jaundice, Bruising, Other Neurological: No: Weakness, Numbness, Incoordination, Change in speech, Confusion, Seizures, Other Allergies: Coded Allergies: NO KNOWN ALLERGIES (Unverified , 04/04/10) Exam Vital Signs Vital Signs Date Time Temp Pulse Resp B/P (MAP) Pulse Ox O2 Delivery O2 Flow Rate FiO2 12/02/24 14:10 98.7 54 19 116/74 (88) 98.7 12/02/24 10:05 Room Air* 0 21 12/02/24 07:16 96 General Appearance: Alert, Oriented X3, Cooperative, No acute distress HEENT: Atraumatic, PERRLA, EOMI, Mucous membr. moist/pink Respiratory: Clear to auscultation, Normal air movement Cardiovascular: Normal S1, Normal S2, No murmurs Abdominal: Normal bowel sounds, Soft, No tenderness, No hepatospenomegaly, No masses Extremities: No clubbing, No cyanosis, Normal pulses Skin: No rashes, No breakdown, No significant lesion Neuro: Normal gait, Normal speech, Strength at 5/5 X4 ext, Normal tone, Sensation intact Psych/Mental Status: Mental status NL, Mood NL Labs/Xrays Labs Test 12/02/24 07:23 Range/Units POC Glucose 134 H 70-106 mg/dl CLINICAL INDICATION: 24 years old, Male; left shouler pain, hx of dislocations. TECHNIQUE: Noncontrast CT of the left shoulder was performed. Sagittal and coronal reformatted images are provided. COMPARISON: Radiographs of the left shoulder performed on 12/02/2024 CT Dose: CTDI volume is 19.74 mGy. Dose-length product is 458.91 mGy*cm FINDINGS: There is anterior positioning of the humeral head relative to the glenoid compatible with anterior glenohumeral joint dislocation. The humeral head abuts the glenoid. There is a fracture of the anterior inferior glenoid with a screw traversing the fracture consistent with a prior surgical fixation. There is flattening of the posterolateral humeral head consistent with a Hill-Sachs lesion. There is an osteophyte of the medial humeral head and there are subchondral cysts in the humeral head compatible with degenerative changes. No evidence of acute osseous injury. The acromioclavicular joint space is maintained. IMPRESSION: 1. Anterior glenohumeral dislocation with old osseous Bankart injury status post surgical fixation, and Hill-Sachs lesion, likely chronic. Posttraumatic osteoarthritis of the glenohumeral joint. No acute fracture. CLINICAL INDICATION: dislocation TECHNIQUE: 1 radiographic views of the left shoulder were obtained. Comparison: XY L SHOULDER 2+ VIEW XRAY on DOS: 11/20/24, XY L SHOULDER 2+ VIEW XRAY on DOS: 08/26/24, XY L SHOULDER 2+ VIEW XRAY on DOS: 07/12/24, XY L SHOULDER 2+ VIEW XRAY on DOS: 07/11/24, XY L SHOULDER 2+ VIEW XRAY on DOS: 07/06/24 FINDINGS/IMPRESSION: Evaluation is limited on single radiograph of the left shoulder. Improved alignment compared to exam from 11/20/2024. 2 surgical screws are visualized in the left humeral head. Assessment/Plan Assessment/Plan Assessment/plan: Left shoulder dislocation Anterior glenohumeral dislocation with old osseous Bankart injury status post surgical fixation, and Hill-Sachs lesion, likely chronic. Labs Antiemetics Pain management X-ray left shoulder CT shoulder Seizure precautions UDS UA A.m. lab Ortho consult History of seizure Continue home medication Polysubstance abuse Counseled patient on cessation of polysubstance use FEN/PPx Diet Hep-Lock DVT prophylaxis-not indicated patient ambulating PUD prophylaxis-not indicated patient with no history of GI bleed or GERD Discussed plan of care with patient and nurse Home medications reconciled Admit to med surge Plan discussed with: Patient My Orders Orders - XIAO ANDINO Procedure Category Date Status Time Complete Blood Count LAB 12/02/24 Logged 14:47 Basic Metabolic Panel LAB 12/02/24 Logged 14:47 Admit ADMIT 12/02/24 Verified 15:16 Allergies ALEX 12/02/24 Verified 15:16 Code Status CODE 12/02/24 Verified 15:16 Hydrocodone-Acet PHA 12/02/24 Verified 5/325mg Tab ([place] 15:30 Ondansetron Hcl PHA 12/02/24 Verified (Zofran) 15:30 Complete Blood Count LAB 12/03/24 Verified 04:00 Comprehensive LAB 12/03/24 Verified Metabolic Panel 04:00 Cardiac DIET 12/02/24 Verified Diet-2gna,Lofat,Lochol Dinner Acetaminophen Tablet PHA 12/02/24 Verified (Tylenol Tablet) 15:30 Morphine Sulfate PHA 12/02/24 Verified Injection 15:30 Date of Service: Dec 02, 2024 Billing Provider: XIAO ANDINO Common Visit Codes: [id number] INP/OBS CARE (HIGH) XIAO ANDINO Dec 02, 2024 15:27
[2024-12-02] MEDS ORDERED: ACETAMINOPHEN 325 MG TAB PO PRN (15:30)
[2024-12-02] MEDS ORDERED: ONDANSETRON HCL 4 MG/2 ML VIAL IV PRN (15:30)
[2024-12-02 15:37] LABS: Basophils # (auto) 0.1 10 ^3/uL (0-0.2); Basophils % (auto) 0.8 % (0.0-2.0); Eosinophils # (auto) 0.1 10 ^3/uL (0-0.8); Eosinophils % (auto) 1.5 % (0.0-7.0); Hematocrit 42.1 % (41.0-53.0); Hemoglobin 14.3 g/dL (13.5-17.5); Lymphocytes # (auto) 2.1 10 ^3/uL (0.4-5.4); Mean Corpuscular Hemoglobin 30.3 pg (28.0-32.0); Mean Corpuscular Volume 89.1 fL (80.0-100.0); Monocytes # (auto) 0.4 10 ^3/uL (0-1.3); Monocytes % (auto) 6.5 % (0.0-12.0); Neutrophils # (auto) 4.2 10 ^3/uL (1.6-8.6); Neutrophils % (auto) 61.2 % (37.0-80.0); Nucleated Red Blood Cells % 0.2 %; Platelet Count (auto) 280 10^3/uL (140-450); Red Blood Cells 4.73 10^6/uL (4.5-5.90); Red Cell Distribution Width 13.5 % (11.8-14.3); White Blood Cell 6.8 10^3/uL (4.4-10.8)
[2024-12-02 15:43] LABS: Potassium 4.3 mmol/L (3.5-5.1); Sodium 140 mmol/L (136-145)
[2024-12-02 15:44] LABS: Anion Gap 7 (5-15); Carbon Dioxide 24 mmol/L (20-31)
[2024-12-02 15:45] LABS: Calcium 9.8 mg/dL (8.7-10.4)
[2024-12-02 15:49] LABS: Glucose 88 mg/dL (74-106)
[2024-12-02 15:50] LABS: BUN/Creatinine Ratio 13.5 (10.0-20.0); Blood Urea Nitrogen 14 mg/dL (9-23)
[2024-12-02 16:04] LABS: Chloride 109 mmol/L (98-107)
[2024-12-02] MEDS ORDERED: FLUT50SP NAS (17:19)
[2024-12-02] MEDS: MORPHINE SULFATE INJ 2 MG/ml SYRG IV PRN (18:24)
[2024-12-02] MEDS: levETIRAcetam 500 MG TAB PO ONE (18:24)
[2024-12-02 18:40] VITALS: RESP 19
[2024-12-02 20:33] VITALS: PULSE 45; RESP 19; O2SAT 97
[2024-12-02] MEDS: Zonisamide 100 MG CAPSULE PO SCH (22:00)
[2024-12-02] MEDS: MORPHINE SULFATE INJ 2 MG/ml SYRG IV ONE (22:26)
[2024-12-02] MEDS: GABAPENTIN 100 MG CAP PO SCH (22:39)
[2024-12-02] MEDS: traZODone HCL 50 MG TAB PO SCH (22:39)
[2024-12-02] MEDS: clonazePAM 0.5 MG TAB PO SCH (22:39)
[2024-12-02] MEDS: levETIRAcetam 500 MG TAB PO SCH (22:39)
[2024-12-03] VITALS (7 sets, daily range): BP systolic 101–124; BP diastolic 47–82; PULSE 44–64; RESP 13–19; TEMP 97.3–98; O2SAT 96–100
[2024-12-03] MEDS: HYDROcodone-ACET 5/325MG TAB PO PRN (00:45)
[2024-12-03] MEDS: KETOROLAC TROMETH 30 MG/ML 1ML VIAL IV ONE (06:46)
[2024-12-03 11:59] LABS: Basophils # (auto) 0.1 10 ^3/uL (0-0.2); Basophils % (auto) 1.1 % (0.0-2.0); Eosinophils # (auto) 0.2 10 ^3/uL (0-0.8); Eosinophils % (auto) 2.8 % (0.0-7.0); Hematocrit 40.3 % (41.0-53.0); Hemoglobin 13.5 g/dL (13.5-17.5); Lymphocytes # (auto) 2.5 10 ^3/uL (0.4-5.4); Lymphocytes % (auto) 43.7 % (10.0-50.0); Mean Corpuscular Hgb Conc. 33.7 g/dL (32.0-36.0); Mean Corpuscular Volume 89.2 fL (80.0-100.0); Monocytes # (auto) 0.4 10 ^3/uL (0-1.3); Monocytes % (auto) 6.3 % (0.0-12.0); Neutrophils # (auto) 2.6 10 ^3/uL (1.6-8.6); Neutrophils % (auto) 46.1 % (37.0-80.0); Nucleated Red Blood Cells % 0.1 %; Platelet Count (auto) 268 10^3/uL (140-450); Red Blood Cells 4.51 10^6/uL (4.5-5.90); Red Cell Distribution Width 13.8 % (11.8-14.3); White Blood Cell 5.7 10^3/uL (4.4-10.8)
[2024-12-03 12:01] LABS: Alanine Aminotransferase 17 U/L (7-40); Albumin 4.4 g/dL (3.2-4.8); Alkaline Phosphatase 73 U/L (46-116); Anion Gap 7 (5-15); Blood Urea Nitrogen 13 mg/dL (9-23); Calcium 9.4 mg/dL (8.7-10.4); Carbon Dioxide 25 mmol/L (20-31); Chloride 107 mmol/L (98-107); Glucose 83 mg/dL (74-106); Potassium 4.4 mmol/L (3.5-5.1); Sodium 139 mmol/L (136-145)
[2024-12-03 12:02] LABS: Total Protein 6.5 g/dL (5.7-8.2)
[2024-12-03 12:11] LABS: Aspartate Aminotransferase 11 U/L (13-40); Bilirubin, Total 0.2 mg/dL (0.2-1.0)
--- NOTE | 2024-12-03 15:26 | DVHPN2 ---
Subjective 12/03-patient has history of possible polysubstance abuse. Some tendency while inpatient to ask for Dilaudid. Patient describes episode of loss of consciousness, without tongue biting or bowel or bladder loss. He endorses that he was done had a seizure for many years. Unclear if this is seizure versus syncope. We will consult Neurology to evaluate for possible breakthrough seizure. We will do workup for syncope to rule out a given patient causes. For syncope we will get orthostatic vitals, echo, EKG, put on tele, UA and UDS. tentaive plan: If patient remains seizure-free for 24 hours and/or if Neurology clears, AND if syncope workup is negative, can potentially discharge patient over weekend with neurology General Cardiology outpatient follow-ups and ortho follow up for outpatient reduction with sling at home. Reviewed: H&P Changes from previous H/P or p: No Changes General: Per HPI Objective Vitals Vital Signs Date Time Temp Pulse Resp B/P (MAP) Pulse Ox O2 Delivery O2 Flow Rate FiO2 12/03/24 13:00 97.3 50 18 124/82 (96) 100 97.3 12/03/24 08:00 Room Air* 0 21 Intake/Output Intake and Output 12/03/24 07:00 Intake Total 0 ml Balance 0 ml Intake Oral 0 ml Medications Current Medications Medications Dose Ordered Sig/Anuj Route Start Time Stop Time Status Last Admin Dose Admin Acetaminophen/ Hydrocodone Bitart 1 tab Q4HP PRN PO 12/02/24 15:30 12/03/24 05:16 1 TAB Ondansetron HCl 4 mg Q4HP PRN IV 12/02/24 15:30 Acetaminophen 650 mg Q6HP PRN PO 12/02/24 15:30 Morphine Sulfate 2 mg Q4HPRN PRN IV 12/02/24 15:30 12/03/24 10:40 2 MG Clonazepam 1 mg HS PO 12/02/24 22:00 12/02/24 22:39 1 MG Gabapentin 100 mg TID PO 12/02/24 22:00 12/03/24 05:10 100 MG Trazodone HCl 50 mg HS PO 12/02/24 22:00 12/02/24 22:39 50 MG Divalproex Sodium 500 mg BID PO 12/02/24 22:00 12/03/24 10:30 500 MG Levetiracetam 1,000 mg BID PO 12/02/24 22:00 12/03/24 10:30 1,000 MG Patient Own Medication 300 mg HS PO 12/02/24 22:00 Laboratory Results Laboratory Tests 12/03/24 11:21 Chemistry Test 12/02/24 15:17 12/03/24 11:21 Calcium Level 9.8 mg/dL (8.7-10.4) 9.4 mg/dL (8.7-10.4) Albumin 4.4 g/dL (3.2-4.8) Total Protein 6.5 g/dL (5.7-8.2) LFT Test 12/03/24 11:21 Alanine Aminotransferase (ALT) 17 U/L (7-40) Alkaline Phosphatase 73 U/L (46-116) Aspartate Amino Transferase (AST) 11 U/L (13-40) L Total Bilirubin 0.2 mg/dL (0.2-1.0) Labs and/or images reviewed: Labs reviewed by me, Image(s) reviewed by me Assessment/Plan Assessment/Plan 12/03-patient has history of possible polysubstance abuse. Some tendency while inpatient to ask for Dilaudid. Patient describes episode of loss of consciousness, without tongue biting or bowel or bladder loss. He endorses that he was done had a seizure for many years. Unclear if this is seizure versus syncope. We will consult Neurology to evaluate for possible breakthrough seizure. We will do workup for syncope to rule out a given patient causes. For syncope we will get orthostatic vitals, echo, EKG, put on tele, UA and UDS. tentative plan: If patient remains seizure-free for 24 hours and/or if Neurology clears, AND if syncope workup is negative, can potentially discharge patient over weekend with neurology General Cardiology outpatient follow-ups and ortho follow up for outpatient reduction with sling at home. Left shoulder dislocation Anterior glenohumeral dislocation with old osseous Bankart injury status post surgical fixation, and Hill-Sachs lesion, likely chronic. History of seizure, concern for potential breakthrough seizures Concern for presyncope/syncope Polysubstance abuse - L shoulder Xray - Evaluation is limited on single radiograph of the left shoulder. Improved alignment compared to exam from 11/20/2024. 2 surgical screws are visualized in the left humeral head. - L shoulder CT wo Con - Anterior glenohumeral dislocation with old osseous Bankart injury status post surgical fixation, and Hill-Sachs lesion, likely chronic. Posttraumatic osteoarthritis of the glenohumeral joint. No acute fracture. - ortho rec outpatient f/u for closed reduction under sedation. future revision surgery once he has had 3 months without a seizure. - Unclear if this is seizure versus syncope. - We will consult Neurology to evaluate for possible breakthrough seizure. - We will do workup for syncope to rule out a given patient causes. For syncope we will get orthostatic vitals, echo, EKG, put on tele, UA and UDS. - Tele Diet regular DVT prophylaxis- OOB GI prophylaxis tolerating diet Med to be Full code Plan discussed with: Patient My Orders Orders - NELLA POST MD Procedure Category Date Status Time * Neurology Consult CONS 12/03/24 Transmitted 12:24 Date of Service: Dec 03, 2024 Billing Provider: NELLA POST MD Common Visit Codes: [id number] INP/OBS CARE(HIGH) NELLA POST MD Dec 03, 2024 15:26
[2024-12-03] MEDS: HYDROcodone-ACET 10/325MG TAB PO PRN (20:41)
--- NOTE | 2024-12-03 23:07 | DVHINCON2 ---
Date of service: Dec 03, [address] Libby Hagen Reason for Consultation Recurrent seizure on meds History of Present Illness Mr. Vazquez is a 24 years old gentleman with a history of seizure disorder, left showed fracture (fixed on 07/06/2024), the patient came to the hospital on 12/02/24 for seizure activity. At this time, he is alert and oriented, he provided the following history I saw him on 09/16/2017, 09/28/2017, 07/07/24, 07/12/2024, 08/26/2024 for seizure activity. He remember when his walking outside his home, but the next memory was waking up with his mom helping him, he was told that he had seizure but without biting or incontinence, but he injured his left shoulder, which had sustained multiple injuries previously during seizure activity. At that time, he reports a lot of pain in the left showed however his pain medication be on hold due to low blood pressure and bradycardia He reports that he has seizure attack once every 2-3 weeks recently He reports that he has constant aura, smelling metal, in the lasts a few hours According to my consult report dated 09/28/2017, his mother reported that his seizure started when he was 1-year-old, it was generalized shaking with loss of consciousness and a post ictal confusion On 09/28/17 I witnessed a seizure attack. The seizure started with head bending over, eyes closing and nonresponsiveness, whole-body stiffed up, he made tight fists, arms closed to the chest, legs mildly flexed in the hips and knees, toes flexed. There was a very strong resistance to passive eye opening, I was able to open his eyes once, and I saw dilated pupil with good reflexes. The color of his face, lips were normal. The whole seizure was about 15 minutes. Soon after he woke up, he requested food. According my consultation report dated on 09/28/2017, his mother reported that he was said to have pseudoseizures in the [facility]. According to my progress note dated on 09/29/2017, the patient had numerous seizures with atypical feature On 07/07/2024, he reported all his seizure breakthrough where street drug related He saw a neurologist in the [facility] previously, he was new doctor now, but he does not remember the name He is on Depakote 500 mg b.i.d., Keppra 1000 mg b.i.d. UDS, 07/05/2024: Cocaine Plasma alcohol, 08/26/2024: Normal CBC, 12/03/2019 5:2.5 unremarkable 40 CMP, 12/03/2024: Unremarkable X-ray, left Shoulder, 12/02/2024: Anterior glenohumeral dislocation with old osseous Bankart injury status post surgical fixation, and Hill-Sachs lesion, likely chronic. Posttraumatic osteoarthritis of the glenohumeral joint. No acute fracture CT head, 07/05/2024: 1. No intracranial abnormality detected. 2. No acute infarct or space occupying lesion is seen. 3. No intracranial hemorrhage or calvarial fracture CT head, 07/12/2024: No acute intracranial abnormality CT head, 08/26/2024: 1. No evidence of calvarial fracture or extra-axial collection. 2. No acute intracranial abnormality. No evidence of acute infarct or intracranial hemorrhage. 3. Wade-white matter differentiation is well maintained. 4. S-shaped deviation of the nasal septum. Mucosal thickening in the left maxillary sinus, measuring up to [address] shoulder, 09/29/17:1. Large Hill-Sachs fracture of the humeral head measuring 24 mm in length and 7 mm in depth as above. 2. A 9 x 4 mm bone fragment along the anterior aspect of the scapular body may reflect medially displaced bony Bankart fracture fragment or avulsion fracture from the glenoid attachment of the anterior band of the inferior glenohumeral ligament. 3. Large glenohumeral joint effusion. 4. No evidence of glenohumeral dislocation though there is slight anterior decentering of the humeral head . Consider correlation with MRI for better evaluation of soft tissue structures such including the labrum as clinically warrante CT left shoulder, 07/05/2024: 1. Anterior glenohumeral joint dislocation. Acute hill-Sachs fracture. Acute comminuted and displaced osseous Bankart. Joint effusion. 2. Left basilar atelectasis. CT, left shoulder, 08/26/2024: 1. 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 2. Flattening of the glenoid fossa and humeral head. 3. A few periarticular osteophytes are seen arising from the glenoid and humeral head, suggestive of degenerative osteoarthritis Past Medical History Seizures, Left shoulder dislocation Past Surgical History Left shoulder fracture repair Family History: Patient reports no known family medical history. Family History Patient reports no known family medical history. Social History Non-Smoker Alcohol: Occasionally Drugs: Marijuana, history of street drugs Lives In: Home Allergies: Coded Allergies: NO KNOWN ALLERGIES (Unverified , 04/04/10) Home Meds Active Scripts Levetiracetam (Keppra) 1,000 Mg Tab, 1 TAB PO BID, #60 TAB 5 Refills Prov:JACKELYN SANCHEZ MD 07/13/24 Current Medications Current Medications Medications (Trade) Dose Ordered Sig/Anuj Route PRN Reason Start Time Stop Time Status Last Admin Acetaminophen/ Hydrocodone Bitart (Turner 10/325MG Tab) 1 tab Q6HP PRN PO MODERATE PAIN (4-6 PAIN SCALE) 12/03/24 15:30 12/03/24 20:41 Hydromorphone HCl (Dilaudid Injection) 0.5 mg Q4HPRN PRN IV SEVERE PAIN (7-10 PAIN SCALE) 12/03/24 15:30 Review of Systems As above, the other systems are negative Vital Signs Vital Signs Date Time Temp Pulse Resp B/P (MAP) Pulse Ox O2 Delivery O2 Flow Rate FiO2 12/03/24 20:55 98.0 64 13 116/62 (80) 96 98.0 12/03/24 08:00 Room Air* 0 21 Physical Exam GENERAL EXAM: General: the patient is well developed and nourished. No acute distress. HEENT: Normocephalic, neck is supple, no carotid bruits. No mass. RESPIRATORY: Normal respiratory effort with symmetrical lung expansion. Lungs clear to auscultation. CARDIOVASCULAR: Regular rate and rhythm with no murmurs. S1, S2. ABDOMEN: Soft, nontender, normal bowel sound Tenderness to palpation in the left shoulder NEUROLOGICAL: MENTAL STATUS: Awake and alert. Oriented x 3 SPEECH, LANGUAGE, HIGHER CORTICAL FUNCTION: no aphasia or dysathria. CRANIAL NERVES: #2: Intact visual camara to confrontation. #3,4,6: Pupils are equal, round and reactive. EOMs full and conjugate. No nystagmus. #5: Facial sensation intact in all three divisions bilaterally. Mandibular strength intact. #7: Facial muscles symmetrical and strength intact. #8: Hearing grossly normal to voice. #9,10: Uvula and soft palate rise in the midline. Swallow and voice are normal. #11: Trapezius and sternomastoid strength intact bilaterally. #12: Tongue midline. No fasciculations or atrophy. SENSATION: Sensation to touch and pinprick is normal. MOTOR: Normal tone in the upper and lower extremity. Normal muscle bulk. No fasciculations. No abnormal movements or posturing. Muscle strength of the major groups in the extremities is 5/5 except weakness in the left upper extremity secondary to local pain. REFLEXES: Deep tendon reflexes normal and symmetrical. No pathological reflexes. CEREBELLAR/COORDINATION: Finger to nose are normal bilaterally. GAIT/STATION: Unremarkable Labs/Diagnostic Data Labs Test 12/03/24 11:21 12/02/24 07:23 Range/Units White Blood Count 5.7 4.4-10.8 10^3/uL Red Blood Count 4.51 4.5-5.90 10^6/uL Hemoglobin 13.5 13.5-17.5 g/dL Hematocrit 40.3 L 41.0-53.0 % Mean Corpuscular Volume 89.2 80.0-100.0 fL Mean Corpuscular Hemoglobin 30.0 28.0-32.0 pg Mean Corpuscular Hemoglobin Concent 33.7 32.0-36.0 g/dL Red Cell Distribution Width 13.8 11.8-14.3 % Platelet Count 268 140-450 10^3/uL Mean Platelet Volume 8.6 6.9-10.8 fL Neutrophils (%) (Auto) 46.1 37.0-80.0 % Lymphocytes (%) (Auto) 43.7 10.0-50.0 % Monocytes (%) (Auto) 6.3 0.0-12.0 % Eosinophils (%) (Auto) 2.8 0.0-7.0 % Basophils (%) (Auto) 1.1 0.0-2.0 % Neutrophils # (Auto) 2.6 1.6-8.6 10 ^3/uL Lymphocytes # (Auto) 2.5 0.4-5.4 10 ^3/uL Monocytes # (Auto) 0.4 0-1.3 10 ^3/uL Eosinophils # (Auto) 0.2 0-0.8 10 ^3/uL Basophils # (Auto) 0.1 0-0.2 10 ^3/uL Nucleated Red Blood Cells 0.1 % Sodium Level 139 136-145 mmol/L Potassium Level 4.4 3.5-5.1 mmol/L Chloride Level 107 98-107 mmol/L Carbon Dioxide Level 25 20-31 mmol/L Anion Gap 7 5-15 Blood Urea Nitrogen 13 9-23 mg/dL Creatinine 0.93 0.700-1.30 mg/dL Glomerular Filtration Rate Calc 116 >90 mL/min BUN/Creatinine Ratio 14.0 10.0-20.0 Serum Glucose 83 74-106 mg/dL Calcium Level 9.4 8.7-10.4 mg/dL Total Bilirubin 0.2 0.2-1.0 mg/dL Aspartate Amino Transferase (AST) 11 L 13-40 U/L Alanine Aminotransferase (ALT) 17 7-40 U/L Alkaline Phosphatase 73 46-116 U/L Total Protein 6.5 5.7-8.2 g/dL Albumin 4.4 3.2-4.8 g/dL POC Glucose 134 H 70-106 mg/dl Assessment Generalized tonic seizure Mixed epileptic and nonepileptic seizure Chronic Left shoulder fracture History of left shoulder dislocation Plan/Recommendation Monitoring Supportive treatment Depakote 500 mg b.i.d. Keppra 1000 mg b.i.d. Ativan for seizure activity Current pain management Current pain management Avoid alcohol Avoid street drugs He does not drive Follow up with his [facility] neurologist on discharge Progress: Poor This medical document was created using an electronic medical record system with [employer] dictation system. Although this document has been carefully reviewed, there may still be some phonetic and typographical errors. These areas are purely typographical due to imperfections of the software programs, and do not reflect any compromise in the patient's medical care Plan discussed with: Patient, Other PAM TABOR MD Dec 03, 2024 23:07
[2024-12-04] VITALS (8 sets, daily range): BP systolic 90–131; BP diastolic 44–84; PULSE 16–85; RESP 11–18; TEMP 97.3–98.4; O2SAT 95–98
[2024-12-04 00:08] LABS: Urine Bacteria None Seen /hpf (None Seen)
[2024-12-04 00:30] LABS: Urine Blood Negative /uL (Negative); Urine Clarity Clear (Clear); Urine Color Light-Yellow (Yellow); Urine Mucus FEW (None Seen); Urine Protein, UAD Negative (Negative); Urine Specific Gravity 1.017 (1.001-1.035); Urine Squamous Epithelial Cell None Seen /hpf (<5); Urine Urobilinogen Normal (Negative); Urine WBC 12 /HPF (0-3)
[2024-12-04 01:59] LABS: Amphetamine Screen, Urine Neg (NEGATIVE); Barbiturate Scree,Urine Neg (NEGATIVE); Benzodiazephine Screen, Urine Neg (NEGATIVE); Cocaine Screen, Urine Neg (NEGATIVE)
[2024-12-04 02:00] LABS: Cannabinoid Screen, Urine Neg (NEGATIVE); Opiate Scree,Urine Pos (NEGATIVE); Phencyclidine Screen, Urine Neg (NEGATIVE)
[2024-12-04] MEDS: HYDROmorphone HCL 2 MG/ML VL/or syr IV PRN (10:02)
--- NOTE | 2024-12-04 19:18 | DVHPN2 ---
Subjective in bed resting Reviewed: H&P Changes from previous H/P or p: No Changes General: Per HPI Objective Vitals Vital Signs Date Time Temp Pulse Resp B/P (MAP) Pulse Ox O2 Delivery O2 Flow Rate FiO2 12/04/24 17:54 73 16 106/53 12/04/24 17:00 97.3 97 97.3 12/04/24 08:10 Room Air* 0 21 Intake/Output Intake and Output 12/04/24 05:00 Intake Total 730 ml Balance 730 ml Intake Oral 730 ml # Voids 4 # Bowel Movements 2 General Appearance: Alert, Oriented X3 HEENT: Atraumatic Lungs: Clear to auscultation Cardiovascular: Regular rate Medications Current Medications Medications Dose Ordered Sig/Anuj Route Start Time Stop Time Status Last Admin Dose Admin Ondansetron HCl 4 mg Q4HP PRN IV 12/02/24 15:30 Acetaminophen 650 mg Q6HP PRN PO 12/02/24 15:30 Clonazepam 1 mg HS PO 12/02/24 22:00 12/03/24 20:42 1 MG Gabapentin 100 mg TID PO 12/02/24 22:00 12/04/24 14:10 100 MG Trazodone HCl 50 mg HS PO 12/02/24 22:00 12/03/24 20:42 50 MG Divalproex Sodium 500 mg BID PO 12/02/24 22:00 12/04/24 09:23 500 MG Levetiracetam 1,000 mg BID PO 12/02/24 22:00 12/04/24 09:24 1,000 MG Patient Own Medication 300 mg HS PO 12/02/24 22:00 Acetaminophen/ Hydrocodone Bitart 1 tab Q6HP PRN PO 12/03/24 15:30 12/04/24 14:11 1 TAB Hydromorphone HCl 0.5 mg Q4HPRN PRN IV 12/03/24 15:30 12/04/24 17:24 0.5 MG Laboratory Results Laboratory Tests 12/03/24 11:21 Urinalysis Test 12/03/24 23:59 Urine Color Light-yellow (Yellow) Urine Clarity Clear (Clear) Urine pH 6.0 (5.0-9.0) Urine Specific [place] 1.017 (1.001-1.035) Urine Protein Negative (Negative) Urine Ketones Trace (Negative) Urine Blood Negative /uL (Negative) Urine Nitrite Negative (Negative) Urine Bilirubin Negative (Negative) Urine Urobilinogen Normal mg/dL (Negative) Urine Leukocyte Esterase 1+ /uL (Negative) Urine RBC 1 /hpf (0 - 3) Urine Microscopic WBC 12 /HPF (0-3) H Urine Squamous Epithelial Cells None seen /hpf (<5) Urine Bacteria None seen /hpf (None Seen) Urine Mucus Few (None Seen) Urine Glucose Normal mg/dL (Normal) Assessment/Plan Assessment/Plan 12/03-patient has history of possible polysubstance abuse. Some tendency while inpatient to ask for Dilaudid. Patient describes episode of loss of consciousness, without tongue biting or bowel or bladder loss. He endorses that he was done had a seizure for many years. Unclear if this is seizure versus syncope. We will consult Neurology to evaluate for possible breakthrough seizure. We will do workup for syncope to rule out a given patient causes. For syncope we will get orthostatic vitals, echo, EKG, put on tele, UA and UDS. tentative plan: If patient remains seizure-free for 24 hours and/or if Neurology clears, AND if syncope workup is negative, can potentially discharge patient over weekend with neurology General Cardiology outpatient follow-ups and ortho follow up for outpatient reduction with sling at home. Left shoulder dislocation Anterior glenohumeral dislocation with old osseous Bankart injury status post surgical fixation, and Hill-Sachs lesion, likely chronic. History of seizure, concern for potential breakthrough seizures Concern for presyncope/syncope Polysubstance abuse - L shoulder Xray - Evaluation is limited on single radiograph of the left shoulder. Improved alignment compared to exam from 11/20/2024. 2 surgical screws are visualized in the left humeral head. - L shoulder CT wo Con - Anterior glenohumeral dislocation with old osseous Bankart injury status post surgical fixation, and Hill-Sachs lesion, likely chronic. Posttraumatic osteoarthritis of the glenohumeral joint. No acute fracture. - ortho rec outpatient f/u for closed reduction under sedation. future revision surgery once he has had 3 months without a seizure. - Unclear if this is seizure versus syncope. - We will consult Neurology to evaluate for possible breakthrough seizure. - We will do workup for syncope to rule out a given patient causes. For syncope we will get orthostatic vitals, echo, EKG, put on tele, UA and UDS. - Tele Diet regular DVT prophylaxis- OOB GI prophylaxis tolerating diet Med to be Full code Plan discussed with: Patient Date of Service: Dec 04, 2024 Billing Provider: AYAKA ORTEGA MD Common Visit Codes: [id number] INP/OBS CARE(HIGH) AYAKA ORTEGA MD Dec 04, 2024 19:18
--- NOTE | 2024-12-10 16:07 | DVHSR ---
APPROVED REPORT EXAM: Two-dimensional and M-mode echocardiogram with Doppler and color Doppler. Blood Pressure: 124/85 mmHg INDICATION Syncope RISK FACTORS Height: 5'10, Weight: 174 DIMENSIONS LVDd4.5 (3.8-5.7cm)LA (2D)3.2 (1.9-4.0cm)Aortic Root3.2 (2.0-3.7cm) LVDs3.1 (2.5-4.0cm)LA (MM) (1.9-4.0cm)Aortic Cusp Exc1.7 (1.5-2.0cm) EF (%) 55.0 (55-70%)Rt. Atrium3.5 (1.9-4.0cm)Asc. Aorta cm IVSd0.8 (0.7-1.1cm)RV (D)3.3 (1.8-2.4cm) PWd0.8 (0.7-1.1cm) Mitral Valve MitralMitral Stenosis E wave0.67m/sMV Mean GR.mmHg A wave0.29m/sMV Peak GR.mmHg E/A ratio2.32D MVAcm2 DECEL [id number] 1/2 Tim[place] Aortic Valve Aortic ValveAortic Stenosis V10.83m/[place] Mean GR.2mmHg V20.98m/[place] Peak GR.4mmHg LVOT Diameter2.0 (1.8-2.4cm)Doppler AVA2.66cm2 Pulmonic Valve V20.94m/s Tricuspid Valve TR Velocity1.99m/s [id number] Conclusion lvef 65% by visual estimate normal RV function, normal atria no severe valve abnormalities noted
== END 2024-12-04 22:30 | disposition left against medical advice (07) | DRG 342 ==
LOC: ER 06:58 → OVERFLOW 15:16 → WEST WING 12-03 02:39 → TELE-WESTW 12-03 16:14
PROVIDERS: ATTEND Student in an Organized Health Care Education/Training Program
DX: S43.015A Anterior dislocation of left humerus, initial encounter (principal); F14.10 Cocaine abuse, uncomplicated; S43.002A Unspecified subluxation of left shoulder joint, initial encounter; F17.210 Nicotine dependence, cigarettes, uncomplicated; W18.39XA Other fall on same level, initial encounter; S42.92XA Fracture of left shoulder girdle, part unspecified, initial encounter for closed fracture; M24.412 Recurrent dislocation, left shoulder; G40.909 Epilepsy, unspecified, not intractable, without status epilepticus; Z79.891 Long term (current) use of opiate analgesic; Z79.899 Other long term (current) drug therapy; Y93.89 Activity, other specified; Y92.89 Other specified places as the place of occurrence of the external cause; Y99.8 Other external cause status
CPT/HCPCS: 36415; 73020; 73200; 80048; 80053; 80307; 81001; 82962; 85025; 93306; 96374; G0378; J1885; J2405

== ENCOUNTER 2024-12-05 23:07 | Emergency (ER) | payer MEDICAID ==
[~2024-12-05] VITALS: Ht 177.8 cm; Wt 72.7 kg
[~2024-12-05 23:07] MED LIST changes: -CLON0.5T3 PO; -DIVA-93 PO; -DIVA1TAB59 PO; -GAB100C PO; -HYDR-4902 PO; -IBUP-1455 PO; -PERCOT PO; -TRAZ-227 PO; -ZONI100C43 PO
--- NOTE | 2024-12-05 23:45 | ED.PDOC ---
Musculoskeletal HPI Comments 24-year-old male with past medical history pertinent for seizures and recurrent shoulder dislocations, presents to ED for left shoulder pain x4 days, with no other associated symptoms. Patient reports that his shoulder has been dislocated due to having a seizure. He states that he was in this hospital yesterday, however left against medical advice. Patient was seen in this ED on 12/02/2024 and then left AMA yesterday to orthopedic evaluation. He denies any alleviating or aggravating factors. Chief Complaint: Upper Extremity Time Seen by MD: 23:09 Primary Care Provider: [facility] Reviewed Notes: Nurses Notes, Medications, Allergies Allergies: Coded Allergies: NO KNOWN ALLERGIES (Unverified , 04/04/10) Home Meds Active Scripts Levetiracetam (Keppra) 1,000 Mg Tab, 1 TAB PO BID, #60 TAB 5 Refills Prov:JACKELYN SANCHEZ MD 07/13/24 Mode of Arrival: Ambulatory Past Medical History PAST MEDICAL HISTORY: Seizures Surgical History: Denies all surgeries Family History Family History: Unknown Social History Smoker: Cigarettes Alcohol: Occasionally Drugs: Marijuana Lives In: Home Constitutional: denies: chills, diaphoresis, fatigue, fever, malaise, sweats, weakness, others EENTM: denies: blurred vision, double vision, ear bleeding, ear discharge, ear drainage, ear pain, ear ringing, eye pain, eye redness, hearing loss, mouth pain, mouth swelling, nasal discharge, nose bleeding, nose congestion, nose pain, photophobia, tearing, throat pain, throat swelling, voice changes, others Respiratory: denies: cough, hemoptysis, orthopnea, SOB at rest, shortness of breath, SOB with excertion, stridor, wheezing, others Cardiovascular: denies: chest pain, dizzy spells, diaphoresis, Dyspnea on exertion, edema, irregular heart beat, left arm pain, lightheadedness, palpitations, PND, syncope, others Gastrointestinal: denies: abdomen distended, abdominal pain, blood streaked bowels, constipated, diarrhea, dysphagia, difficulty swallowing, hematemesis, melena, nausea, poor appetite, poor fluid intake, rectal bleeding, rectal pain, vomiting, others Genitourinary: denies: burning, dysuria, flank pain, frequency, hematuria, incontinence, penile discharge, penile sore, pain, testicle pain, testicle swelling, urgency, others Neurological: denies: dizziness, fainting, headache, left sided numbness, left sided weakness, numbness, paresthesia, pre-existing deficit, right sided nu mbness, right sided weakness, seizure, speech problems, tingling, tremors, weakness, others Musculoskeletal: reports: joint pain; denies: back pain, gout, joint swelling, muscle pain, muscle stiffness, neck pain, others Integumetry: denies: bruises, change in color, change in hair/nails, dryness, laceration, lesions, lumps, rash, wounds, others Allergic/Immunocompromised: denies: Difficulty Healing, Frequent Infections, H faisal, Itching, others Hematologic/Lymphatic: denies: anemia, blood clots, easy bleeding, easy bruising, swollen glands, others Endocrine: denies: excessive hunger, excessive sweating, excessive thirst, excessive urination, flushing, intolerance to cold, intolerance to heat, unexplained weight gain, unexplained weight loss, others Psychiatric: denies: anxiety, bipolar disorder, depression, hopeless, panic disorder, schizophrenia, sleepless, suicidal, others All Other Systems: Reviewed and Negative Physical Exam General Appearance: No Apparent Distress, Normal HEENT: Normal ENT Inspection, Pharynx Normal, TMs Normal Neck: Full Range of Motion, Non-Tender, Normal, Normal Inspection Respiratory: Chest Non-Tender, Lungs Clear, No Accessory Muscle Use, No Respiratory Distress, Normal Breath Sounds Cardiovascular: No Edema, No JVD, No Murmur, No Gallop, Normal Peripheral Pulses, Regular Rate/Rhythm Breast Exam: Deferred Gastrointestinal: No Organomegaly, Non Tender, No Pulsatile Mass, Normal Bowel Sounds, Soft Genitalia: Deferred Pelvic: Deferred Rectal: Deferred Extremities: No calf tenderness, Normal capillary refill, Normal inspection, Normal range of motion, Non-tender, No pedal edema Musculoskeletal : Location: Left Extremity Location: Shoulder (Decreased range of motion to the left shoulder. 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 Was a procedure done?: Yes Sedation Sedation?: Yes Informed consent obtained: Yes Sedation start time: 03:15 Sedation end time: 03:40 Sedation total time: 15 minutes Reduction Indication: Dislocation Sedation: Consents obtained, Sedation as ordered Post-reduction x-ray show: Other (Good alignment on XR, however still with limited ROM) Informed consent obtained: Yes Risks/benefits/alt described: Yes Notes Attempted reduction twice with propofol and with assistance with Dr. Huizar, however, after reduction, the shoulder appears to keep getting dislocated with mild movement. Patient states improved pain, however he is still unable to fully range the shoulder. Differential Diagnosis EXT Differential Diagnosis: Fracture, Sprain, Dislocation, Neurovascular injury X-Ray, Labs, Meds, VS Vital Signs Date Time Temp Pulse Resp B/P (MAP) Pulse Ox O2 Delivery O2 Flow Rate FiO2 12/05/24 23:30 100.5 117 20 140/101 (114) 95 Current Medications Medications (Trade) Dose Ordered Sig/Anuj Route Start Time Stop Time Status Last Admin Ketorolac Tromethamine (Toradol Injection) 30 mg ONCE ONCE IM 12/05/24 23:30 12/05/24 23:31 DC 12/06/24 00:34 Lorazepam (Ativan Inj) 2 mg ONCE ONCE IM 12/06/24 02:15 12/06/24 02:16 DC 12/06/24 02:18 X-Ray, Labs, Meds, VS Comment Left Shoulder XR FINDINGS/IMPRESSION: : There is no evidence of acute fracture or dislocation. There are 2 screws projecting over the left glenohumeral joint Visualized portions of the lungs are clear. Chronic appearing bony Bankart and Hill-Sachs fracture deformities. CT Left Shoulder 12/02/24 IMPRESSION: 1. Anterior glenohumeral dislocation with old osseous Bankart injury status post surgical fixation, and Hill-Sachs lesion, likely chronic. Posttraumatic osteoarthritis of the glenohumeral joint. No acute fracture. MDM: Patient with history as above presented with left shoulder pain. History obtained from patient. Patient was nontoxic, stable, afebrile, ambulatory, no acute distress. Exam as above. Independently reviewed imaging. Left shoulder x- ray did not show dislocation, however CT of the left shoulder from 12/02/2024 did show dislocation. Reviewed external records. All findings were discussed with the patient. Differential diagnosis considered. Overall presentation is consistent with dislocation. Low suspicion for acute fracture, neurovascular injury. Attempted to reduce the shoulder dislocation twice, however the shoulder kept getting dislocated again postprocedure. Patient was seen here on 12/02/2024 and was admitted to the hospital for further evaluation by Orthopedics. He did leave AMA. Patient will be readmitted to the hospital for further evaluation by Orthopedics due to recurrent shoulder dislocation unable to be reduced in ED. ED attending Dr. Huizar is agreeable to this plan. Disposition: Admit This medical document was created using the [employer] dictation system. Although this document has been carefully reviewed, there may still be some phonetic and typographical errors, which are due to imperfections of the software program, and do not reflect any compromise in the patient's medical ca re. Time of 1ST Reevaluation: 04:33 Reevaluation 1ST: Improved Patient Education/Counseling: Diagnosis, Treatment, Prognosis, Need For Follow Up Family Education/Counseling: No Family Present Departure 1 Departure Time of Disposition: 04:34 Impression: Primary Impression: Dislocation of left shoulder joint Qualified Codes: S43.005A - Unspecified dislocation of left shoulder joint, initial encounter Disposition: ADMITTED INPATIENT Condition: Fair Critical Care Note Critical Care Time?: No Stability Stability form required: No Heart Score Heart Score: Heart Score Response (Comments) Value History N/A 0 EKG N/A 0 Age N/A 0 Risk Factors N/A 0 Troponin N/A 0 Total 0 GATITO VENTURA PAC Dec 05, 2024 23:45
[2024-12-06] MEDS: KETOROLAC TROMETH 30 MG/ML 1ML VIAL IM ONE (00:34)
--- NOTE | 2024-12-06 00:42 | DVH ---
CLINICAL INDICATION: R/o dislocation TECHNIQUE: XY L SHOULDER 2+ VIEW XRAY Comparison: XY L SHOULDER 1V XRAY on DOS: 12/02/24, FINDINGS/IMPRESSION: : There is no evidence of acute fracture or dislocation. There are 2 screws projecting over the left glenohumeral joint Visualized portions of the lungs are clear. Chronic appearing bony Bankart and Hill-Sachs fracture deformities.
[2024-12-06] MEDS: LIDOCAINE 1% HCL (LOCAL ANESTH.) INJ 20ML MDV IJ ONE (01:44)
[2024-12-06] MEDS: BUPIVACAINE W/ EPINEPH 0.25% INJ 50ML MDV IJ ONE (01:44)
[2024-12-06] MEDS: LORazepam 2MG/ML-1ML VIAL IM ONE (02:18)
[2024-12-06] MEDS: PROPOFOL 100 ML IV ONE (03:03)
[2024-12-06] MEDS: PROPOFOL 10 MG/ML 20 ML IV ONE (03:27)
[2024-12-06] MEDS: ONDANSETRON HCL 4 MG/2 ML VIAL IV ONE ×2 (04:45→08:55)
[2024-12-06] MEDS: levETIRAcetam 500 MG TAB PO ONE (05:35)
[2024-12-06] MEDS: MORPHINE SULFATE INJ 2 MG/ml SYRG IV ONE (05:35)
[2024-12-06 07:59] VITALS: TEMP 98.1
[2024-12-06 08:04] LABS: Basophils # (auto) 0 10 ^3/uL (0-0.2); Basophils % (auto) 0.5 % (0.0-2.0); Chloride 105 mmol/L (98-107); Eosinophils # (auto) 0 10 ^3/uL (0-0.8); Eosinophils % (auto) 0.7 % (0.0-7.0); Hematocrit 42.7 % (41.0-53.0); Hemoglobin 14.5 g/dL (13.5-17.5); Lymphocytes # (auto) 1.4 10 ^3/uL (0.4-5.4); Mean Corpuscular Hemoglobin 29.9 pg (28.0-32.0); Monocytes # (auto) 0.6 10 ^3/uL (0-1.3); Monocytes % (auto) 8.3 % (0.0-12.0); Neutrophils # (auto) 4.8 10 ^3/uL (1.6-8.6); Neutrophils % (auto) 69.5 % (37.0-80.0); Platelet Count (auto) 250 10^3/uL (140-450); Potassium 3.9 mmol/L (3.5-5.1); Red Blood Cells 4.85 10^6/uL (4.5-5.90); Red Cell Distribution Width 13.7 % (11.8-14.3); Sodium 139 mmol/L (136-145); White Blood Cell 6.9 10^3/uL (4.4-10.8)
[2024-12-06 08:05] LABS: Anion Gap 8 (5-15); Calcium 10.3 mg/dL (8.7-10.4); Carbon Dioxide 26 mmol/L (20-31)
[2024-12-06 08:10] LABS: BUN/Creatinine Ratio 16.1 (10.0-20.0); Blood Urea Nitrogen 15 mg/dL (9-23)
[2024-12-06 08:13] LABS: Glucose 120 mg/dL (74-106)
[2024-12-06] MEDS: MORPHINE SULFATE 4 MG/ML SYR/VIAL IV ONE (08:52)
--- NOTE | 2024-12-06 09:35 | DVH ---
CLINICAL INDICATION: REDUCED TECHNIQUE: 2 radiographic views of the left shoulder were obtained. Comparison: 12/02/2024 FINDINGS/IMPRESSION: The patient is again noted to be post screw fixation of the glenoid. There is no evidence for acute fracture or dislocation. AN DENG
[2024-12-06 11:28] VITALS: BP 135/79; PULSE 84; RESP 16; O2SAT 94
--- NOTE | 2024-12-06 12:43 | DVHINCON2 ---
Date of service: Dec 06, 2024 Reason for Consultation Left shoulder pain History of Present Illness Mr. Vazquez is a 24 year old male who presents to the ED due to recurrent left shoulder dislocations and pain. Patient reports that he continues to experience pain and limited range of motion to his left shoulder and wanted to come in to see if we can fix it for him as it is affecting his quality of life. He states that he was in this hospital yesterday, however left against medical advice. Patient was otherwise feeling well denying any other complaints or concerns du ring my evaluation. Past Medical History Hx of seizures Past Surgical History Left shoulder bankart repair Family History: Patient reports no known family medical history. Family History Noncontributory Social History Patient admits to smoking cigarettes, marijuana, alcohol, and cocaine use Allergies: Coded Allergies: NO KNOWN ALLERGIES (Unverified , 04/04/10) Home Meds Active Scripts Levetiracetam (Keppra) 1,000 Mg Tab, 1 TAB PO BID, #60 TAB 5 Refills Prov:JACKELYN SANCHEZ MD 07/13/24 Review of Systems 10 point review of systems negative except as per HPI Vital Signs Vital Signs Date Time Temp Pulse Resp B/P (MAP) Pulse Ox O2 Delivery O2 Flow Rate FiO2 12/06/24 11:28 84 16 135/79 (97) 94 12/06/24 07:59 98.1 98.1 Physical Exam General appearance: A&O x4 in mild distress HEENT: Normal ENT inspection, pharynx normal, TMs normal Neck: Full range of motion, nontender, normal inspection Respiratory: Chest nontender, without accessory muscle use, no respiratory distress Cardiovascular: No edema, no JVD, normal peripheral pulses Gastrointestinal: Soft, nontender, no organomegaly. Musculoskeletal: Left shoulder range of motion grossly limited with pain on movement, normal capillary refill, no distal edema, neurovascularly intact. Skin: Dry, normal color, warm Lymphatic: No adenopathy Labs/Diagnostic Data Labs Test 12/06/24 07:33 Range/Units White Blood Count 6.9 4.4-10.8 10^3/uL Red Blood Count 4.85 4.5-5.90 10^6/uL Hemoglobin 14.5 13.5-17.5 g/dL Hematocrit 42.7 41.0-53.0 % Mean Corpuscular Volume 88.0 80.0-100.0 fL Mean Corpuscular Hemoglobin 29.9 28.0-32.0 pg Mean Corpuscular Hemoglobin Concent 34.0 32.0-36.0 g/dL Red Cell Distribution Width 13.7 11.8-14.3 % Platelet Count 250 140-450 10^3/uL Mean Platelet Volume 8.8 6.9-10.8 fL Neutrophils (%) (Auto) 69.5 37.0-80.0 % Lymphocytes (%) (Auto) 21.0 10.0-50.0 % Monocytes (%) (Auto) 8.3 0.0-12.0 % Eosinophils (%) (Auto) 0.7 0.0-7.0 % Basophils (%) (Auto) 0.5 0.0-2.0 % Neutrophils # (Auto) 4.8 1.6-8.6 10 ^3/uL Lymphocytes # (Auto) 1.4 0.4-5.4 10 ^3/uL Monocytes # (Auto) 0.6 0-1.3 10 ^3/uL Eosinophils # (Auto) 0 0-0.8 10 ^3/uL Basophils # (Auto) 0 0-0.2 10 ^3/uL Nucleated Red Blood Cells 0.0 % Sodium Level 139 136-145 mmol/L Potassium Level 3.9 3.5-5.1 mmol/L Chloride Level 105 98-107 mmol/L Carbon Dioxide Level 26 20-31 mmol/L Anion Gap 8 5-15 Blood Urea Nitrogen 15 9-23 mg/dL Creatinine 0.93 0.700-1.30 mg/dL Glomerular Filtration Rate Calc 116 >90 mL/min BUN/Creatinine Ratio 16.1 10.0-20.0 Serum Glucose 120 H 74-106 mg/dL Calcium Level 10.3 8.7-10.4 mg/dL Left shoulder x-ray reviewed and demonstrated: The patient is again noted to be post screw fixation of the glenoid. There is no evidence for acute fracture or dislocation. Assessment Left shoulder pain Plan/Recommendation I had a lengthy discussion with the patient and after discussing his case and reviewing his imaging studies with Dr. Leary we have recommended the patient be referred to higher level of care on an outpatient basis for a revision of his left shoulder Bankart repair due to his continued dislocations and continued cocaine use. Please contact ortho if there are any further questions or concerns. Patient understood and agreed. Thank for allowing us to participate in the care of your patient. Plan discussed with: Patient CECILIO LEAHY Dec 06, 2024 12:43
== END 2024-12-06 14:06 | disposition left against medical advice (07) ==
LOC: ER 23:07
DX: S43.005A Unspecified dislocation of left shoulder joint, initial encounter (principal); R56.9 Unspecified convulsions; F17.210 Nicotine dependence, cigarettes, uncomplicated; Z79.899 Other long term (current) drug therapy; X50.1XXA Overexertion from prolonged static or awkward postures, initial encounter; Y93.89 Activity, other specified; Y92.89 Other specified places as the place of occurrence of the external cause; Y99.8 Other external cause status
CPT/HCPCS: 23650; 36415; 73030; 80048; 85025; 96372; 96374; 96375; 96376; 99152; 99285; J1885; J2003; J2060; J2270; J2405; J2704

== ENCOUNTER 2024-12-12 01:37 | Emergency (ER) | payer MEDICAID ==
[~2024-12-12] VITALS: Ht 177.8 cm; Wt 74.6 kg
[2024-12-12 03:00] VITALS: PULSE 87; RESP 20; O2SAT 96
[2024-12-12] MEDS: HYDROMORPHONE HCL 1 MG/ML INJ IV ONE (03:18)
[2024-12-12] MEDS: ONDANSETRON HCL 4 MG/2 ML VIAL IV ONE ×2 (03:18→05:15)
--- NOTE | 2024-12-12 03:30 | ED.PDOC ---
Musculoskeletal HPI Comments 24-year-old male came to ER for left shoulder pain. Patient has history of seizures and recurrent left shoulder dislocation. Dislocated his left shoulder over 20 times. Possibly had a seizure episode earlier today in landed badly on his left shoulder again. Patient complaining of pain in his left shoulder, possible dislocation. Chief Complaint: Upper Extremity Time Seen by MD: 03:29 Primary Care Provider: [facility] Reviewed Notes: Nurses Notes Allergies: Coded Allergies: NO KNOWN ALLERGIES (Unverified , 04/04/10) Home Meds Active Scripts Levetiracetam (Keppra) 1,000 Mg Tab, 1 TAB PO BID, #60 TAB 5 Refills Prov:JACKELYN SANCHEZ MD 07/13/24 Information Source: Patient Mode of Arrival: Ambulatory Location: Left Extremity Location: Shoulder Timing: Hours Prehospital treatment: None Severity: Moderate Able to Move Extremity: No Bear Weight: Limited Pain: Moderate Hand Dominance: Right Mechanism: Blunt Trauma Circumstances: Sporting Onset of Symptoms: After Trauma Associated signs and symptoms: Shoulder pain (left) Past Medical History PAST MEDICAL HISTORY: Seizures Past Medical History (Other): Recurrent left shoulder dislocation Surgical History: Denies all surgeries Surgical History (Other): Left shoulder surgery Family History Family History: Unknown Social History Smoker: Cigarettes Alcohol: Occasionally Drugs: Marijuana Lives In: Home Constitutional: denies: chills, diaphoresis, fatigue, fever, malaise, sweats, weakness, others EENTM: denies: blurred vision, double vision, ear bleeding, ear discharge, ear drainage, ear pain, ear ringing, eye pain, eye redness, hearing loss, mouth pain, mouth swelling, nasal discharge, nose bleeding, nose congestion, nose pain, photophobia, tearing, throat pain, throat swelling, voice changes, others Respiratory: denies: cough, hemoptysis, orthopnea, SOB at rest, shortness of breath, SOB with excertion, stridor, wheezing, others Cardiovascular: denies: chest pain, dizzy spells, diaphoresis, Dyspnea on exertion, edema, irregular heart beat, left arm pain, lightheadedness, palpitations, PND, syncope, others Gastrointestinal: denies: abdomen distended, abdominal pain, blood streaked bowels, constipated, diarrhea, dysphagia, difficulty swallowing, hematemesis, melena, nausea, poor appetite, poor fluid intake, rectal bleeding, rectal pain, vomiting, others Genitourinary: denies: burning, dysuria, flank pain, frequency, hematuria, incontinence, penile discharge, penile sore, pain, testicle pain, testicle swelling, urgency, others Neurological: reports: seizure; denies: dizziness, fainting, headache, left sided numbness, left sided weakness, numbness, paresthesia, pre-existing deficit, right sided numbness, right sided weakness, speech problems, tingling, tremors, weakness, others Musculoskeletal: reports: joint pain (Left shoulder); denies: back pain, gout, joint swelling, muscle pain, muscle stiffness, neck pain, others Integumetry: denies: bruises, change in color, change in hair/nails, dryness, laceration, lesions, lumps, rash, wounds, others Allergic/Immunocompromised: denies: Difficulty Healing, Frequent Infections, Hives, Itching, others Hematologic/Lymphatic: denies: anemia, blood clots, easy bleeding, easy bruising, swollen glands, others Endocrine: denies: excessive hunger, excessive sweating, excessive thirst, excessive urination, flushing, intolerance to cold, intolerance to heat, unexplained weight gain, unexplained weight loss, others Psychiatric: denies: anxiety, bipolar disorder, depression, hopeless, panic disorder, schizophrenia, sleepless, suicidal, others Physical Exam General Appearance: Moderate Distress, Normal HEENT: Normal ENT Inspection, Pharynx Normal, TMs Normal Neck: Full Range of Motion, Non-Tender, Normal, Normal Inspection Respiratory: Chest Non-Tender, Lungs Clear, No Accessory Muscle Use, No Respiratory Distress, Normal Breath Sounds Cardiovascular: No Edema, No JVD, No Murmur, No Gallop, Normal Peripheral Pulses, Regular Rate/Rhythm Breast Exam: Deferred Gastrointestinal: No Organomegaly, Non Tender, No Pulsatile Mass, Normal Bowel Sounds, Soft Genitalia: Deferred Pelvic: Deferred Rectal: Deferred Extremities: No calf tenderness, Normal capillary refill, Normal inspection, Normal range of motion, Non-tender, No pedal edema Musculoskeletal : Apperance: Normal 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 Was a procedure done?: No Differential Diagnosis EXT Differential Diagnosis: Fracture, Sprain, Dislocation, Strain X-Ray, Labs, Meds, VS Vital Signs Date Time Temp Pulse Resp B/P (MAP) Pulse Ox O2 Delivery O2 Flow Rate FiO2 12/12/24 05:15 115 16 114/67 12/12/24 03:18 87 20 126/73 12/12/24 03:00 87 20 96 Room Air* 0 21 12/12/24 03:00 98.2 87 20 126/73 (90) 96 98.2 12/12/24 01:45 97.7 88 18 112/65 (81) 99 Current Medications Medications (Trade) Dose Ordered Sig/Anuj Route Start Time Stop Time Status Last Admin Hydromorphone HCl (Dilaudid Innjection) 1 mg ONCE ONCE IV 12/12/24 03:15 12/12/24 03:16 DC 12/12/24 03:18 Ondansetron HCl (Zofran) 4 mg ONCE ONCE IV 12/12/24 03:15 12/12/24 03:16 DC 12/12/24 03:18 Lorazepam (Ativan Inj) 1 mg ONCE ONCE IV 12/12/24 04:30 12/12/24 04:31 DC 12/12/24 04:27 Levetiracetam 100 ml @ 400 mls/hr ONCE ONCE IV 12/12/24 04:30 12/12/24 04:44 DC 12/12/24 04:26 Ketorolac Tromethamine (Toradol Injection) 30 mg ONCE ONCE IV 12/12/24 05:00 12/12/24 05:01 DC 12/12/24 05:15 Morphine Sulfate 10 mg ONCE ONCE IV 12/12/24 05:00 12/12/24 05:02 DC 12/12/24 05:15 Ondansetron HCl (Zofran) 4 mg ONCE ONCE IV 12/12/24 05:00 12/12/24 05:02 DC 12/12/24 05:15 Examination: LSHD2 Clinical Indication: LEFT SHOULDER POSSIBLE DISLOCATION Comparison: None. Technique: Two views of left shoulder were performed. Findings: Postoperative metallic fixation screws are noted along humeral head. There is no evidence of acute fracture, dislocation or osseous lesion. The joint spaces are well-maintained. Soft tissues are unremarkable. Impression: No acute osseous or soft tissue abnormality. Electronically Signed The patient has no dislocations or fracture. He had a seizure in the [facility] as a result of not taking his medication. We put him on Keppra and discharge him. Time of 1ST Reevaluation: 03:20 Reevaluation 1ST: Unchanged Patient Education/Counseling: Diagnosis, Treatment Family Education/Counseling: No Family Present Departure 1 Departure Time of Disposition: 05:17 Impression: Primary Impression: Shoulder sprain Qualified Codes: S43.402A - Unspecified sprain of left shoulder joint, initial encounter Additional Impressions: Ground-level fall Seizure Disposition: 01 HOME / SELF CARE / HOMELESS Condition: Stable Additional Instructions: Reassessed patient, vital signs stable. Denies any new symptoms. Patient is able to tolerate PO and ambulate/be mobile at their baseline without concern. Risks and benefits of all medications given or prescribed, if any, discussed. All lab work, imaging and diagnostic studies were reviewed by me. The patient was counseled extensively on my clinical impression, diagnosis, expected course of the disease, and plan, including their follow-up care. Will discharge patient. Patient instructed to follow up with Primary Care Physician within 24-48 hours. Strict return precautions given for further exacerbation of symptoms or for new symptoms. The patient was given the opportunity to ask questions and all questions were answered by myself and the nursing/tech staff. Patient is in agreement with the care plan. The patient verbally expressed understanding of the discharge instructions, including the reasons to return to the Emergency Department. Discharged With: Self Critical Care Note Critical Care Time?: No Stability Stability form required: No Heart Score Heart Score: Heart Score Response (Comments) Value History N/A 0 EKG N/A 0 Age N/A 0 Risk Factors N/A 0 Troponin N/A 0 Total 0 I personally scribed for PATRIZIA MARIN MD ([email or web address]) on 12/12/24 at 03:30. Electronically submitted by Tl Angel ([email or web address]). I personally scribed for PATRIZIA MARIN MD ([email or web address]) on 12/12/24 at 04:58. Electronically submitted by Tl Angel ([email or web address]). PATRIZIA MARIN MD Dec 12, 2024 03:30
[2024-12-12 04:11] VITALS: TEMP 98.2
[2024-12-12 04:17] VITALS: PULSE 102; RESP 17; O2SAT 93
[2024-12-12] MEDS: LORazepam 2MG/ML-1ML VIAL ONE (04:23)
[2024-12-12] MEDS: levETIRAcetam 1000 mg/100ml 100 ML IV ONE (04:26)
[2024-12-12] MEDS: LORazepam 2MG/ML-1ML VIAL IV ONE (04:27)
--- NOTE | 2024-12-12 04:46 | DVH ---
Examination: LSHD2 Clinical Indication: LEFT SHOULDER POSSIBLE DISLOCATION Comparison: None. Technique: Two views of left shoulder were performed. Findings: Postoperative metallic fixation screws are noted along humeral head. There is no evidence of acute fracture, dislocation or osseous lesion. The joint spaces are well-stephanie ntained. Soft tissues are unremarkable. Impression: No acute osseous or soft tissue abnormality. Electronically Signed 12/12/2024 04:46 Toñito Doherty
[2024-12-12] MEDS: MORPHINE SULFATE 4 MG/ML SYR/VIAL IV ONE (05:15)
[2024-12-12] MEDS: KETOROLAC TROMETH 30 MG/ML 1ML VIAL IV ONE (05:15)
[2024-12-12 06:00] VITALS: BP 112/65; PULSE 90; RESP 13; O2SAT 95
== END 2024-12-12 04:19 | disposition short-term general hospital (02) ==
LOC: ER 01:37
DX: S43.402A Unspecified sprain of left shoulder joint, initial encounter (principal); R56.9 Unspecified convulsions; F17.210 Nicotine dependence, cigarettes, uncomplicated; Z79.899 Other long term (current) drug therapy; W18.39XA Other fall on same level, initial encounter; Y93.89 Activity, other specified; Y92.89 Other specified places as the place of occurrence of the external cause; Y99.8 Other external cause status
CPT/HCPCS: 73030; 96374; 96375; 96376; 99285; J1170; J1885; J1953; J2060; J2270; J2405

== ENCOUNTER 2025-01-09 19:21 | Emergency (ER) | payer MEDICAID ==
[~2025-01-09] VITALS: Ht 177.8 cm; Wt 75.5 kg
[2025-01-09] MEDS: OXYCODONE W/ ACETAMINOPHEN 5/325MG TABLET PO ONE (19:52)
--- NOTE | 2025-01-09 20:47 | ED.PDOC ---
Back pain HPI HPI Comments Pt with Hx of Epilepsy reports being at work putting things away, then woke up on the ground, believes he may have had an unwitnessed seizure, states his left shoulder is in pain, obvious deformity and he is unable to move it. Pt reports having surgery on his left shoulder 1 yr ago Chief Complaint: Upper Extremity Time Seen by MD: 19:34 Primary Care Provider: [facility] Reviewed Notes: Nurses Notes, Medications, Allergies Allergies: Coded Allergies: NO KNOWN ALLERGIES (Unverified , 04/04/10) Home Meds Active Scripts Levetiracetam (Keppra) 1,000 Mg Tab, 1 TAB PO BID, #60 TAB 5 Refills Prov:JACKELYN SANCHEZ MD 07/13/24 Mode of Arrival: Ambulatory Past Medical History PAST MEDICAL HISTORY: Seizures Surgical History: Denies all surgeries Family History Family History: Unknown Social History Smoker: Cigarettes Alcohol: Occasionally Drugs: Marijuana Lives In: Home Constitutional: denies: chills, diaphoresis, fatigue, fever, malaise, sweats, weakness, others EENTM: denies: blurred vision, double vision, ear bleeding, ear discharge, ear drainage, ear pain, ear ringing, eye pain, eye redness, hearing loss, mouth pain, mouth swelling, nasal discharge, nose bleeding, nose congestion, nose pain, photophobia, tearing, throat pain, throat swelling, voice changes, others Respiratory: denies: cough, hemoptysis, orthopnea, SOB at rest, shortness of breath, SOB with excertion, stridor, wheezing, others Cardiovascular: denies: chest pain, dizzy spells, diaphoresis, Dyspnea on exertion, edema, irregular heart beat, left arm pain, lightheadedness, palpi tations, PND, syncope, others Gastrointestinal: denies: abdomen distended, abdominal pain, blood streaked bowels, constipated, diarrhea, dysphagia, difficulty swallowing, hematemesis, melena, nausea, poor appetite, poor fluid intake, rectal bleeding, rectal pain, vomiting, others Genitourinary: denies: burning, dysuria, flank pain, frequency, hematuria, incontinence, penile discharge, penile sore, pain, testicle pain, testicle swelling, urgency, others Neurological: denies: dizziness, fainting, headache, left sided numbness, left sided weakness, numbness, paresthesia, pre-existing deficit, right sided numbness, right sided weakness, seizure, speech problems, tingling, tremors, weakness, others Musculoskeletal: reports: others (LEFT SHOULDER PAIN); denies: back pain, gout, joint pain, joint swelling, muscle pain, muscle stiffness, neck pain Integumetry: denies: bruises, change in color, change in hair/nails, dryness, laceration, lesions, lumps, rash, wounds, others Allergic/Immunocompromised: denies: Difficulty Healing, Frequent Infections, Hives, Itching, others Hematologic/Lymphatic: denies: anemia, blood clots, easy bleeding, easy bruising, swollen glands, others Endocrine: denies: excessive hunger, excessive sweating, excessive thirst, excessive urination, flushing, intolerance to cold, intolerance to heat, unexpla ined weight gain, unexplained weight loss, others Psychiatric: denies: anxiety, bipolar disorder, depression, hopeless, panic disorder, schizophrenia, sleepless, suicidal, others Physical Exam General Appearance: No Apparent Distress, Normal HEENT: Normal ENT Inspection, Pharynx Normal, TMs Normal Neck: Full Range of Motion, Non-Tender, Normal, Normal Inspection Respiratory: Chest Non-Tender, Lungs Clear, No Accessory Muscle Use, No Respiratory Distress, Normal Breath Sounds Cardiovascular: No Edema, No JVD, No Murmur, No Gallop, Normal Peripheral Pulses, Regular Rate/Rhythm Breast Exam: Deferred Gastrointestinal: No Organomegaly, Non Tender, No Pulsatile Mass, Normal Bowel Sounds, Soft Genitalia: Deferred Pelvic: Deferred Rectal: Deferred Extremities: Normal capillary refill, Normal inspection, Normal range of motion, Non-tender, No pedal edema Musculoskeletal : Location: Left (MODERATE TENDERNESS ON PALPATION ANTERIOR LEFT SHOULDER. PATIENT UNABLE TO MOVE SHOULDER. 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 Was a procedure done?: Yes Sedation Sedation?: Yes Informed consent obtained: Yes Sedation start time: 00:21 Sedation end time: 00:33 Sedation total time: 12 Minutes Moderate/Procedural Sedation Indication: Procedure (Shoulder dislocation left) Assessment: History and Physical, Consents obtained ASA score: 1 Procedure: Systems Administrator, Pulse Oximetry, Oxygen Saturation, Medications administered Sedation Start Time 00:21 Sedation End Time 00:33 Time spent for Sedation 12 minutes Complications: Monitored during, Monitored after/recovered Risks/benefits/alt described: Yes Notes Patient's shoulder successfully reduced. However patient got up to use the restroom shoulder popped back out of place Back Pain Differential Dx Differential Diagnosis: Fracture, Musculoskeletal Pain X-Ray, Labs, Meds, VS Vital Signs Date Time Temp Pulse Resp B/P (MAP) Pulse Ox O2 Delivery O2 Flow Rate FiO2 01/10/25 03:32 98.0 60 15 110/70 (83) 98 98.0 01/10/25 03:31 60 15 110/70 01/10/25 03:02 67 18 117/67 01/10/25 02:53 64 18 117/67 (84) 98 01/10/25 01:15 98.0 70 15 115/60 (78) 97 98.0 01/10/25 01:00 56 12 114/28 (56) 96 01/10/25 00:55 58 12 111/29 (56) 95 01/10/25 00:50 60 12 106/33 (57) 95 01/10/25 00:45 61 11 110/35 (60) 97 01/10/25 00:43 77 14 94 4.0 36 65 28 99 71 98 01/10/25 00:40 61 11 97/49 (65) 99 01/10/25 00:35 59 10 106/58 (74) 98 01/10/25 00:30 83 12 118/48 (71) 97 01/10/25 00:25 73 12 126/65 (85) 96 01/10/25 00:19 71 13 130/68 (88) 96 01/09/25 23:27 98.1 67 12 113/63 (80) 98 98.1 01/09/25 23:27 67 12 97 Room Air* 0 21 01/09/25 19:39 98.1 77 14 134/82 (99) 95 98.1 Current Medications Medications (Trade) Dose Ordered Sig/Anuj Route Start Time Stop Time Status Last Admin Oxycodone/ Acetaminophen (Percocet 5/ 325MG Tablet) 2 tab ONCE ONCE PO 01/09/25 19:45 01/09/25 19:46 DC 01/09/25 19:52 Morphine Sulfate 1 mg ONCE ONCE IV 01/10/25 03:00 01/10/25 03:01 DC 01/10/25 03:02 X-Ray, Labs, Meds, VS Comment See moderate sedation note. Patient shoulder reduced back in place. Patient got up to use the restroom shoulder popped back out. Patient with chronic shoulder dislocations. Shoulder is unstable we will not remain back in place. Patient will be transferred out for ortho higher level of care. Acceptance [place] by Dr. Hobson. Patient was stable okay to be transported BLS. Patient given morphine 1 mg IV Time of 1ST Reevaluation: 03:48 Reevaluation 1ST: Unchanged Patient Education/Counseling: Diagnosis, Treatment, Prognosis, Need For Follow Up Family Education/Counseling: No Family Present Departure 1 Departure Time of Disposition: 01:44 Impression: Primary Impression: Dislocation of left shoulder joint Qualified Codes: S43.005A - Unspecified dislocation of left shoulder joint, initial encounter Additional Impression: Instability of left shoulder joint Disposition: 01 HOME / SELF CARE / HOMELESS Condition: Stable Discharged With: Self Critical Care Note Critical Care Time?: No Stability Stability form required: TOD Pineda Jan 09, 2025 20:47
--- NOTE | 2025-01-09 21:06 | DVH ---
CLINICAL INDICATION: R/O dislocation TECHNIQUE: 3 views of the left shoulder Comparison: XY L SHOULDER 2+ VIEW XRAY on DOS: 12/12/24, FINDINGS/IMPRESSION: There is anterior and slightly inferior glenohumeral dislocation. No acute fracture is identified. 2 surgical screws again noted. Glenohumeral degenerative changes are noted. Soft tissues are unremarkable.
[2025-01-09 23:27] VITALS: PULSE 67; RESP 12; O2SAT 97
[2025-01-09] MEDS: PROPOFOL 10 MG/ML 20 ML IV ONE (23:30)
[2025-01-10] MEDS: PROPOFOL 10 MG/ML 20 ML IV ONE (00:15)
--- NOTE | 2025-01-10 01:04 | DVH ---
CLINICAL INFORMATION: 24 years old, Male; REDUCED. TECHNIQUE: 1 views of the left shoulder were obtained. COMPARISON: XY L SHOULDER 2+ VIEW XRAY on DOS: 01/09/25, XY L SHOULDER 2+ VIEW XRAY on DOS: 12/12/24, X Y L SHOULDER 2+ VIEW XRAY on DOS: 12/06/24 Findings/ IMPRESSION: Single frontal view of the left shoulder demonstrates interval reduction of the previously notified a nterior dislocation. Surgical screws through the scapula
--- NOTE | 2025-01-10 02:18 | DVH ---
EXAM: XY L SHOULDER 2+ VIEW XRAY HISTORY: DISLOCATION COMPARISON: XY L SHOULDER 1V XRAY on DOS: 01/10/25, XY L SHOULDER 2+ VIEW XRAY on DOS: 01/09/25, XY L S HOULDER 2+ VIEW XRAY on DOS: 12/12/24 TECHNIQUE: 3 views of the left shoulder were performed. IMPRESSION: 2 pins are noted superimposing the right humeral head and glenoid. There is suspected anterior disloc ation of the humeral head in relation to the glenoid. Bony remodeling of the humerus is noted without acute fracture.
[2025-01-10] MEDS: MORPHINE SULFATE INJ 2 MG/ml SYRG IV ONE (03:02)
[2025-01-10 03:32] VITALS: BP 110/70; PULSE 60; RESP 15; TEMP 98; O2SAT 98
== END 2025-01-10 04:01 | disposition short-term general hospital (02) ==
LOC: ER 19:21 → EEVIPCON 19:21 → ER 23:59
DX: S43.005A Unspecified dislocation of left shoulder joint, initial encounter (principal); M25.312 Other instability, left shoulder; R56.9 Unspecified convulsions; F17.210 Nicotine dependence, cigarettes, uncomplicated; F12.90 Cannabis use, unspecified, uncomplicated; X58.XXXA Exposure to other specified factors, initial encounter; Y93.89 Activity, other specified; Y92.89 Other specified places as the place of occurrence of the external cause; Y99.8 Other external cause status
CPT/HCPCS: 23650; 73020; 73030; 96374; 99152; 99285; J2270; J2704

== ENCOUNTER 2025-01-26 16:45 | Emergency (ER) | payer MEDICAID ==
[~2025-01-26] VITALS: Ht 172.7 cm; Wt 71.4 kg
[2025-01-26 17:17] LABS: Urine Bacteria None Seen /hpf (None Seen)
[2025-01-26 17:47] LABS: Cannabinoid Screen, Urine Pos (NEGATIVE); Opiate Scree,Urine Neg (NEGATIVE)
[2025-01-26 17:54] LABS: Basophils # (auto) 0 10 ^3/uL (0-0.2); Basophils % (auto) 0.6 % (0.0-2.0); Eosinophils # (auto) 0.1 10 ^3/uL (0-0.8); Eosinophils % (auto) 2.8 % (0.0-7.0); Hematocrit 47.4 % (41.0-53.0); Hemoglobin 16.3 g/dL (13.5-17.5); Lymphocytes # (auto) 1.1 10 ^3/uL (0.4-5.4); Lymphocytes % (auto) 22.4 % (10.0-50.0); Mean Corpuscular Hemoglobin 29.9 pg (28.0-32.0); Mean Corpuscular Hgb Conc. 34.3 g/dL (32.0-36.0); Monocytes # (auto) 0.4 10 ^3/uL (0-1.3); Neutrophils # (auto) 3.2 10 ^3/uL (1.6-8.6); Neutrophils % (auto) 65.2 % (37.0-80.0); Nucleated Red Blood Cells % 0.2 %; Platelet Count (auto) 381 10^3/uL (140-450); Red Blood Cells 5.46 10^6/uL (4.5-5.90); Red Cell Distribution Width 13.8 % (11.8-14.3); White Blood Cell 4.9 10^3/uL (4.4-10.8)
--- NOTE | 2025-01-26 18:06 | DVH ---
CLINICAL INDICATION: LEFT SHOULDER TECHNIQUE: 2 radiographic views of the left shoulder were obtained. Comparison: XY L SHOULDER 2+ VIEW XRAY on DOS: 01/10/25, XY L SHOULDER 1V XRAY on DOS: 01/10/25, XY L S HOULDER 2+ VIEW XRAY on DOS: 01/09/25 FINDINGS/IMPRESSION: There is no evidence of acute fracture or dislocation. 2 screws are noted overlying the humeral head and glenoid. Moderate to severe degenerative changes of the left glenohumeral joint. The alignment is anatomical. 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
[2025-01-26 18:09] LABS: Amphetamine Screen, Urine Neg (NEGATIVE); Barbiturate Scree,Urine Neg (NEGATIVE); Benzodiazephine Screen, Urine Neg (NEGATIVE); Cocaine Screen, Urine Neg (NEGATIVE); Phencyclidine Screen, Urine Neg (NEGATIVE)
--- NOTE | 2025-01-26 18:10 | DVH ---
EXAM: CT Head Without Intravenous Contrast CLINICAL INDICATION: SYNCOPAL/SZ TECHNIQUE: Axial computed tomography images of the head/brain without intravenous contrast. This CT exam was performed using one or more of the following dose reduction techniques: automated exposure control, adjustment of the mA and/or kV according to patient size, and/or use of iterative reconstru ction technique. CONTRAST: RADIATION DOSE: CTDIvol = 58.75 mGy, DLP = 1040.27 mGy-cm COMPARISON: CT HEAD WITHOUT CONTRAST on DOS: 11/20/24, CT HEAD WITHOUT CONTRAST on DOS: 08/26/24, CT HEAD WITHOUT CONTRAST on DOS: 07/12/24, CT HEAD WITHOUT CONTRAST on DOS: 07/05/24, CT HEAD WITHOUT CONT RAST on DOS: 07/20/23 FINDINGS: BRAIN AND EXTRA-AXIAL SPACES: No acute intracranial hemorrhage, midline shift or mass effect. If sy mptoms persist, further evaluation with MRI is recommended. No significant white matter disease. BONES/JOINTS: Unremarkable. No acute fracture. SOFT TISSUES: Unremarkable. SINUSES: Unremarkable as visualized. No acute sinusitis. MASTOID AIR CELLS: Unremarkable as visualized. No mastoid effusion. OTHER FINDINGS: . IMPRESSION: No acute intracranial hemorrhage, midline shift or mass effect. If symptoms persist, further evaluat ion with MRI is recommended.
[2025-01-26 18:12] LABS: Urine Blood Negative /uL (Negative); Urine Clarity Clear (Clear); Urine Color Light-Yellow (Yellow); Urine Protein, UAD Negative (Negative); Urine Specific Gravity 1.013 (1.001-1.035); Urine Sperm PRESENT /hpf (None Seen); Urine Squamous Epithelial Cell FEW /hpf (<5); Urine Urobilinogen Normal (Negative); Urine WBC 3 /HPF (0-3); Urine pH 6.5 (5.0-9.0)
[2025-01-26] MEDS ORDERED: levETIRAcetam 1000 mg/100ml 100 ML IV ONE (18:15)
[2025-01-26 18:17] LABS: Alanine Aminotransferase 33 U/L (7-40); Alkaline Phosphatase 92 U/L (46-116); Carbon Dioxide 23 mmol/L (20-31); Chloride 103 mmol/L (98-107); Glucose 100 mg/dL (74-106); Potassium 4.5 mmol/L (3.5-5.1)
[2025-01-26 18:18] LABS: Anion Gap 11 (5-15); Aspartate Aminotransferase 20 U/L (13-40); BUN/Creatinine Ratio 13.3 (10.0-20.0); Bilirubin, Total 0.3 mg/dL (0.2-1.0); Blood Urea Nitrogen 11 mg/dL (9-23); Creatine Kinase IFCC 82 U/L (46-171); Sodium 137 mmol/L (136-145); Total Protein 7.8 g/dL (5.7-8.2)
[2025-01-26 18:19] LABS: Albumin 5.1 g/dL (3.2-4.8); Calcium 10.5 mg/dL (8.7-10.4)
[2025-01-26 18:24] LABS: Lactic Acid w/Reflex 2.5 mmol/L (0.4-2.0)
--- NOTE | 2025-01-26 18:32 | ED.PDOC ---
HPI (NEURO) HPI Comments HPI: 24 y/o M, with PMHX of epilepsy presents to the ED for CC of s/p seizure. Patient states, that he had a possible seizure at 1600 today (01/26/25) resulting in his left upper are to become dislocated. Patient relays, that he is unsure if it was a seizure due to him remembering getting out of the shower, changing, and walking to the kitchen prior to trauma. Patient endorses, being compliant with his Keppra bid. Patient comments on,smoking marijuana and recently using cocaine x1 week ago; denies ETOH consumption. No other symptoms or modifying factors at this time. Patient states compliance with his Keppra medication. He takes 1000 mg b.i.d. VITALS: T:98.4 RR:20 HR:94 BP:123/72 O2:97 Past Medical History: seizures, cocaine abuse, marijuana abuse Past surgical history: Left shoulder surgery WOOD: HPI: Poor Historian. REVIEW OF SYSTEMS: CONSTITUTIONAL: Denies acute: fever, diaphoresis, chills, generalized weakness. HEAD: Denies acute: headache, photophobia Eyes: Denies acute: Double vision, vision loss, eye pain, eye discharge. EARS: Denies acute: tinnitus, hearing loss, ear discharge, ear pain, THROAT: Denies acute: sore throat, swelling, difficulty swallowing , pain with swallowing, change in voice. NECK: Denies acute: neck pain, neck swelling, stiff neck. HEART: Denies acute : chest pain, palpitations, LUNGS: Denies acute: SOB, wheezing, cough, hemoptysis ABDOMEN: Denies acute: abdominal pain, Nausea, Vomiting, diarrhea, melena , hematemesis, hematochezia SKIN: Denies acute: rash, redness, lesions, itchiness. EXTREMITIES: Denies acute: calf pain, numbness, tingling, weakness, Denies acute: Low back pain. Neuro: Denies acute: focal neurological deficit, motor or sensory focal neurological deficit, tremors, confusion, dizziness, change in mental status, loss of bowel or bladder function, cauda equina like symptoms. : Denies acute: dysuria, hematuria, flank pain, increase in urinary frequency. PSYCH: Denies acute: hallucination, suicidal ideation, homicidal ideation. PHYSICAL EXAM: General: ----mild----acute distress, awake and alert. Head: normocephalic, atraumatic. Neck: supple, trachea is midline, no swelling. Throat: Normal phonation. Eyes:, no erythema, no purulent discharge, no proptosis, no icterus. Heart: regular rate, regular rhythm, no significant murmur appreciated. Lungs: no apparent respiratory distress, Able to speak in full sentences. No wheezing, no rhonchi, no crackles. No stridors Clear to auscultation bilaterally. Abdomen: non tender to palpation, non distended, soft, no guarding, no rebound, + bowel sounds. Neuro: Awake, Alert, oriented to name, self, situation, follows commands GCS=15. Speech is normal. Skin: no petechia, no purpura, no cyanosis, non-pale, not jaundice. Lower extremities: --no - Pitting edema no deformity, no focal swelling, no calf TTP. Makes eye contact. moves all four extremities. Face: no apparent facial droop. Ambulating in the ED independently. Evaluation of the left upper extremity: decreased range of motion of the left shoulder secondary to pain. Patient is neurovascularly intact in the affected extremity. Radial pulses palpable. Sensory and motor are present. Good marine diver muscle. No nuchal rigidity, Kernig's sign, Brudzinski's sign, no meningeal signs. ED COURSE: Chief Complaint: Syncope Time Seen by MD: 18:00 Primary Care Provider: IEHP Reviewed Notes: Nurses Notes, Medications, Allergies Information Source: Patient Mode of Arrival: Ambulatory Severity: Moderate Headache Severity: None Timing: Hours Duration: Since onset Prehospital treatment: None Seizure Quality: Mulitple Episodes Seizure Location: Generalized Onset: With light exertion Circumstances: Spontaneous Symptoms: None Before: Normal During: Awake History of: Seizure Disorder Modifying factors: Nothing Associated Signs and Symptoms: None Was a procedure done? Was a procedure done?: No Differential Diagnosis (SZ) Seizure: Other (SEIZUREDDX include not limited to CVA, cerebellar ischemia/infarct, carotid stenosis, vertebral/carotid artery dissection,, vertebrobasillary insufficiency, Intracranial mass/infection/bleed, encephalopathy, elctrolyte abnormality, thyroid disease, multiple sclerosis, hypoglycemia, drug toxicity, cardiac arrhythmia, sub-theraputic anti-convulsion medications, known seizure disorder, pseudo-seizure.) X-Ray, Labs, Meds, VS Vital Signs Date Time Temp Pulse Resp B/P (MAP) Pulse Ox O2 Delivery O2 Flow Rate FiO2 01/26/25 17:10 86 01/26/25 17:01 98.4 94 20 123/72 (89) 97 98.4 Lab Test 01/26/25 19:23 01/26/25 17:37 01/26/25 17:15 01/26/25 17:04 Range/Units Lactic Acid Level 1.3 2.5 *H 0.4-2.0 mmol/L White Blood Count 4.9 4.4-10.8 10^3/uL Red Blood Count 5.46 4.5-5.90 10^6/uL Hemoglobin 16.3 13.5-17.5 g/dL Hematocrit 47.4 41.0-53.0 % Mean Corpuscular Volume 87.0 80.0-100.0 fL Mean Corpuscular Hemoglobin 29.9 28.0-32.0 pg Mean Corpuscular Hemoglobin Concent 34.3 32.0-36.0 g/dL Red Cell Distribution Width 13.8 11.8-14.3 % Platelet Count 381 140-450 10^3/uL Mean Platelet Volume 7.7 6.9-10.8 fL Neutrophils (%) (Auto) 65.2 37.0-80.0 % Lymphocytes (%) (Auto) 22.4 10.0-50.0 % Monocytes (%) (Auto) 9.0 0.0-12.0 % Eosinophils (%) (Auto) 2.8 0.0-7.0 % Basophils (%) (Auto) 0.6 0.0-2.0 % Neutrophils # (Auto) 3.2 1.6-8.6 10 ^3/uL Lymphocytes # (Auto) 1.1 0.4-5.4 10 ^3/uL Monocytes # (Auto) 0.4 0-1.3 10 ^3/uL Eosinophils # (Auto) 0.1 0-0.8 10 ^3/uL Basophils # (Auto) 0 0-0.2 10 ^3/uL Nucleated Red Blood Cells 0.2 % Sodium Level 137 136-145 mmol/L Potassium Level 4.5 3.5-5.1 mmol/L Chloride Level 103 98-107 mmol/L Carbon Dioxide Level 23 20-31 mmol/L Anion Gap 11 5-15 Blood Urea Nitrogen 11 9-23 mg/dL Creatinine 0.83 0.700-1.30 mg/dL Glomerular Filtration Rate Calc 124 >90 mL/min BUN/Creatinine Ratio 13.3 10.0-20.0 Serum Glucose 100 74-106 mg/dL Calcium Level 10.5 H 8.7-10.4 mg/dL Total Bilirubin 0.3 0.2-1.0 mg/dL Aspartate Amino Transferase (AST) 20 13-40 U/L Alanine Aminotransferase (ALT) 33 7-40 U/L Alkaline Phosphatase 92 46-116 U/L Creatine Kinase 82 46-171 U/L Total Protein 7.8 5.7-8.2 g/dL Albumin 5.1 H 3.2-4.8 g/dL Urine Color Light-yellow Yellow Urine Clarity Clear Clear Urine pH 6.5 5.0-9.0 Urine Specific [place] 1.013 1.001-1.035 Urine Protein Negative Negative Urine Ketones Negative Negative Urine Blood Negative Negative /uL Urine Nitrite Negative Negative Urine Bilirubin Negative Negative Urine Urobilinogen Normal Negative mg/dL Urine Leukocyte Esterase Negative Negative /uL Urine RBC 1 0 - 3 /hpf Urine Microscopic WBC 3 0-3 /HPF Urine Squamous Epithelial Cells Few <5 /hpf Urine Bacteria None seen None Seen /hpf Urine Sperm Present None Seen /hpf Urine Glucose Normal Normal mg/dL Urine Opiates Screen Neg NEGATIVE Urine Fentanyl Screen Neg NEGATIVE Urine Barbiturates Screen Neg NEGATIVE Urine Phencyclidine Screen Neg NEGATIVE Urine Amphetamines Screen Neg NEGATIVE Urine Benzodiazepines Screen Neg NEGATIVE Urine Cocaine Screen Neg NEGATIVE Urine Cannabinoids Screen Pos NEGATIVE POC Glucose 109 H 70-106 mg/dl [facility] [id number] [place] [id number] Ph: [phone] DIAGNOSTIC IMAGING Diagnostic Imaging Report : [id number] Signed PATIENT: NEW OLMSTEAD ACCT: [id number] UNIT: [id number] : 2000 LOC: ER ROOM / BED: / AGE / SEX: 24 / M ADM STATUS: REG ER SERVICE [id number] ORDERING PHYSICIAN: SHERLYN PIÑA DO PROCEDURE(s): LSHD2 - L SHOULDER 2+ VIEW XRAY REASON: LEFT SHOULDER ORDER NUMBER(s): [id number], ACCESSION NUMBER(s): [id number] CLINICAL INDICATION: LEFT SHOULDER TECHNIQUE: 2 radiographic views of the left shoulder were obtained. Comparison: XY L SHOULDER 2+ VIEW XRAY on DOS: 01/10/25, XY L SHOULDER 1V XRAY on DOS: 01/10/25, XY L SHOULDER 2+ VIEW XRAY on DOS: 01/09/25 FINDINGS/IMPRESSION: There is no evidence of acute fracture or dislocation. 2 screws are noted overlying the humeral head and glenoid. Moderate to severe degenerative changes of the left glenohumeral joint. The alignment is anatomical. Partially imaged 1.8 cm density overlying the left medial lower lung zone which is most likely external to the patient ATED BY: DONYA AZAR DO DICTATED DATE/TIME: 01/26/251803 SIGNED BY: DONYA AZAR DO SIGNED DATE/TIME: 01/26/251803 CC: [place] [id number] Ph: [phone] DIAGNOSTIC IMAGING Diagnostic Imaging Report : [id number] Signed PATIENT: NEW OLMSTEAD ACCT: [id number] UNIT: [id number] : 2000 LOC: ER ROOM / BED: / AGE / SEX: 24 / M ADM STATUS: REG ER SERVICE [id number] ORDERING PHYSICIAN: SHERLYN PIÑA DO PROCEDURE(s): HWOCT - HEAD WITHOUT CONTRAST REASON: SYNCOPAL/SZ ORDER NUMBER(s): [id number], ACCESSION NUMBER(s): [id number] EXAM: CT Head Without Intravenous Contrast CLINICAL INDICATION: SYNCOPAL/SZ TECHNIQUE: Axial computed tomography images of the head/brain without intravenous contrast. This CT exam was performed using one or more of the following dose reduction techniques: automated exposure control, adjustment of the mA and/or kV according to patient size, and/or use of iterative reconstruction technique. CONTRAST: RADIATION DOSE: CTDIvol = 58.75 mGy, DLP = 1040.27 mGy-cm COMPARISON: CT HEAD WITHOUT CONTRAST on DOS: 11/20/24, CT HEAD WITHOUT CONTRAST on DOS: 08/26/24, CT HEAD WITHOUT CONTRAST on DOS: 07/12/24, CT HEAD WITHOUT CONTRAST on DOS: 07/05/24, CT HEAD WITHOUT CONTRAST on DOS: 07/20/23 FINDINGS: BRAIN AND EXTRA-AXIAL SPACES: No acute intracranial hemorrhage, midline shift or mass effect. If symptoms persist, further evaluation with MRI is recommended. No significant white matter disease. BONES/JOINTS: Unremarkable. No acute fracture. SOFT TISSUES: Unremarkable. SINUSES: Unremarkable as visualized. No acute sinusitis. MASTOID AIR CELLS: Unremarkable as visualized. No mastoid effusion. OTHER FINDINGS: . IMPRESSION: No acute intracranial hemorrhage, midline shift or mass effect. If symptoms persist, further evaluation with MRI is recommended. ATED BY: JAGDEEP BYRD MD DICTATED DATE/TIME: 01/26/251807 SIGNED BY: JAGDEEP BYRD MD SIGNED DATE/TIME: 01/26/251807 CC: [place] [id number] Ph: [phone] DIAGNOSTIC IMAGING Diagnostic Imaging Report : [id number] Signed PATIENT: NEW OLMSTEAD ACCT: [id number] UNIT: [id number] : 2000 LOC: ER ROOM / BED: / AGE / SEX: 24 / M ADM STATUS: REG ER SERVICE 02 ORDERING PHYSICIAN: SHERLYN PIÑA DO PROCEDURE(s): CXRP - CHEST PORTABLE REASON: ORDER NUMBER(s): [id number], ACCESSION NUMBER(s): [id number] EXAMINATION: AP portable chest radiograph CLINICAL HISTORY: COMPARISON: XY CHEST XRAY 1 VIEW on DOS: 07/05/24 FINDINGS: No dominant consolidation. The costophrenic angles appear clear. No sizable pleural effusion or pneumothorax identified. The cardiomediastinal silhouette appears within normal limits given technique. IMPRESSION: No acute cardiopulmonary findings as visualized. ATED BY: JARRETT MCKEON MD DICTATED DATE/TIME: 01/26/251829 SIGNED BY: JARRETT MCKEON MD SIGNED DATE/TIME: 01/26/251829 CC: Time of 1ST Reevaluation: 18:30 Reevaluation 1ST: Unchanged Patient Education/Counseling: Diagnosis, Treatment Family Education/Counseling: Other Comments Patient presented with the above HPI.---possible seizure/left shoulder injury---workup was initiated. patient was found with the above mentioned diagnosis. the following medications were ordered: please refer to order lists of meds and tests obtained by myself Dr. Piña. Patient ED course and VS have been stabilized. Patient has been reassessed in the ED and remained in a stable condition. Pertinent incidental findings were discussed with the patient and/or family. Patient/family voices understanding and is agreeable with plan. Patient has been observed in the ED adequate length of time to insure improvement/stability. Escalation of care considered: Consideration of escalation to observation or admission Patient is not postictal. Patient is at his baseline neurologically. Patient has history of compliance with his medications. He also has history of drug abuse. Patient was given a dose of Keppra here in the ED. imaging studies reveals no dislocation or fracture. Patient was placed in a shoulder sling for comfort and support. Patient was DISCHARGED home in a stable condition. All the reports of any imaging studies that were ordered by myself were reviewed by myself. Departure 1 Departure Time of Disposition: 20:05 Impression: Primary Impression: Injury of left shoulder Additional Impression: Breakthrough seizure Disposition: 01 HOME / SELF CARE / HOMELESS Condition: Stable Additional Instructions: Additional discharge instructions: You MUST follow-up with your primary care/family doctor in 1 to 2 days. If you are unable to see your primary care/family doctor, please return to our emergency room for re-assessment and re-evaluation in 1 to 2 days. Return to the emergency room here in our facility or to the nearest ER [facility] if your symptoms change or worsen. CONSULTATIONS: you MUST Follow-up for consultation as soon as possible with: -neurology and orthopedic doctor in 1-2 days. Please call for appointment. You MUST call the consultants office yourself to make an appointment. You may need to arrange that through your insurance and/or your primary/family doctor. If you are unable to see the outside solar sales consultant in 1 to 2 days, you must return to our emergency room (or any other ER of your choice) for re-assessment and re- evaluation. Adequate fluid hydration. Abstain from drugs. Continue wear your sling until you see your orthopedic doctor. Below is a copy of your radiological report for follow up: [place] [phone] Ph: [phone] DIAGNOSTIC IMAGING Diagnostic Imaging Report : [id number] Signed PATIENT: NEW OLMSTEAD ACCT: [id number] UNIT: [id number] : 2000 LOC: ER ROOM / BED: / AGE / SEX: 24 / M ADM STATUS: REG ER SERVICE 165 ORDERING PHYSICIAN: SHERLYN PIÑA DO PROCEDURE(s): LSHD2 - L SHOULDER 2+ VIEW XRAY REASON: LEFT SHOULDER ORDER NUMBER(s): [id number], ACCESSION NUMBER(s): [id number] CLINICAL INDICATION: LEFT SHOULDER TECHNIQUE: 2 radiographic views of the left shoulder were obtained. Comparison: XY L SHOULDER 2+ VIEW XRAY on DOS: 01/10/25, XY L SHOULDER 1V XRAY on DOS: 01/10/25, XY L SHOULDER 2+ VIEW XRAY on DOS: 01/09/25 FINDINGS/IMPRESSION: There is no evidence of acute fracture or dislocation. 2 screws are noted overlying the humeral head and glenoid. Moderate to severe degenerative changes of the left glenohumeral joint. The alignment is anatomical. Partially imaged 1.8 cm density overlying the left medial lower lung zone which is most likely external to the patient ATED BY: DONYA AZAR DO DICTATED DATE/TIME: 01/26/251803 SIGNED BY: DONYA AZAR DO SIGNED DATE/TIME: 01/26/251803 CC: [address] [id number] Ph: [phone] DIAGNOSTIC IMAGING Diagnostic Imaging Report : [id number] Signed PATIENT: NEW OLMSTEAD ACCT: [id number] UNIT: [id number] : 2000 LOC: ER ROOM / BED: / AGE / SEX: 24 / M ADM STATUS: REG ER SERVICE 1659 ORDERING PHYSICIAN: SHERLYN PIÑA DO PROCEDURE(s): HWOCT - HEAD WITHOUT CONTRAST REASON: SYNCOPAL/SZ ORDER NUMBER(s): [id number], ACCESSION NUMBER(s): [id number] EXAM: CT Head Without Intravenous Contrast CLINICAL INDICATION: SYNCOPAL/SZ TECHNIQUE: Axial computed tomography images of the head/brain without intravenous contrast. This CT exam was performed using one or more of the following dose reduction techniques: automated exposure control, adjustment of the mA and/or kV according to patient size, and/or use of iterative reconstruction technique. CONTRAST: RADIATION DOSE: CTDIvol = 58.75 mGy, DLP = 1040.27 mGy-cm COMPARISON: CT HEAD WITHOUT CONTRAST on DOS: 11/20/24, CT HEAD WITHOUT CONTRAST on DOS: 08/26/24, CT HEAD WITHOUT CONTRAST on DOS: 07/12/24, CT HEAD WITHOUT CONTRAST on DOS: 07/05/24, CT HEAD WITHOUT CONTRAST on DOS: 07/20/23 FINDINGS: BRAIN AND EXTRA-AXIAL SPACES: No acute intracranial hemorrhage, midline shift or mass effect. If symptoms persist, further evaluation with MRI is recommended. No significant white matter disease. BONES/JOINTS: Unremarkable. No acute fracture. SOFT TISSUES: Unremarkable. SINUSES: Unremarkable as visualized. No acute sinusitis. MASTOID AIR CELLS: Unremarkable as visualized. No mastoid effusion. OTHER FINDINGS: . IMPRESSION: No acute intracranial hemorrhage, midline shift or mass effect. If symptoms persist, further evaluation with MRI is recommended. ATED BY: JAGDEEP BYRD MD DICTATED DATE/TIME: 01/26/251807 SIGNED BY: JAGDEEP BYRD MD SIGNED DATE/TIME: 01/26/251807 CC: [place] [id number] Ph: [phone] DIAGNOSTIC IMAGING Diagnostic Imaging Report : [id number] Signed PATIENT: NEW OLMSTEAD ACCT: [id number] UNIT: [id number] : 2000 LOC: ER ROOM / BED: / AGE / SEX: 24 / M ADM STATUS: REG ER SERVICE 02 ORDERING PHYSICIAN: SHERLYN PIÑA DO PROCEDURE(s): CXRP - CHEST PORTABLE REASON: SZ ORDER NUMBER(s): [id number], ACCESSION NUMBER(s): [id number] EXAMINATION: AP portable chest radiograph CLINICAL HISTORY: SZ COMPARISON: XY CHEST XRAY 1 VIEW on DOS: 07/05/24 FINDINGS: No dominant consolidation. The costophrenic angles appear clear. No sizable pleural effusion or pneumothorax identified. The cardiomediastinal silhouette appears within normal limits given technique. IMPRESSION: No acute cardiopulmonary findings as visualized. ATED BY: JARRETT MCKEON MD DICTATED DATE/TIME: 01/26/251829 SIGNED BY: JARRETT MCKEON MD SIGNED DATE/TIME: 01/26/251829 CC: Discharged With: Self Critical Care Note Critical Care Time?: No Heart Score Heart Score: Heart Score Response (Comments) Value History N/A 0 EKG N/A 0 Age N/A 0 Risk Factors N/A 0 Troponin N/A 0 Total 0 I personally scribed for SHERLYN PIÑA DO ([email or web address]) on 01/26/25 at 18:32. Electronically submitted by Ara Ryder ([email or web address]). I personally scribed for SHERLYN PIÑA DO ([email or web address]) on 01/26/25 at 19:48. Electronically submitted by Ara Ryder ([email or web address]). SHERLYN PIÑA DO Jan 26, 2025 18:32
[2025-01-26] MEDS ORDERED: SODIUM CHLORIDE 0.9% 1,000 ML IV ONE (18:45)
[2025-01-26 22:31] VITALS: BP 121/71; TEMP 97.7
[2025-01-26 22:32] VITALS: PULSE 73; RESP 16; O2SAT 96
[2025-01-26] MEDS: HYDROcodone-ACET 5/325MG TAB PO ONE (22:51)
[2025-01-26] MEDS: levETIRAcetam 500 MG TAB PO ONE (22:55)
--- NOTE | 2025-01-28 07:12 | ECG ---
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
== END 2025-01-26 23:00 | disposition home or self-care (01) ==
LOC: ER 16:45
DX: S49.82XA Other specified injuries of left shoulder and upper arm, initial encounter (principal); G40.909 Epilepsy, unspecified, not intractable, without status epilepticus; F12.90 Cannabis use, unspecified, uncomplicated; F19.11 Other psychoactive substance abuse, in remission; Z98.890 Other specified postprocedural states; X58.XXXA Exposure to other specified factors, initial encounter; Y93.89 Activity, other specified; Y92.89 Other specified places as the place of occurrence of the external cause; Y99.8 Other external cause status
CPT/HCPCS: 36415; 70450; 71045; 73030; 80053; 80307; 81001; 82550; 82947; 82962; 83605; 85025; 93005

== ENCOUNTER 2025-02-04 00:24 | Inpatient (IN) | payer MEDICAID ==
[~2025-02-04] VITALS: Ht 177.8 cm; Wt 72.3 kg
[2025-02-04] VITALS (7 sets, daily range): BP systolic 96–156; BP diastolic 42–79; PULSE 63–122; RESP 16–20; TEMP 97.8–98.3; O2SAT 95–98
--- NOTE | 2025-02-04 01:24 | ED.PDOC ---
Musculoskeletal HPI Comments 24-year-old male who came to emergency room due to left shoulder dislocation. Patient has history of seizures and recurrent left shoulder dislocation. Patient takes his Keppra 2500 mg daily in 3 divided doses. Had 2 episodes of seizures today, last episode was 30 minutes prior to arrival wherein he fell and he dislocated his left shoulder again. No other injuries noted. Chief Complaint: Upper Extremity Time Seen by MD: 01:22 Primary Care Provider: n/a Reviewed Notes: Nurses Notes Allergies: Coded Allergies: NO KNOWN ALLERGIES (Unverified , 04/04/10) Home Meds Active Scripts Levetiracetam (Keppra) 1,000 Mg Tab, 1 TAB PO BID, #60 TAB 5 Refills Prov:JACKELYN SANCHEZ MD 07/13/24 Information Source: Patient Mode of Arrival: Ambulatory Location: Left Extremity Location: Shoulder Timing: Minutes Prehospital treatment: None Severity: Moderate Able to Move Extremity: No Bear Weight: Limited Pain: Moderate Hand Dominance: Right Mechanism: Blunt Trauma Circumstances: Fall, Accident Onset of Symptoms: After Trauma Symptoms: Swelling Associated signs and symptoms: Shoulder pain (left) Review of Systems REVIEW OF SYSTEMS: No fever, no chills, or fatigue HEENT: No sore throat, no earache, no congestion, no neck pain. Cardiac: No chest pain. No palpitations. Lungs: No shortness of breath, no cough. GI: No nausea, no vomiting, no diarrhea, no constipation, no abdominal pain : No dysuria, frequency, or urgency. No hematuria. Musculoskeletal: (+) left shoulder pain , no joint swelling, no extremity edema. Skin: No rash, no itching. Neuro: No headache, no dizziness, no weakness Vital Signs Vital Signs Date Time Temp Pulse Resp B/P (MAP) Pulse Ox O2 Delivery O2 Flow Rate FiO2 02/04/25 03:22 98.2 108 19 112/87 (95) 97 98.2 02/04/25 02:13 Room Air* 0 21 Physical Exam General: Awake, alert and oriented. No acute distress. Skin: Skin in warm, dry and intact. Appropriate color for ethnicity. Nailbeds pink with no cyanosis. HEENT: The head is normocephalic and atraumatic. Conjunctivae are clear without exudates or hemorrhage. Sclera is non-icteric. EOM are intact. No signs of nystagmus. Eyelids are normal in appearance without swelling or lesions. Oral mucosa is pink and moist Neck: The neck is supple with normal range of motion. No JVD. Cardiac: Heart rate and rhythm are normal. No murmurs, gallops, or rubs are auscultated. Respiratory: No signs of respiratory distress. Lung sounds are clear in all lobes bilaterally without rales, rhonchi, or wheezes. Abdominal: Abdomen is soft, non-tender without distention. Bowel sounds are present and normoactive in all four quadrants. Extremities: Upper and lower extremities are atraumatic in appearance without deformity or edema. Neurological: The patient is awake, alert and oriented to person, place, and time with normal speech. Speech is clear. There is no facial asymmetry. Psychiatric: Appropriate mood and affect. Good judgement and insight. No visual or auditory hallucinations. Past Medical History PAST MEDICAL HISTORY: Seizures Past Medical History (Other): Recurrent left shoulder dislocation Surgical History: Denies all surgeries Surgical History (Other): Left shoulder surgery Family History Family History: Reviewed,noncontributory to illness Social History Smoker: Cigarettes Alcohol: Occasionally Drugs: Marijuana Lives In: Home Was a procedure done? Was a procedure done?: Yes Sedation Sedation?: Yes Informed consent obtained: Yes Sedation start time: 03:08 Sedation end time: 03:20 Sedation total time: 12 Reduction Indication: Dislocation (Left shoulder) Sedation: Consents obtained, Sedation as ordered Post-reduction x-ray show: Poor Alignment Informed consent obtained: Yes Risks/benefits/alt described: Yes Differential Diagnosis EXT Differential Diagnosis: Fracture, Sprain, Dislocation, Strain X-Ray, Labs, Meds, VS Vital Signs Date Time Temp Pulse Resp B/P (MAP) Pulse Ox O2 Delivery O2 Flow Rate FiO2 02/04/25 03:22 98.2 108 19 112/87 (95) 97 98.2 02/04/25 03:17 98.2 111 18 118/64 (82) 100 98.2 02/04/25 03:12 98.2 122 19 127/88 (101) 97 98.2 02/04/25 03:07 98.1 107 18 112/62 (79) 97 98.1 02/04/25 02:13 122 19 97 Room Air* 0 21 02/04/25 02:12 98.2 122 18 122/64 (83) 19 98.2 02/04/25 00:32 99.3 118 14 105/80 (88) 94 99.3 Lab Test 02/04/25 02:10 Range/Units White Blood Count 7.9 4.4-10.8 10^3/uL Red Blood Count 4.88 4.5-5.90 10^6/uL Hemoglobin 14.4 13.5-17.5 g/dL Hematocrit 43.3 41.0-53.0 % Mean Corpuscular Volume 88.8 80.0-100.0 fL Mean Corpuscular Hemoglobin 29.6 28.0-32.0 pg Mean Corpuscular Hemoglobin Concent 33.3 32.0-36.0 g/dL Red Cell Distribution Width 13.9 11.8-14.3 % Platelet Count 382 140-450 10^3/uL Mean Platelet Volume 7.5 6.9-10.8 fL Neutrophils (%) (Auto) 68.0 37.0-80.0 % Lymphocytes (%) (Auto) 25.2 10.0-50.0 % Monocytes (%) (Auto) 5.3 0.0-12.0 % Eosinophils (%) (Auto) 0.5 0.0-7.0 % Basophils (%) (Auto) 1.0 0.0-2.0 % Neutrophils # (Auto) 5.4 1.6-8.6 10 ^3/uL Lymphocytes # (Auto) 2.0 0.4-5.4 10 ^3/uL Monocytes # (Auto) 0.4 0-1.3 10 ^3/uL Eosinophils # (Auto) 0 0-0.8 10 ^3/uL Basophils # (Auto) 0.1 0-0.2 10 ^3/uL Nucleated Red Blood Cells 0.1 % Sodium Level 142 136-145 mmol/L Potassium Level 4.2 3.5-5.1 mmol/L Chloride Level 110 H 98-107 mmol/L Carbon Dioxide Level 13 L 20-31 mmol/L Anion Gap 19 H 5-15 Blood Urea Nitrogen 8 L 9-23 mg/dL Creatinine 1.01 0.700-1.30 mg/dL Glomerular Filtration Rate Calc 105 >90 mL/min BUN/Creatinine Ratio 7.9 L 10.0-20.0 Serum Glucose 84 74-106 mg/dL Calcium Level 10.4 8.7-10.4 mg/dL Magnesium Level 2.1 1.6-2.6 mg/dL Total Bilirubin 0.2 0.2-1.0 mg/dL Aspartate Amino Transferase (AST) 14 13-40 U/L Alanine Aminotransferase (ALT) 20 7-40 U/L Alkaline Phosphatase 73 46-116 U/L Creatine Kinase 84 46-171 U/L Total Protein 7.8 5.7-8.2 g/dL Albumin 5.1 H 3.2-4.8 g/dL Levetiracetam Level Pending Current Medications Medications (Trade) Dose Ordered Sig/Anuj Route Start Time Stop Time Status Last Admin Lorazepam (Ativan Inj) 2 mg ONCE ONCE IM 02/04/25 02:00 02/04/25 02:01 DC 02/04/25 02:02 Levetiracetam 100 ml @ 400 mls/hr ONCE ONCE IV 02/04/25 02:45 02/04/25 02:59 DC 02/04/25 03:33 PROCEDURE(s): LSHD2 - L SHOULDER 2+ VIEW XRAY REASON: shoulder dislocation ORDER NUMBER(s): [id number], ACCESSION NUMBER(s): [id number] CLINICAL INDICATION: shoulder dislocation TECHNIQUE: 2 radiographic views of the left shoulder were obtained. Comparison: XY L SHOULDER 2+ VIEW XRAY on DOS: 01/26/25, XY L SHOULDER 2+ VIEW XRAY on DOS: 01/10/25, XY L SHOULDER 1V XRAY on DOS: 01/10/25, XY L SHOULDER 2+ VIEW XRAY on DOS: 01/09/25, XY L SHOULDER 2+ VIEW XRAY on DOS: 12/12/24 FINDINGS/IMPRESSION: There is no evidence for acute fracture or dislocation. The bones are osteopenic. The patient is post screw fixation of the glenoid. There is a degenerative osteophytosis along the inferior humeral head. Time of 1ST Reevaluation: 01:19 Reevaluation 1ST: Unchanged Patient Education/Counseling: Diagnosis, Treatment Family Education/Counseling: No Family Present Departure 1 Departure Time of Disposition: 03:40 Impression: Primary Impression: Breakthrough seizure Additional Impression: Instability of left shoulder joint Disposition: 09 ADMITTED INPATIENT Condition: Stable Comments 24-year-old male presented to the emergency department with 2 seizures at home prior to arrival and suspected recurrent left shoulder dislocation. Patient had another witnessed seizure in the emergency department. Ativan and Keppra bolus were administered. Single cautious attempt at reduction was performed which was unsuccessful. Plan for patient to be admitted for further treatment, evaluation and monitoring for multiple and increased frequency of seizures. Chart review reveals that patient has chronic left shoulder deformity consistent with shoulder dislocation. Dr. Leary (orthopedics) operated on L shoulder previously and recommended further outpatient evaluation and treatment for chronic dislocation. Case discussed with Serge Weinstein, recommendation is add on CT head. Extensive evaluation was performed in attempt to identify or rule out: (See differential diagnosis section) The following tests were ordered, and results were reviewed by me and discussed with patient: (See diagnostic results section) The following test were independently interpreted by me: N/A I reviewed and agreed with the following test results read by other providers: N/A I reviewed the following notes from the pt's past medical encounters: Encounter 11.20.24 for shoulder dislocation Additional information was gathered from interviewing the following independent historians: N/A Discussion of management or test interpretation with external physician/other qualified health nonfarm animal caretaker: N/A Addressed an acute or chronic illness that poses a threat to life or bodily function: recurrent seizures Decision regarding hospitalization or escalation of hospital level of care: Risk and benefits of admission for further treatment of patient's condition was considered. Due to patient's current clinical condition, high risk of decline and poor outcome if discharged and need for further inpatient management and monitoring, patient will be admitted to the hospital. Discussed with patient. Drug therapy requiring intensive monitoring for toxicity: IV keppra Parenteral controlled substances: IV propofol, IV ketamine Decision regarding elective major surgery with identified patient or procedure risk factors: N/A Decision regarding emergency major surgery: N/A Decision not to resuscitate or to de-escalate care because of poor prognosis: N/A Diagnosis or treatment significantly limited by social determinants of health: N/A Critical Care Note Critical Care Time?: No Stability Stability form required: No Heart Score Heart Score: Heart Score Response (Comments) Value History N/A 0 EKG N/A 0 Age N/A 0 Risk Factors N/A 0 Troponin N/A 0 Total 0 I personally scribed for ANISH ROLAND MD ([email or web address]) on 02/04/25 at 01:24. Electronically submitted by Tl Angel ([employer]). I personally scribed for ANISH ROLAND MD ([email or web address]) on 02/04/25 at 03:38. Electronically submitted by Tl Angel ([employer]). ANISH ROLAND MD Feb 04, 2025 01:24
[2025-02-04] MEDS: LORazepam 2MG/ML-1ML VIAL ONE (01:57)
--- NOTE | 2025-02-04 02:01 | DVH ---
CLINICAL INDICATION: shoulder dislocation TECHNIQUE: 2 radiographic views of the left shoulder were obtained. Comparison: XY L SHOULDER 2+ VIEW XRAY on DOS: 01/26/25, XY L SHOULDER 2+ VIEW XRAY on DOS: 01/10/25, XY L SHOULDER 1V XRAY on DOS: 01/10/25, XY L SHOULDER 2+ VIEW XRAY on DOS: 01/09/25, XY L SHOULDER 2+ VIE W XRAY on DOS: 12/12/24 FINDINGS/IMPRESSION: There is no evidence for acute fracture or dislocation. The bones are osteopenic. The patient is po st screw fixation of the glenoid. There is a degenerative osteophytosis along the inferior humeral h ead.
[2025-02-04] MEDS: LORazepam 2MG/ML-1ML VIAL IM ONE (02:02)
[2025-02-04 02:21] LABS: Basophils # (auto) 0.1 10 ^3/uL (0-0.2); Eosinophils # (auto) 0 10 ^3/uL (0-0.8); Eosinophils % (auto) 0.5 % (0.0-7.0); Hematocrit 43.3 % (41.0-53.0); Hemoglobin 14.4 g/dL (13.5-17.5); Lymphocytes % (auto) 25.2 % (10.0-50.0); Mean Corpuscular Hemoglobin 29.6 pg (28.0-32.0); Mean Corpuscular Hgb Conc. 33.3 g/dL (32.0-36.0); Mean Corpuscular Volume 88.8 fL (80.0-100.0); Monocytes # (auto) 0.4 10 ^3/uL (0-1.3); Monocytes % (auto) 5.3 % (0.0-12.0); Neutrophils # (auto) 5.4 10 ^3/uL (1.6-8.6); Nucleated Red Blood Cells % 0.1 %; Platelet Count (auto) 382 10^3/uL (140-450); Red Blood Cells 4.88 10^6/uL (4.5-5.90); Red Cell Distribution Width 13.9 % (11.8-14.3); White Blood Cell 7.9 10^3/uL (4.4-10.8)
[2025-02-04] MEDS: MORPHINE SULFATE INJ 2 MG/ml SYRG IV ONE (02:34)
[2025-02-04] MEDS: SODIUM CHLORIDE 0.9% 1,000 ML IV ONE (02:34)
[2025-02-04] MEDS: KETOROLAC TROMETH 30 MG/ML 1ML VIAL IV ONE (02:35)
[2025-02-04 02:41] LABS: Alanine Aminotransferase 20 U/L (7-40); Alkaline Phosphatase 73 U/L (46-116); Anion Gap 19 (5-15); Aspartate Aminotransferase 14 U/L (13-40); BUN/Creatinine Ratio 7.9 (10.0-20.0); Calcium 10.4 mg/dL (8.7-10.4); Glucose 84 mg/dL (74-106); Magnesium 2.1 mg/dL (1.6-2.6); Potassium 4.2 mmol/L (3.5-5.1); Sodium 142 mmol/L (136-145); Total Protein 7.8 g/dL (5.7-8.2)
[2025-02-04 02:42] LABS: Creatine Kinase IFCC 84 U/L (46-171)
[2025-02-04 03:16] LABS: Albumin 5.1 g/dL (3.2-4.8); Bilirubin, Total 0.2 mg/dL (0.2-1.0); Blood Urea Nitrogen 8 mg/dL (9-23); Carbon Dioxide 13 mmol/L (20-31); Chloride 110 mmol/L (98-107)
[2025-02-04] MEDS: PROPOFOL 10 MG/ML 20 ML IV ONE (03:28)
[2025-02-04] MEDS: KETAMINE 50mg/ML 10ml Vial (500mg/10ml) IV ONE (03:28)
[2025-02-04] MEDS: levETIRAcetam 500 mg/100ml 100 ML IV ONE (03:33)
[2025-02-04] MEDS ORDERED: ACETAMINOPHEN 325 MG TAB PO PRN (05:00)
[2025-02-04] MEDS ORDERED: ONDANSETRON HCL 4 MG/2 ML VIAL IV PRN (05:00)
[2025-02-04] MEDS ORDERED: LORazepam 2MG/ML-1ML VIAL IV PRN (05:00)
--- NOTE | 2025-02-04 05:04 | DVHHP2 ---
History of Present Illness Reason for Visit: Left shoulder pain History of Present Illness 24-year-old male presents for evaluation of left shoulder pain. Patient reports having left shoulder pain after falling due to recurrent seizures today. Patient with multiple admissions with similar complaints. He believes he dislocated his shoulder again. Attempted reduction by ER provider awaiting results of CT of the left shoulder post reduction. Past Medical History Seizures Past Surgical History Left shoulder surgery Family History Noncontributory Smoke: <1 pack per day ALCOHOL: occassional Drugs: Marijuana Review of Systems Review of Systems Review of systems are negative otherwise addressed in HPI. Allergies: Coded Allergies: NO KNOWN ALLERGIES (Unverified , 04/04/10) Exam Vital Signs Vital Signs Date Time Temp Pulse Resp B/P (MAP) Pulse Ox O2 Delivery O2 Flow Rate FiO2 02/04/25 03:22 98.2 108 19 112/87 (95) 97 98.2 02/04/25 02:13 Room Air* 0 21 Exam Gen: 24-year-old male in moderate distress Skin: Warm, dry, normal color and texture, no rash. HEENT: Normocephalic atraumatic, mucous membranes moist and pink. Neck: Cervical and supraclavicular nodes normal without enlargement, trachea is midline, thyroid gland is normal without masses. Pulmonary: Clear to auscultation and percussion bilaterally. Cardiac: Regular rate and rhythm. No murmur Abdomen: Soft, nontender, nondistended, bowel sounds present all 4 quadrants, no guarding, no rigidity, no organomegaly. Extremities: No cyanosis, clubbing, left arm on a sling Neuro: Cranial nerves II through XII grossly intact, normal affect and speech, no focal motor deficits. Labs/Xrays ORDERING PHYSICIAN: ANISH HUIZAR MD PROCEDURE(s): LSHD2 - L SHOULDER 2+ VIEW XRAY REASON: shoulder dislocation ORDER NUMBER(s): [id number], ACCESSION NUMBER(s): [id number] CLINICAL INDICATION: shoulder dislocation TECHNIQUE: 2 radiographic views of the left shoulder were obtained. Comparison: XY L SHOULDER 2+ VIEW XRAY on DOS: 01/26/25, XY L SHOULDER 2+ VIEW XRAY on DOS: 01/10/25, XY L SHOULDER 1V XRAY on DOS: 01/10/25, XY L SHOULDER 2+ VIEW XRAY on DOS: 01/09/25, XY L SHOULDER 2+ VIEW XRAY on DOS: 12/12/24 FINDINGS/IMPRESSION: There is no evidence for acute fracture or dislocation. The bones are osteopenic. The patient is post screw fixation of the glenoid. There is a degenerative osteophytosis along the inferior humeral head. Labs Test 02/04/25 02:10 Range/Units White Blood Count 7.9 4.4-10.8 10^3/uL Red Blood Count 4.88 4.5-5.90 10^6/uL Hemoglobin 14.4 13.5-17.5 g/dL Hematocrit 43.3 41.0-53.0 % Mean Corpuscular Volume 88.8 80.0-100.0 fL Mean Corpuscular Hemoglobin 29.6 28.0-32.0 pg Mean Corpuscular Hemoglobin Concent 33.3 32.0-36.0 g/dL Red Cell Distribution Width 13.9 11.8-14.3 % Platelet Count 382 140-450 10^3/uL Mean Platelet Volume 7.5 6.9-10.8 fL Neutrophils (%) (Auto) 68.0 37.0-80.0 % Lymphocytes (%) (Auto) 25.2 10.0-50.0 % Monocytes (%) (Auto) 5.3 0.0-12.0 % Eosinophils (%) (Auto) 0.5 0.0-7.0 % Basophils (%) (Auto) 1.0 0.0-2.0 % Neutrophils # (Auto) 5.4 1.6-8.6 10 ^3/uL Lymphocytes # (Auto) 2.0 0.4-5.4 10 ^3/uL Monocytes # (Auto) 0.4 0-1.3 10 ^3/uL Eosinophils # (Auto) 0 0-0.8 10 ^3/uL Basophils # (Auto) 0.1 0-0.2 10 ^3/uL Nucleated Red Blood Cells 0.1 % Sodium Level 142 136-145 mmol/L Potassium Level 4.2 3.5-5.1 mmol/L Chloride Level 110 H 98-107 mmol/L Carbon Dioxide Level 13 L 20-31 mmol/L Anion Gap 19 H 5-15 Blood Urea Nitrogen 8 L 9-23 mg/dL Creatinine 1.01 0.700-1.30 mg/dL Glomerular Filtration Rate Calc 105 >90 mL/min BUN/Creatinine Ratio 7.9 L 10.0-20.0 Serum Glucose 84 74-106 mg/dL Calcium Level 10.4 8.7-10.4 mg/dL Magnesium Level 2.1 1.6-2.6 mg/dL Total Bilirubin 0.2 0.2-1.0 mg/dL Aspartate Amino Transferase (AST) 14 13-40 U/L Alanine Aminotransferase (ALT) 20 7-40 U/L Alkaline Phosphatase 73 46-116 U/L Creatine Kinase 84 46-171 U/L Total Protein 7.8 5.7-8.2 g/dL Albumin 5.1 H 3.2-4.8 g/dL Assessment/Plan Assessment/Plan Assessment Breakthrough seizure ? Left shoulder dislocation Noncompliant Plan Admit the patient to [facility] to the hospitalist Seizure precautions Dr. Huizar placed orthopedic consultation. Advised that on previous admission two months ago Dr. Leary advised for patient to be transferred for higher level of care due to continued dislocation. Resume home medications Pain management Continue treatment per orders. Plan discussed with: Patient My Orders Orders - COLBY SKINNER Procedure Category Date Status Time Drug Screen LAB 02/04/25 Logged 04:17 Seizure Precautions [facility] 02/04/[address] 04:56 Lorazepam 2mg/Ml Inj PHA 02/04/25 Verified (Ativan Inj) 05:00 Levetiracetam Tablet [facility] 02/04/25 Verified (Keppra Tablet) 10:[address] Tablet PHA 02/04/25 Verified (Depakote "Dr" Tabl 10:00 Gabapentin Capsule PHA 02/04/25 Verified (Neurontin Capsule) 06:00 Admit ADMIT 02/04/25 Verified 04:56 Hydrocodone-Acet PHA 02/04/25 Verified 5/325mg Tab ([place] 05:00 Ondansetron Hcl PHA 02/04/25 Verified (Zofran) 05:00 Condition: Stable [facility] 02/04/25 Verified 04:56 Date of Service: Feb 04, 2025 Billing Provider: COLBY SKINNER Common Visit Codes: [id number] INP/OBS CARE (MOD) COLBY SKINNER AGACNP Feb 04, 2025 05:04
--- NOTE | 2025-02-04 05:08 | DVH ---
EXAM: CT HEAD WITHOUT CONTRAST INDICATION: Seizure. TECHNIQUE: CT of the head without intravenous contrast. Radiation Dose : 1. Head: CT Dose: CTDI volume is 60.5 mGy. Dose-length product is 1192.5 mGy*cm The dose indicators for CT are the volume Computed Tomography (CT) Dose Index (CTDIvol) and the Dose Length Product (DLP), and are measured in units of mGy and mGy-cm, respectively. These indicators are not patient dose, but values generated from the CT scanner acquisition factors. The report includes radiation exposure data for exposures received during this examination. COMPARISON: CT HEAD WITHOUT CONTRAST on DOS: 01/26/25, CT HEAD WITHOUT CONTRAST on DOS: 11/20/24, CT HEA D WITHOUT CONTRAST on DOS: 08/26/24, CT HEAD WITHOUT CONTRAST on DOS: 07/12/24, CT HEAD WITHOUT CONTRA ST on DOS: 07/05/24 FINDINGS: There is no evidence of acute intracranial hemorrhage, extra-axial collection, mass effect, midline s hift, herniation or hydrocephalus. The ventricles, sulci and cisterns are age appropriate. The aguirre-white differentiation is intact. The visualized paranasal sinuses and mastoid air cells are clear. The surrounding soft tissues and osseous structures are unremarkable. IMPRESSION: No acute intracranial abnormality.
--- NOTE | 2025-02-04 05:15 | DVH ---
EXAM: CT CT L SHOULDER WO CONTRAST HISTORY: Left shoulder deformity COMPARISON: CT CT L SHOULDER WO CONTRAST on DOS: 12/02/24, CT CT L SHOULDER WO CONTRAST on DOS: 4, CT CT L SHOULDER WO CONTRAST on DOS: 07/12/24, CT CT L SHOULDER WO CONTRAST on DOS: 07/05/24 TECHNIQUE: Noncontrast axial CT images of the left shoulder were performed. Sagittal and coronal refo rmatted images were obtained. This CT exam was performed using one or more of the following dose redu ction techniques: Automated exposure control, adjustment of the mA and/or kV according to patient siz e, or use of iterative reconstruction technique. FINDINGS: No acute fracture or dislocation are identified about the left shoulder. Postsurgical aguirre es are visualized at the acromion with chronic fracture. Moderate osteoarthrosis of the glenohumeral joint. Mild atelectasis of the left lung bases. IMPRESSION: Moderate osteoarthrosis of the left glenohumeral joint with postsurgical changes visualized in the ac romion. No acute fracture dislocation.
[2025-02-04] MEDS: GABAPENTIN 100 MG CAP PO SCH (06:00)
[2025-02-04] MEDS: levETIRAcetam 500 MG TAB PO SCH (10:51)
[2025-02-04] MEDS: HYDROcodone-ACET 5/325MG TAB PO PRN (10:52)
[2025-02-04] MEDS: MORPHINE SULFATE INJ 2 MG/ml SYRG IV PRN (18:53)
[2025-02-05] VITALS (7 sets, daily range): BP systolic 101–121; BP diastolic 39–78; PULSE 60–68; RESP 16–20; TEMP 97.5–98.2; O2SAT 96–98
--- NOTE | 2025-02-05 11:17 | DVHPN2 ---
Objective Vitals Vital Signs Date Time Temp Pulse Resp B/P (MAP) Pulse Ox O2 Delivery O2 Flow Rate FiO2 02/05/25 09:45 72 16 101/60 02/05/25 08:30 97.9 97 97.9 02/04/25 10:17 Room Air* 0 21 Intake/Output Intake and Output 02/05/25 07:00 # Voids 4 Medications Current Medications Medications Dose Ordered Sig/Anuj Route Start Time Stop Time Status Last Admin Dose Admin Lorazepam 1 mg Q5MINP PRN IV 02/04/25 05:00 Levetiracetam 500 mg BID PO 02/04/25 10:00 02/05/25 09:15 500 MG Divalproex Sodium 500 mg BID PO 02/04/25 10:00 02/05/25 09:16 500 MG Gabapentin 100 mg TID PO 02/04/25 06:00 Acetaminophen/ Hydrocodone Bitart 1 tab Q4HP PRN PO 02/04/25 05:00 02/05/25 05:05 1 TAB Ondansetron HCl 4 mg Q4HP PRN IV 02/04/25 05:00 Acetaminophen 650 mg Q6HP PRN PO 02/04/25 05:00 Morphine Sulfate 2 mg Q4HPRN PRN IV 02/04/25 05:00 02/05/25 09:15 2 MG Laboratory Results Laboratory Tests 02/04/25 02:10 Assessment/Plan My Orders Orders - SUPRIYA MATAMOROS MD Procedure Category Date Status Time Regular Diet DIET 02/04/25 Transmitted Lunch SUPRIYA MATAMOROS MD Feb 05, 2025 11:17
[2025-02-05] MEDS ORDERED: KETOROLAC TROMETH 30 MG/ML 1ML VIAL IV PRN (19:00)
--- NOTE | 2025-02-10 03:46 | DVHDS2 ---
Discharge Summary Date of Admission Feb 04, 2025 at 04:56 Date of Discharge: Feb 05, 2025 Admitting Diagnosis Breakthrough seizure ? Left shoulder dislocation Noncompliant Labs/Diagnostic Data: Laboratory Results Test 02/04/25 02:10 White Blood Count 7.9 10^3/uL (4.4-10.8) Red Blood Count 4.88 10^6/uL (4.5-5.90) Hemoglobin 14.4 g/dL (13.5-17.5) Hematocrit 43.3 % (41.0-53.0) Mean Corpuscular Volume 88.8 fL (80.0-100.0) Mean Corpuscular Hemoglobin 29.6 pg (28.0-32.0) Mean Corpuscular Hemoglobin Concent 33.3 g/dL (32.0-36.0) Red Cell Distribution Width 13.9 % (11.8-14.3) Platelet Count 382 10^3/uL (140-450) Mean Platelet Volume 7.5 fL (6.9-10.8) Neutrophils (%) (Auto) 68.0 % (37.0-80.0) Lymphocytes (%) (Auto) 25.2 % (10.0-50.0) Monocytes (%) (Auto) 5.3 % (0.0-12.0) Eosinophils (%) (Auto) 0.5 % (0.0-7.0) Basophils (%) (Auto) 1.0 % (0.0-2.0) Neutrophils # (Auto) 5.4 10 ^3/uL (1.6-8.6) Lymphocytes # (Auto) 2.0 10 ^3/uL (0.4-5.4) Monocytes # (Auto) 0.4 10 ^3/uL (0-1.3) Eosinophils # (Auto) 0 10 ^3/uL (0-0.8) Basophils # (Auto) 0.1 10 ^3/uL (0-0.2) Nucleated Red Blood Cells 0.1 % Sodium Level 142 mmol/L (136-145) Potassium Level 4.2 mmol/L (3.5-5.1) Chloride Level 110 mmol/L (98-107) Carbon Dioxide Level 13 mmol/L (20-31) Anion Gap 19 (5-15) Blood Urea Nitrogen 8 mg/dL (9-23) Creatinine 1.01 mg/dL (0.700-1.30) Glomerular Filtration Rate Calc 105 mL/min (>90) BUN/Creatinine Ratio 7.9 (10.0-20.0) Serum Glucose 84 mg/dL (74-106) Calcium Level 10.4 mg/dL (8.7-10.4) Magnesium Level 2.1 mg/dL (1.6-2.6) Total Bilirubin 0.2 mg/dL (0.2-1.0) Aspartate Amino Transferase (AST) 14 U/L (13-40) Alanine Aminotransferase (ALT) 20 U/L (7-40) Alkaline Phosphatase 73 U/L (46-116) Creatine Kinase 84 U/L (46-171) Total Protein 7.8 g/dL (5.7-8.2) Albumin 5.1 g/dL (3.2-4.8) Levetiracetam Level 10.5 ug/mL (10.0-40.0) Other Laboratory Tests 02/04/25 02:10 Brief Hx & Hospital Course: This is a 24 years old male with no known past medical history except seizure came to emergency department after falling due to recurrent seizure today. The patient was admitted. CT head showed no acute process. CT of left shoulder showed Moderate osteoarthrosis of the left glenohumeral joint with postsurgical changes visualized in the acromion. No acute fracture dislocation. Attempts reduction by ER provider was done prior to CT scan. Orthopedic surgeon was consulted. Dr. Garcia, orthopedic surgeon, recommend to put the patient arm on a sling and pain medication. Patient become very anxious and decided to elope. Physical exam prior to patient eloped showed HEENT: Normocephalic atraumatic pupils equal react to light and accommodation. Extraocular muscles intact, conjunctiva pink, oropharynx moist, no thrush, no exudate. Lymphatic: No lymphadenopathy Cardiovascular exam: S1, S2 was heard. No murmurs, rubs, gallops Lung: Clear on auscultation bilaterally, no wheeze, rale, rhonchi. GI: Abdominal soft, nondistended, nontenderness, positive bowel sounds. Extremity: No crepitus, cyanosis, edema. Pedal pulses present bilateral. Limited range of motion on the left shoulder due to pain Skin: Normal turgor, no rash. Psych: Alert, oriented x3. Neurology: No focal deficits, cranial nerve II to XII grossly intact. This medical document was created using an electronic medical record system with [employer] direct computerized dictation system. Although this document has been carefully reviewed, there may still be some phonetic and typographical errors. These areas are purely typographical due to imperfections of the software programs, and do not reflect any compromise in the patient's medical care. Condition at Discharge: Guarded Final Diagnosis/Problems List Breakthrough seizure ? Left shoulder dislocation Noncompliant Discharge Disposition: Eloped Discharge Statement: "Patient was advised to return to the ER or call 911 if any headaches, dizziness, shortness of breath, chest pain, abdominal pain, bleeding, fevers, or worsening of medical condition. Patient was counseled about treatment plan, medications, possible side effects, patientverbalized understanding. All questions were answered to the best of my ability. This discharge took greater then 30 minutes in planning, reviewing documentation, counseling the patient, and discussing with other team members." ASSESSMENT ASSESSMENT Assessment Date of Service: Feb 05, 2025 Billing Provider: SUPRIYA MATAMOROS MD Common Visit Codes: 17085-AFC/OBS DISCH DAY >30min SUPRIYA MATAMOROS MD Feb 10, 2025 03:46
== END 2025-02-05 20:00 | disposition left against medical advice (07) | DRG 342 ==
LOC: ER 00:24 → OVERFLOW 04:56 → WEST WING 02-05 15:50
PROVIDERS: ADMIT Internal Medicine; ATTEND Internal Medicine
PROC: 0PSDXZZ Reposition Left Humeral Head, External Approach (ICD-10-PCS; principal; 2025-02-04)
DX: S43.005A Unspecified dislocation of left shoulder joint, initial encounter (principal); F12.90 Cannabis use, unspecified, uncomplicated; G40.909 Epilepsy, unspecified, not intractable, without status epilepticus; M25.312 Other instability, left shoulder; F17.210 Nicotine dependence, cigarettes, uncomplicated; W18.39XA Other fall on same level, initial encounter; Z91.199 Patient's noncompliance with other medical treatment and regimen due to unspecified reason; Z79.899 Other long term (current) drug therapy; Y93.89 Activity, other specified; Y92.89 Other specified places as the place of occurrence of the external cause; Y99.8 Other external cause status
CPT/HCPCS: 23650; 36415; 70450; 73030; 73200; 80053; 82542; 82550; 83735; 85025; 99152; 99153; G0378; J1885; J2704

== ENCOUNTER 2025-02-24 08:06 | Emergency (ER) | payer MEDICAID ==
[~2025-02-24] VITALS: Ht 177.8 cm; Wt 72.8 kg
--- NOTE | 2025-02-24 08:43 | ED.PDOC ---
HPI (NEURO) HPI Comments 24 y/o M, with PMHx of seizures presents to the ED for CC of s/p seizure. Patient states, that he was getting ready for work this morning (02/24/25) when he had a seizure resulting in him hitting the right side of his face and dislocating his left shoulder. Patient relays, that he has previously displaced his left shoulder multiple times as a result to seizure episodes. Patient currently takes, 2500mg daily of Keppra. Patient denies head injury, cervical injury, open wounds, or abrasions. No other symptoms or modifying factors present at this time. Chief Complaint: Seizure Time Seen by MD: 08:10 Primary Care Provider: UNKNOWN Reviewed Notes: Nurses Notes, Medications, Allergies Information Source: Patient Mode of Arrival: Ambulatory Severity: Moderate Headache Severity: None Timing: Hours Duration: Since onset Prehospital treatment: None Onset: At rest Circumstances: Spontaneous Before: Normal During: Awake After: Normal Mentation History of: Seizure Disorder Modifying factors: Nothing Associated Signs and Symptoms: None Past Medical History PAST MEDICAL HISTORY: Seizures Surgical History: Denies all surgeries Family History Family History: Reviewed,noncontributory to illness Social History Smoker: Cigarettes Alcohol: Occasionally Drugs: Marijuana Lives In: Home Constitutional: denies: chills, diaphoresis, fatigue, fever, malaise, sweats, weakness, others EENTM: denies: blurred vision, double vision, ear bleeding, ear discharge, ear drainage, ear pain, ear ringing, eye pain, eye redness, hearing loss, mouth pain, mouth swelling, nasal discharge, nose bleeding, nose congestion, nose betsy n, photophobia, tearing, throat pain, throat swelling, voice changes, others Respiratory: denies: cough, hemoptysis, orthopnea, SOB at rest, shortness of breath, SOB with excertion, stridor, wheezing, others Cardiovascular: denies: chest pain, dizzy spells, diaphoresis, Dyspnea on exertion, edema, irregular heart beat, left arm pain, lightheadedness, palpitations, PND, syncope, others Gastrointestinal: denies: abdomen distended, abdominal pain, blood streaked bowels, constipated, diarrhea, dysphagia, difficulty swallowing, hematemesis, melena, nausea, poor appetite, poor fluid intake, rectal bleeding, rectal pain, vomiting, others Genitourinary: denies: burning, dysuria, flank pain, frequency, hematuria, incontinence, penile discharge, penile sore, pain, testicle pain, testicle swelling, urgency, others Neurological: denies: dizziness, fainting, headache, left sided numbness, left sided weakness, numbness, paresthesia, pre-existing deficit, right sided numbness, right sided weakness, seizure, speech problems, tingling, tremors, weakness, others Musculoskeletal: reports: others (LEFT SHOULDER DISLOCATION); denies: back pain, gout, joint pain, joint swelling, muscle pain, muscle stiffness, neck pain Integumetry: denies: bruises, change in color, change in hair/nails, dryness, laceration, lesions, lumps, rash, wounds, others Allergic/Immunocompromised: denies: Difficulty Healing, Frequent Infections, Hives, Itching, others Hematologic/Lymphatic: denies: anemia, blood clots, easy bleeding, easy bruising, swollen glands, others Endocrine: denies: excessive hunger, excessive sweating, excessive thirst, excessive urination, flushing, intolerance to cold, intolerance to heat, unexplained weight gain, unexplained weight loss, others Psychiatric: denies: anxiety, bipolar disorder, depression, hopeless, panic disorder, schizophrenia, sleepless, suicidal, others All Other Systems: Reviewed and Negative Physical Exam General Appearance: Moderate Distress HEENT: Normal ENT Inspection, Pharynx Normal, TMs Normal Neck: Full Range of Motion, Non-Tender, Normal, Normal Inspection Respiratory: Chest Non-Tender, Lungs Clear, No Accessory Muscle Use, No Resp iratory Distress, Normal Breath Sounds Cardiovascular: No Edema, No JVD, No Murmur, No Gallop, Normal Peripheral Pulses, Regular Rate/Rhythm Breast Exam: Deferred Gastrointestinal: No Organomegaly, Non Tender, No Pulsatile Mass, Normal Bowel Sounds, Soft Genitalia: Deferred Pelvic: Deferred Rectal: Deferred Extremities: No calf tenderness, Normal capillary refill, No pedal edema, Tender (There is obvious deformity to the left shoulder with decreased range of motion as well as tenderness to palpation) Musculoskeletal : Apperance: Normal Neurologic: Alert, 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 Was a procedure done?: Yes Sedation Sedation?: Yes Informed consent obtained: Yes Sedation start time: 09:54 Sedation end time: 10:05 Sedation total time: 11 minutes Reduction Indication: Dislocation (Left shoulder) Sedation: Consents obtained, Sedation as ordered Intra-articular anesthetic yesi: No Post-reduction x-ray show: Reduction, Good Alignment Informed consent obtained: Yes Risks/benefits/alt described: Yes Differential Diagnosis (SZ) Seizure: Epilepsy-Break Through, Epilepsy-Status, Other (Left shoulder dislocation) X-Ray, Labs, Meds, VS Vital Signs Date Time Temp Pulse Resp B/P (MAP) Pulse Ox O2 Delivery O2 Flow Rate FiO2 02/24/25 10:21 Room Air* 0 21 02/24/25 10:05 71 16 113/77 (89) 98 02/24/25 10:00 98.0 69 16 123/90 (101) 99 98.0 02/24/25 09:03 98.0 78 15 118/77 (91) 95 98.0 02/24/25 08:31 74 02/24/25 08:20 97.8 65 18 125/81 (96) 98 97.8 Lab Test 02/24/25 08:23 Range/Units POC Glucose 102 70-106 mg/dl Current Medications Medications (Trade) Dose Ordered Sig/Anuj Route Start Time Stop Time Status Last Admin Levetiracetam 100 ml @ 400 mls/hr ONCE ONCE IV 02/24/25 08:30 02/24/25 08:44 DC 02/24/25 08:50 Etomidate 20 mg ONCE ONCE IV 02/24/25 08:30 02/24/25 08:31 DC 02/24/25 09:54 LEFT SHOULDER XR: FINDINGS/IMPRESSION: Severe osteoarthrosis of the left glenohumeral joint with postsurgical changes visualized. Patient positioning limits evaluation. The patient tolerated the procedure well We did repeat the left shoulder and it shows: FINDINGS/IMPRESSION: : Limited examination secondary to single frontal view provided. Surgical screw fixation of the glenoid. No acute fracture or dislocation. The patient received Keppra here in the emergency department's The patient also received etomidate 20 mg IV for the sedation and procedure The patient is being discharged at this time A sling was placed to the left upper extremity The patient will return to the emergency department's condition worsens The patient was complaining of pain so was given morphine 4 mg IV push The patient was also given Zofran 4 mg IV push for the nausea Images Reviewed?: Images reviewed and evaluated by me Time of 1ST Reevaluation: 08:40 Reevaluation 1ST: Unchanged Patient Education/Counseling: Diagnosis, Treatment, Prognosis, Need For Follow Up Family Education/Counseling: No Family Present Departure 1 Departure Time of Disposition: 10:25 Impression: Primary Impression: Seizure Additional Impression: Dislocation of left shoulder joint Qualified Codes: S43.005A - Unspecified dislocation of left shoulder joint, initial encounter Disposition: HOME / SELF CARE / HOMELESS Condition: Fair Discharged With: Self Critical Care Note Critical Care Time?: No Stability Stability form required: No Heart Score Heart Score: Heart Score Response (Comments) Value History N/A 0 EKG N/A 0 Age N/A 0 Risk Factors N/A 0 Troponin N/A 0 Total 0 I personally scribed for TANO VOSS MD ([email or web address]) on 02/24/25 at 08:43. Electronically submitted by Ara Ryder ([email or web address]). I personally scribed for TANO VOSS MD ([email or web address]) on 02/24/25 at 09:23. Electronically submitted by Ara Ryder ([email or web address]). TANO VOSS MD February 24, 2025 08:43
[2025-02-24] MEDS: levETIRAcetam 1000 mg/100ml 100 ML IV ONE (08:50)
[2025-02-24] MEDS: ETOMIDATE (2MG/ML) 20ML VIAL IV ONE (08:54)
--- NOTE | 2025-02-24 09:20 | DVH ---
CLINICAL INDICATION: trauma TECHNIQUE: 3 radiographic views of the left shoulder were obtained. Comparison: XY L SHOULDER 2+ VIEW XRAY on DOS: 02/04/25, XY L SHOULDER 2+ VIEW XRAY on DOS: 01/26/25, XY L SHOULDER 2+ VIEW XRAY on DOS: 01/10/25, XY L SHOULDER 1V XRAY on DOS: 01/10/25, XY L SHOULDER 2+ VIE W XRAY on DOS: 01/09/25 FINDINGS/IMPRESSION: Severe osteoarthrosis of the left glenohumeral joint with postsurgical changes visualized. Patient po sitioning limits evaluation.
[2025-02-24 10:00] VITALS: TEMP 98
[2025-02-24 10:05] VITALS: O2SAT 98
--- NOTE | 2025-02-24 10:23 | DVH ---
CLINICAL INDICATION: POST REDUCTION TECHNIQUE: XY L SHOULDER 1V XRAY Comparison: XY L SHOULDER 2+ VIEW XRAY on DOS: 02/24/25, XY L SHOULDER 2+ VIEW XRAY on DOS: 02/04/25, XY L SHOULDER 2+ VIEW XRAY on DOS: 01/26/25, XY L SHOULDER 2+ VIEW XRAY on DOS: 01/10/25, XY L SHOULDER 1V XRAY on DOS: 01/10/25 FINDINGS/IMPRESSION: : Limited examination secondary to single frontal view provided. Surgical screw fixation of the glenoid. No acute fracture or dislocation.
[2025-02-24] MEDS ORDERED: HYDR-4902 PO (10:30)
[2025-02-24] MEDS: ONDANSETRON HCL 4 MG/2 ML VIAL IV ONE (10:35)
[2025-02-24] MEDS: MORPHINE SULFATE 4 MG/ML SYR/VIAL IV ONE (10:36)
[2025-02-24 11:05] VITALS: BP 124/80; PULSE 68; RESP 16
== END 2025-02-24 11:07 | disposition home or self-care (01) ==
LOC: ER 08:06
DX: S43.005A Unspecified dislocation of left shoulder joint, initial encounter (principal); G40.909 Epilepsy, unspecified, not intractable, without status epilepticus; F17.210 Nicotine dependence, cigarettes, uncomplicated; F12.90 Cannabis use, unspecified, uncomplicated; Z79.899 Other long term (current) drug therapy; X58.XXXA Exposure to other specified factors, initial encounter; Y93.89 Activity, other specified; Y92.89 Other specified places as the place of occurrence of the external cause; Y99.8 Other external cause status
CPT/HCPCS: 23650; 73020; 73030; 82947; 96374; 96375; 99152; 99285; J1953; J2270; J2405; 82962; 96365

== ENCOUNTER 2025-03-01 02:33 | Inpatient (IN) | payer MEDICAID ==
[~2025-03-01] VITALS: Ht 177.8 cm; Wt 73.0 kg
[~2025-03-01 02:33] MED LIST changes: +HYDR-4902 PO
[2025-03-01] MEDS: levETIRAcetam 1000 mg/100ml 100 ML IV ONE (03:33)
[2025-03-01] MEDS: SODIUM CHLORIDE 0.9% 1,000 ML IV ONE (03:33)
--- NOTE | 2025-03-01 03:48 | ED.PDOC ---
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 Patient currently A&Ox4, but slow to respond. Patient presents to facility frequently for breakthrough seizures. Patient has chronic left shoulder injury often worsened or dislocated after seizure. Patient reports he is taking 2500 mg of Keppra daily. He states he has been compliant. Chief Complaint: Seizure Time Seen by MD: 03:35 Primary Care Provider: UNKNOWN Reviewed Notes: Medications, Allergies Allergies: Coded Allergies: NO KNOWN ALLERGIES (Unverified , 04/04/10) Home Meds Active Scripts Hydrocodone-Acetaminophen (Hydrocodone Bitartrate/AC 5-325 mg) 1 Tab Tab, 1 TAB PO Q8HP PRN for 6 Days, #18 TAB Prov:TANO VOSS MD 02/24/25 Levetiracetam (Keppra) 1,000 Mg Tab, 1 TAB PO BID, #60 TAB 5 Refills Prov:JACKELYN SANCHEZ MD 07/13/24 Information Source: Patient Mode of Arrival: Ambulatory Severity: Moderate Timing: Minutes Duration: Intermittent Prehospital treatment: None Vital Signs Vital Signs Date Time Temp Pulse Resp B/P (MAP) Pulse Ox O2 Delivery O2 Flow Rate FiO2 03/01/25 16:00 58 03/01/25 14:18 15 97 Room Air* 0 21 03/01/25 14:17 98.0 118/70 (86) 98.0 Physical Exam General: Awake, alert and oriented. No acute distress. Skin: Skin in warm, dry and intact. Appropriate color for ethnicity. HEENT: The head is normocephalic and atraumatic. Conjunctivae are clear without exudates or hemorrhage. Sclera is non-icteric. EOM are intact. No signs of nystagmus. Eyelids are normal in appearance without swelling or lesions. Oral mucosa is pink and moist Neck: The neck is supple with normal range of motion. No JVD. Cardiac: Heart rate and rhythm are normal. No murmurs, gallops, or rubs are auscultated. Respiratory: No signs of respiratory distress. Lung sounds are clear in all lobes bilaterally without rales, rhonchi, or wheezes. Abdominal: Abdomen is soft, non-tender without distention. Bowel sounds are present and normoactive in all four quadrants. Extremities: Flattened left deltoid with decreased range of motion of the left upper extremity. Strength in the bilateral hands, elbow intact. Neurological: The patient is awake, alert and oriented to person, place, and time with normal speech. Speech is clear. There is no facial asymmetry. Psychiatric: Appropriate mood and affect. Good judgement and insight. Review of Systems: REVIEW OF SYSTEMS: No fever, no chills, or fatigue HEENT: No sore throat, no earache, no congestion, no neck pain. Cardiac: No chest pain. No palpitations. Lungs: No shortness of breath, no cough. GI: No nausea, no vomiting, no diarrhea, no constipation, no abdominal pain : No dysuria, frequency, or urgency. No hematuria. Musculoskeletal: Positive left shoulder pain Skin: No rash, no itching. Neuro: No headache, no dizziness, no weakness. Positive seizure Past Medical History PAST MEDICAL HISTORY: Seizures Surgical History: Denies all surgeries Family History Family History: Reviewed,noncontributory to illness Social History Smoker: Cigarettes Alcohol: Occasionally Drugs: Marijuana Lives In: Home Was a procedure done? Was a procedure done?: Yes Sedation Sedation?: Yes Informed consent obtained: Yes Sedation start time: 14:30 Sedation end time: 15:00 Sedation total time: 30 Min Reduction Indication: Dislocation (Left shoulder dislocation) Sedation: Consents obtained, Sedation as ordered Intra-articular anesthetic yesi: No Post-reduction x-ray show: Reduction, Good Alignment Informed consent obtained: Yes Risks/benefits/alt described: Yes Differential Dx Considerations may include: Seizure disorder, infection, subtherapeutic medication level, noncompliance, substance intoxication, electrolyte imbalance, other X-Ray, Labs, Meds, VS Vital Signs Date Time Temp Pulse Resp B/P (MAP) Pulse Ox O2 Delivery O2 Flow Rate FiO2 03/01/25 16:00 58 03/01/25 14:18 85 15 97 Room Air* 0 21 03/01/25 14:17 98.0 86 15 118/70 (86) 96 98.0 03/01/25 13:17 68 03/01/25 12:30 71 11 91/60 (70) 96 03/01/25 11:00 97.8 69 15 92/44 (60) 97 97.8 03/01/25 08:30 61 14 91/44 (60) 95 03/01/25 08:00 Room Air* 0 21 03/01/25 06:06 97.5 75 12 94/41 (58) 97 97.5 03/01/25 04:15 87 18 95 Room Air* 0 03/01/25 04:12 97.5 83 16 119/73 (88) 94 97.5 03/01/25 02:35 98.0 96 16 101/77 (85) 94 98.0 Lab Test 03/01/25 09:00 03/01/25 03:47 Range/Units Levetiracetam Level Pending White Blood Count 6.1 4.4-10.8 10^3/uL Red Blood Count 5.08 4.5-5.90 10^6/uL Hemoglobin 15.1 13.5-17.5 g/dL Hematocrit 45.9 41.0-53.0 % Mean Corpuscular Volume 90.2 80.0-100.0 fL Mean Corpuscular Hemoglobin 29.7 28.0-32.0 pg Mean Corpuscular Hemoglobin Concent 32.9 32.0-36.0 g/dL Red Cell Distribution Width 16.0 H 11.8-14.3 % Platelet Count 219 140-450 10^3/uL Mean Platelet Volume 7.4 6.9-10.8 fL Neutrophils (%) (Auto) 59.3 37.0-80.0 % Lymphocytes (%) (Auto) 30.0 10.0-50.0 % Monocytes (%) (Auto) 6.9 0.0-12.0 % Eosinophils (%) (Auto) 3.1 0.0-7.0 % Basophils (%) (Auto) 0.7 0.0-2.0 % Neutrophils # (Auto) 3.6 1.6-8.6 10 ^3/uL Lymphocytes # (Auto) 1.8 0.4-5.4 10 ^3/uL Monocytes # (Auto) 0.4 0-1.3 10 ^3/uL Eosinophils # (Auto) 0.2 0-0.8 10 ^3/uL Basophils # (Auto) 0 0-0.2 10 ^3/uL Nucleated Red Blood Cells 0.2 % Sodium Level 139 136-145 mmol/L Potassium Level 3.8 3.5-5.1 mmol/L Chloride Level 108 H 98-107 mmol/L Carbon Dioxide Level 18 L 20-31 mmol/L Anion Gap 13 5-15 Blood Urea Nitrogen 15 9-23 mg/dL Creatinine 0.84 0.700-1.30 mg/dL Glomerular Filtration Rate Calc 123 >90 mL/min BUN/Creatinine Ratio 17.9 10.0-20.0 Serum Glucose 98 74-106 mg/dL Calcium Level 9.9 8.7-10.4 mg/dL Total Bilirubin 0.4 0.2-1.0 mg/dL Aspartate Amino Transferase (AST) 11 L 13-40 U/L Alanine Aminotransferase (ALT) 18 7-40 U/L Alkaline Phosphatase 108 46-116 U/L Total Protein 7.4 5.7-8.2 g/dL Albumin 4.7 3.2-4.8 g/dL Plasma/Serum Blood Alcohol 33.6 H <10 mg/dL Current Medications Medications (Trade) Dose Ordered Sig/Anuj Route Start Time Stop Time Status Last Admin Sodium Chloride 1,000 ml @ 1,000 mls/hr Q1H ONCE IV 03/01/25 03:00 03/01/25 03:59 DC 03/01/25 03:33 Levetiracetam 100 ml @ 400 mls/hr ONCE ONCE IV 03/01/25 03:00 03/01/25 03:14 DC 03/01/25 03:33 Lorazepam (Ativan Inj) 2 mg ONCE ONCE IV 03/01/25 04:00 03/01/25 04:01 DC 03/01/25 03:58 Ketorolac Tromethamine (Toradol Injection) 15 mg ONCE ONCE IV 03/01/25 13:30 03/01/25 13:31 DC 03/01/25 13:36 Propofol (Diprivan) 200 mg ONCE ONCE IV 03/01/25 13:30 03/01/25 13:31 DC 03/01/25 14:35 Time of 1ST Reevaluation: 04:05 Reevaluation 1ST: Unchanged Time of 2ND Reevaluation: 03:53 Reevaluation 2ND: Seizure activity x 5min Patient Education/Counseling: Need For Follow Up Family Education/Counseling: No Family Present Departure 1 Departure Time of Disposition: 17:01 (Patient has had multiple seizures. We will patient for further workup) Impression: Primary Impression: Seizure disorder Additional Impressions: Breakthrough seizure Left shoulder pain Qualified Codes: M25.512 - Pain in left shoulder Dislocation of left shoulder joint Qualified Codes: S43.005A - Unspecified dislocation of left shoulder joint, initial encounter Disposition: ADMITTED INPATIENT Admit to: Med Surg Condition: Serious Comments 24-year-old male with known seizure disorder presented to the emergency department after seizure prior to arrival to the ED. Patient another seizure in the lobby. While patient was being treated in the treatment area inside of the emergency department he had another witnessed seizure. Ativan and Keppra administered. Patient admitted to hospitalist service for further treatment, evaluation and monitoring. Critical Care Note Critical Care Time?: No Stability Stability form required: No Heart Score Heart Score: Heart Score Response (Comments) Value History N/A 0 EKG N/A 0 Age N/A 0 Risk Factors N/A 0 Troponin N/A 0 Total 0 I personally scribed for ANISH ROLAND MD ([email or web address]) on 03/01/25 at 03:48. Electronically submitted by Vijay Renteria ([email or web address]). ANISH ROLAND MD March 01, 2025 03:48 JULIAN HEARD MD March 01, 2025 17:01
[2025-03-01] MEDS: LORazepam 2MG/ML-1ML VIAL IV ONE ×2 (03:58→19:39)
[2025-03-01 04:15] VITALS: PULSE 87; RESP 18; O2SAT 95
[2025-03-01 04:21] LABS: Basophils # (auto) 0 10 ^3/uL (0-0.2); Basophils % (auto) 0.7 % (0.0-2.0); Eosinophils # (auto) 0.2 10 ^3/uL (0-0.8); Eosinophils % (auto) 3.1 % (0.0-7.0); Hematocrit 45.9 % (41.0-53.0); Hemoglobin 15.1 g/dL (13.5-17.5); Lymphocytes # (auto) 1.8 10 ^3/uL (0.4-5.4); Mean Corpuscular Hemoglobin 29.7 pg (28.0-32.0); Mean Corpuscular Hgb Conc. 32.9 g/dL (32.0-36.0); Mean Corpuscular Volume 90.2 fL (80.0-100.0); Monocytes # (auto) 0.4 10 ^3/uL (0-1.3); Monocytes % (auto) 6.9 % (0.0-12.0); Neutrophils # (auto) 3.6 10 ^3/uL (1.6-8.6); Neutrophils % (auto) 59.3 % (37.0-80.0); Nucleated Red Blood Cells % 0.2 %; Platelet Count (auto) 219 10^3/uL (140-450); Red Blood Cells 5.08 10^6/uL (4.5-5.90); White Blood Cell 6.1 10^3/uL (4.4-10.8)
[2025-03-01 04:26] LABS: Alanine Aminotransferase 18 U/L (7-40); Albumin 4.7 g/dL (3.2-4.8); Alkaline Phosphatase 108 U/L (46-116); Anion Gap 13 (5-15); BUN/Creatinine Ratio 17.9 (10.0-20.0); Blood Urea Nitrogen 15 mg/dL (9-23); Calcium 9.9 mg/dL (8.7-10.4); Glucose 98 mg/dL (74-106); Potassium 3.8 mmol/L (3.5-5.1); Sodium 139 mmol/L (136-145); Total Protein 7.4 g/dL (5.7-8.2)
[2025-03-01 04:27] LABS: Bilirubin, Total 0.4 mg/dL (0.2-1.0)
[2025-03-01 04:28] LABS: Aspartate Aminotransferase 11 U/L (13-40); Carbon Dioxide 18 mmol/L (20-31); Chloride 108 mmol/L (98-107)
--- NOTE | 2025-03-01 04:31 | DVH ---
EXAM: XY L SHOULDER 2+ VIEW XRAY HISTORY: Left shoulder pain, hx chronic dislocation COMPARISON: XY L SHOULDER 1V XRAY on DOS: 02/24/25, XY L SHOULDER 2+ VIEW XRAY on DOS: 02/24/25, XY L HIPOLITO ULDER 2+ VIEW XRAY on DOS: 02/04/25, XY L SHOULDER 2+ VIEW XRAY on DOS: 01/26/25, XY L SHOULDER 2+ VIEW XRAY on DOS: 01/10/25 TECHNIQUE: 2 views of the left shoulder were performed. FINDINGS/IMPRESSION: 1. No acute fracture or dislocation of the left shoulder. 2. Glenohumeral osteoarthritis and 2 screw fixation of the glenoid re-identified.
--- NOTE | 2025-03-01 04:32 | DVH ---
EXAM: XY CHEST XRAY 1 VIEW HISTORY: Seizure COMPARISON: XY CHEST PORTABLE on DOS: 01/26/25, XY CHEST XRAY 1 VIEW on DOS: 07/05/24, XY CHEST XRAY 1 EW on DOS: 07/14/23 TECHNIQUE: Portable upright AP view of the chest was performed. FINDINGS: No pneumothorax, consolidative infiltrates, or pulmonary edema. The heart is not enlarged. There is t horacic scoliosis. There are postoperative changes of left glenoid 2 screw fixation. IMPRESSION: No acute intrathoracic process.
[2025-03-01] MEDS: KETOROLAC TROMETH 30 MG/ML 1ML VIAL IV ONE (13:36)
--- NOTE | 2025-03-01 13:57 | DVH ---
CLINICAL INDICATION: increasing shoulder pain, please redo TECHNIQUE: XY L SHOULDER 2+ VIEW XRAY Comparison: XY L SHOULDER 2+ VIEW XRAY on DOS: 03/01/25, XY L SHOULDER 1V XRAY on DOS: 02/24/25, XY L HIPOLITO ULDER 2+ VIEW XRAY on DOS: 02/24/25, XY L SHOULDER 2+ VIEW XRAY on DOS: 02/04/25, XY L SHOULDER 2+ VIEW XRAY on DOS: 01/26/25 FINDINGS/IMPRESSION: : Surgical screw fixation of the left humerus. No joint dislocation or displaced fracture. Superimposed acute injury is cannot completely excluded. Clinical correlation advised.
[2025-03-01 14:18] VITALS: PULSE 85; RESP 15; O2SAT 97
[2025-03-01] MEDS: PROPOFOL 10 MG/ML 20 ML IV ONE (14:35)
--- NOTE | 2025-03-01 17:19 | DVHHP2 ---
History of Present Illness Reason for Visit: seizure History of Present Illness 24-year-old male with a history of seizure disorder and recent left shoulder surgery who presents following a [place] a [place] station. The patient reports he has been compliant with his prescribed Keppra 2500 mg daily, though he admits to a similar seizure approximately two weeks ago. In the ED, he was alert but slow to respond. On physical exam, he is sedated but arousable, able to answer questions with effort. He denies recent trauma, although he does report ongoing left shoulder pain, which is likely related to his prior surgical history. Alcohol level was mildly elevated at 33.6, but the patient denies recent alcohol use in the past few weeks. ED workup included CBC and CMP, both unremarkable. X-ray of the left shoulder showed post-operative changes but no evidence of acute fracture or dislocation. Chest X-ray was unremarkable. CT brain was not performed in the ED but is now ordered. Neurology consultation is requested to guide further seizure management. The patient will be admitted to telemetry for monitoring. Past Medical History see hpi above Past Surgical History see hpi above Family History Reviewed, non-contributory to the management of this case. Past Social History The patient lives at home, denies smoking, alcohol or illicit drugs abuse. Review of Systems Constitutional: No: Fever, Chills, Sweats, Weakness, Malaise, Other Eyes: No: Pain, Vision change, Conjunctivae inflammation, Eyelid inflammation, Other, Redness ENT: No: Ear pain, Ear discharge, Nose pain, Nose discharge, Nose congestion, Mouth pain, Mouth swelling, Throat pain, Throat swelling, Other Respiratory: No: Cough, Dry, Shortness of breath, SOB with excertion, Wheezing, Hemoptysis, Pleuritic Pain, Sputum, Wheezing, Other Cardiovascular: No: Chest Pain, Palpitations, Orthopnea, Paroxysmal Noc. Dyspnea, Edema, Lt Headedness, Other Gastrointestinal: No: Nausea, Vomiting, Abdominal Pain, Diarrhea, Constipation, Melena, Hematochezia, Other Genitourinary: No Dysuria, No Frequency, No Incontinence, No Hematuria, No Retention, No Other Musculoskeletal: shoulder pain; No: other, neck pain, arm pain, back pain, hand pain, leg pain, foot pain Skin: No: Rash, Lesions, Jaundice, Bruising, Other Neurological: No: Weakness, Numbness, Incoordination, Change in speech, Confusion, Seizures, Other Allergies: Coded Allergies: NO KNOWN ALLERGIES (Unverified , 04/04/10) Exam Vital Signs Vital Signs Date Time Temp Pulse Resp B/P (MAP) Pulse Ox O2 Delivery O2 Flow Rate FiO2 03/01/25 16:15 63 12 97/60 (72) 97 03/01/25 14:18 Room Air* 0 21 03/01/25 14:17 98.0 98.0 General Appearance: Alert, Cooperative, No acute distress HEENT: Atraumatic, PERRLA, EOMI, Mucous membr. moist/pink Respiratory: Clear to auscultation, Normal air movement Cardiovascular: Regular rate, Normal S1, Normal S2, No murmurs Abdominal: Normal bowel sounds, Soft, No tenderness, No hepatospenomegaly, No masses Extremities: No clubbing, No cyanosis, No edema, Normal pulses, No tenderness/swelling, Other (left shoulder with sling no deformity seen) Skin: No rashes, No breakdown, No significant lesion Neuro: Normal gait, Normal speech, Strength at 5/5 X4 ext, Normal tone, Sensation intact, Cranial nerves 3-12 NL Psych/Mental Status: Mental status NL, Mood NL Labs/Xrays X-ray of the left shoulder without fracture deformity Chest x-ray unremarkable I reviewed labs, imaging CT scan abdomen pelvis, EKG and all diagnostic studies on this patient from ED records and the medical chart Labs Test 03/01/25 09:00 03/01/25 03:47 Range/Units White Blood Count 6.1 4.4-10.8 10^3/uL Red Blood Count 5.08 4.5-5.90 10^6/uL Hemoglobin 15.1 13.5-17.5 g/dL Hematocrit 45.9 41.0-53.0 % Mean Corpuscular Volume 90.2 80.0-100.0 fL Mean Corpuscular Hemoglobin 29.7 28.0-32.0 pg Mean Corpuscular Hemoglobin Concent 32.9 32.0-36.0 g/dL Red Cell Distribution Width 16.0 H 11.8-14.3 % Platelet Count 219 140-450 10^3/uL Mean Platelet Volume 7.4 6.9-10.8 fL Neutrophils (%) (Auto) 59.3 37.0-80.0 % Lymphocytes (%) (Auto) 30.0 10.0-50.0 % Monocytes (%) (Auto) 6.9 0.0-12.0 % Eosinophils (%) (Auto) 3.1 0.0-7.0 % Basophils (%) (Auto) 0.7 0.0-2.0 % Neutrophils # (Auto) 3.6 1.6-8.6 10 ^3/uL Lymphocytes # (Auto) 1.8 0.4-5.4 10 ^3/uL Monocytes # (Auto) 0.4 0-1.3 10 ^3/uL Eosinophils # (Auto) 0.2 0-0.8 10 ^3/uL Basophils # (Auto) 0 0-0.2 10 ^3/uL Nucleated Red Blood Cells 0.2 % Sodium Level 139 136-145 mmol/L Potassium Level 3.8 3.5-5.1 mmol/L Chloride Level 108 H 98-107 mmol/L Carbon Dioxide Level 18 L 20-31 mmol/L Anion Gap 13 5-15 Blood Urea Nitrogen 15 9-23 mg/dL Creatinine 0.84 0.700-1.30 mg/dL Glomerular Filtration Rate Calc 123 >90 mL/min BUN/Creatinine Ratio 17.9 10.0-20.0 Serum Glucose 98 74-106 mg/dL Calcium Level 9.9 8.7-10.4 mg/dL Total Bilirubin 0.4 0.2-1.0 mg/dL Aspartate Amino Transferase (AST) 11 L 13-40 U/L Alanine Aminotransferase (ALT) 18 7-40 U/L Alkaline Phosphatase 108 46-116 U/L Total Protein 7.4 5.7-8.2 g/dL Albumin 4.7 3.2-4.8 g/dL Plasma/Serum Blood Alcohol 33.6 H <10 mg/dL Assessment/Plan Assessment/Plan 24-year-old male with known seizure disorder and recent left shoulder surgery pr esenting with new seizure, mild alcohol level elevation, and post-ictal confusion. acute breakthrough seizure Witnessed seizure at [facility] station ordered ct scan brain fu results ordered Ativan as needed for breakthrough seizures [place]ed seizure at gas station On Keppra 2500 mg daily, reportedly compliant Increase Keppra to 3000 mg/day (1500 mg BID) per neurology guidance History of seizure 2 weeks ago Admit to telemetry unit Initiate seizure precautions ordered Ativan PRN for breakthrough seizure activity Neurology consult for medication adjustment and EEG consideration acute Post-ictal state Sedated but arousable on arrival Slowed response time, gradually improving Plan: Frequent neuro checks Monitor for progression or return to baseline Hold off on any sedating medications unless necessary acute on chronic Shoulder Pain, s/p Surgery Left shoulder tenderness, no acute injury X-ray shows prior surgical changes Plan: Pain control with Tylenol or NSAIDs if renal function stable Avoid opioids due to sedation and seizure history Re-evaluate shoulder once more alert Mild Alcohol Level Elevation Level 33.6 mg/dL Denies recent intake, unclear if contributory Plan: Monitor for withdrawal symptoms CIWA assessment not indicated at this time Reinforce avoidance of alcohol due to seizure risk Problem List Seizure disorder Post-surgical shoulder pain FEN / PROPHYLAXIS (PPx) Fluids/Electrolytes/Nutrition IV fluids as needed for hydration npo until more alert then Advance diet as tolerated DVT Prophylaxis SCDs while in bed GI Prophylaxis none since no hx of gerds or gi bleed DISPOSITION Admit to telemetry unit for seizure monitoring, Keppra dose adjustment, and neurologic evaluation. CT brain and neurology consult pending. Continue seizure precautions and supportive care Plan discussed with: Patient Date of Service: March 01, 2025 Billing Provider: FATMATA VERMA DNP Common Visit Codes: [id number] INP/OBS CARE (HIGH) FATMATA VERMA DNP March 01, 2025 17:19
[2025-03-01] MEDS ORDERED: DOCUSATE SOD 100 MG CAP PO PRN (18:45)
[2025-03-01] MEDS ORDERED: NITROGLYCERIN 0.4 MG SL TAB SL PRN (18:45)
[2025-03-01] MEDS ORDERED: ONDANSETRON HCL 4 MG/2 ML VIAL IV PRN (18:45)
[2025-03-01] MEDS: levETIRAcetam 1500 mg/100ml 100 ML IV SCH (20:00)
[2025-03-01 21:00] VITALS: PULSE 96; RESP 16; O2SAT 96
[2025-03-01 21:56] VITALS: BP 148/51; PULSE 80; RESP 19; TEMP 97.7; O2SAT 93
[2025-03-01] MEDS: MORPHINE SULFATE INJ 2 MG/ml SYRG IV PRN (23:58)
[2025-03-02] VITALS (8 sets, daily range): BP systolic 97–119; BP diastolic 46–76; PULSE 58–93; RESP 15–19; TEMP 97.2–98.2; O2SAT 94–97
[2025-03-02] MEDS: SODIUM CHLORIDE 0.9% 1,000 ML IV SCH (00:03)
[2025-03-02] MEDS: LORazepam 2MG/ML-1ML VIAL IV PRN (00:13)
[2025-03-02 06:41] LABS: Urine Bacteria None Seen /hpf (None Seen)
[2025-03-02 06:52] LABS: Urine Blood Negative /uL (Negative); Urine Clarity Clear (Clear); Urine Color Yellow (Yellow); Urine Protein, UAD Negative (Negative); Urine Specific Gravity 1.026 (1.001-1.035); Urine Squamous Epithelial Cell None Seen /hpf (<5); Urine Urobilinogen Normal (Negative); Urine WBC < 1 /HPF (0-3)
[2025-03-02 07:04] LABS: Opiate Scree,Urine Neg (NEGATIVE)
[2025-03-02 07:05] LABS: Amphetamine Screen, Urine Pos (NEGATIVE); Barbiturate Scree,Urine Neg (NEGATIVE); Benzodiazephine Screen, Urine Neg (NEGATIVE); Cannabinoid Screen, Urine Pos (NEGATIVE); Cocaine Screen, Urine Pos (NEGATIVE); Phencyclidine Screen, Urine Neg (NEGATIVE)
[2025-03-02 07:36] LABS: Basophils # (auto) 0.1 10 ^3/uL (0-0.2); Basophils % (auto) 0.9 % (0.0-2.0); Eosinophils # (auto) 0.2 10 ^3/uL (0-0.8); Eosinophils % (auto) 4.2 % (0.0-7.0); Hematocrit 40.9 % (41.0-53.0); Hemoglobin 13.7 g/dL (13.5-17.5); Lymphocytes # (auto) 1.9 10 ^3/uL (0.4-5.4); Lymphocytes % (auto) 33.6 % (10.0-50.0); Mean Corpuscular Hemoglobin 29.6 pg (28.0-32.0); Mean Corpuscular Hgb Conc. 33.4 g/dL (32.0-36.0); Mean Corpuscular Volume 88.5 fL (80.0-100.0); Monocytes # (auto) 0.3 10 ^3/uL (0-1.3); Monocytes % (auto) 6.1 % (0.0-12.0); Neutrophils # (auto) 3.1 10 ^3/uL (1.6-8.6); Neutrophils % (auto) 55.2 % (37.0-80.0); Nucleated Red Blood Cells % 0.1 %; Platelet Count (auto) 236 10^3/uL (140-450); Red Blood Cells 4.62 10^6/uL (4.5-5.90); Red Cell Distribution Width 15.3 % (11.8-14.3); White Blood Cell 5.5 10^3/uL (4.4-10.8)
[2025-03-02 07:56] LABS: Alanine Aminotransferase 14 U/L (7-40); Alkaline Phosphatase 88 U/L (46-116); Anion Gap 7 (5-15); BUN/Creatinine Ratio 16.5 (10.0-20.0); Bilirubin, Total 0.5 mg/dL (0.2-1.0); Blood Urea Nitrogen 14 mg/dL (9-23); Carbon Dioxide 23 mmol/L (20-31); Glucose 83 mg/dL (74-106); Potassium 4.3 mmol/L (3.5-5.1); Sodium 140 mmol/L (136-145); Total Protein 6.1 g/dL (5.7-8.2)
[2025-03-02 08:06] LABS: Aspartate Aminotransferase 9 U/L (13-40); Calcium 8.7 mg/dL (8.7-10.4); Chloride 110 mmol/L (98-107)
[2025-03-02 08:56] LABS: Magnesium 1.9 mg/dL (1.6-2.6)
--- NOTE | 2025-03-02 09:47 | DVHPNRES ---
Progress Note Date Seen: March 02, 2025 Resident Creating Document: MODESTA CHU RESIDENT Medical Necessity Reason Pt with a Central, PICC or Fol: No Subjective Review of Systems NEW OLMSTEAD is a 24 years old male with a history of seizure disorder and recent left shoulder surgery presented to the ED after witnessing seizure event. . The patient reports he has been compliant with his prescribed Keppra 2500 mg daily, though he admits to a similar seizure approximately two weeks ago. In the ED, he was alert but slow to respond. On physical exam, he is sedated but arousable, able to answer questions with effort. He denies recent trauma, although he does report ongoing left shoulder pain, which is likely related to his prior surgical history. Alcohol level was mildly elevated at 33.6, but the patient denies recent alcohol use in the past few weeks. Patient reported his alcohol drink was 3 days back. PMH: Seizure disorder PSH: Recent left shoulder surgery Family history: Noncontributory Social history: Lives at home. Occasional alcohol use but denies smoking and other drug abuse but drug screen positive for marijuana and cocaine Allergies: No known allergies Patient seen and examined at the bedside. Patient is drowsy and poorly able to answer questions. Ordered head CT, consulted Neurology for further evaluation. Objective vital signs Vital Sign Date Time Temp Pulse Resp B/P (MAP) Pulse Ox O2 Delivery O2 Flow Rate FiO2 03/02/25 08:00 76 16 98/61 03/02/25 05:00 97.2 95 97.2 03/01/25 22:26 Room Air* 0 21 Total Intake and Output 03/01/25 03/01/25 03/02/25 15:00 23:00 07:00 Intake Total 100 ml 940 ml Balance 100 ml 940 ml medications Current Medications Medications Dose Ordered Sig/Anuj Route Start Time Stop Time Status Last Admin Dose Admin Sodium Chloride 1,000 ml @ 120 mls/hr Q8H20M IV 03/01/25 18:45 03/02/25 09:10 120 MLS/HR Ondansetron HCl 4 mg Q4HP PRN IV 03/01/25 18:45 Docusate Sodium 100 mg BIDPRN PRN PO 03/01/25 18:45 Morphine Sulfate 2 mg Q4HPRN PRN IV 03/01/25 18:45 03/02/25 06:31 2 MG Nitroglycerin 0.4 mg Q5MINP PRN SL 03/01/25 18:45 Levetiracetam 100 ml @ 400 mls/hr BID IV 03/01/25 22:00 03/02/25 09:10 400 MLS/HR Lorazepam 1 mg Q5MINP PRN IV 03/01/25 18:45 03/02/25 06:58 1 MG Folic Acid 1 mg/ Multivitamins 10 ml/Magnesium Sulfate 8 meq/ Thiamine HCl 100 mg/Dextrose 1,013.2 ml @ 125.001 mls/hr DAILY@1800 INJ 03/02/25 18:00 Ergocalciferol 50,000 unit Q7D PO 03/02/25 09:45 Examination Pt is lying on bed General Appearance: drowsy, Oriented X3, Cooperative, Mild distress HEENT: Atraumatic, Mucous membranes moist/pink Respiratory: Clear to auscultation, Normal air movement, No added sounds Cardiovascular: Regular rate, Normal S1, Normal S2, No murmurs Abdominal: Active bowel sounds, Soft, no distention, no tenderness Extremities: No edema, Normal pulses, No tenderness/swelling Bilateral shoulder joint tenderness Skin: No Significant rash, except past surgical scars Neuro: Normal speech, sensorimotor deficits none Psych/Mental Status: Mental status NL, Mood NL Nurse was there as tomasne during examination laboratory and microbiology Laboratory Tests 03/02/25 06:24 Test 03/02/25 06:24 Range/Units Serum Glucose 83 74-106 mg/dL Labs and/or images reviewed: Labs reviewed by me, Image(s) reviewed by me Problem List/Assessment/Plan Problem List/Assessment/Plan # Acute breakthrough grand mal seizure vs alcohol withdrawal # history of seizures # mild alcoholic intoxication # polysubstance abuse ( marijuana, cocaine, methamphetamines ) # ? Toxic or metabolic encephalopathy likely due to above # ? Possible postictal state - ordered head CT - currently on Keppra b.i.d. and Ativan p.r.n. - banana bag - IVF - Drug screen positive for alcohol, methamphetamine, cocaine, cannabinoids - counseled regarding cessation for more than 17 minutes - neurology consult on board - unable to obtain CIWA score as patient is drowsy -we will start Librium if needed # Vit D deficiency - Repleting No GI PPX needed No VTE PPX needed as patient is ambulatory Regular diet if tolerates Goals of care discussed with the patient for more than 29 minutes: Full code status Case discussed with Dr. Hagen, patient and RN Plan discussed with: Patient My Orders My Orders Orders - MODESTA CHU Procedure Category Date Status Time Ammonia LAB 03/02/25 In Process 08:19 Rapid Influenza A&B LAB 03/02/25 Logged 08:19 Covid19 Antigen Janina LAB 03/02/25 Logged 08:19 Lactic Acid W/ Reflex LAB 03/02/25 In Process Order 08:[address] 03/02/25 Logged 09:37 Folic Acid... PHA 03/02/25 Logged 18:00 Ergocalciferol PHA 03/02/25 Logged (Vitamin D 50,000 09:45 Date of Service: March 02, 2025 Billing Provider: NELLA POST MD Common Visit Codes: [id number] INP/OBS CARE(HIGH) MODESTA CHU March 02, 2025 09:47 NELLA POST MD March 13, 2025 02:30
[2025-03-02 10:22] LABS: Lactic Acid w/Reflex 2.4 mmol/L (0.4-2.0)
[2025-03-02] MEDS: ERGOCALCIFEROL 50,000 UNIT(1.25MG) CAP PO SCH (10:31)
--- NOTE | 2025-03-02 10:34 | DVH ---
EXAM: CT HEAD WITHOUT CONTRAST HISTORY: Fall after seizure, hit his head COMPARISON: CT HEAD WITHOUT CONTRAST on DOS: 02/04/25, CT HEAD WITHOUT CONTRAST on DOS: 01/26/25 TECHNIQUE: Axial images of the head were obtained and reformatted in coronal and sagittal planes. All CT scans at this medical facility are performed using dose modulation techniques as appropriate t o a performed exam including the following: Automated exposure control was utilized; adjustment of th e MA and/or KV according to patient size; and use of iterative reconstruction technique. CT Dose: CTDI volume is 60.28 mGy. Dose-length product is 1187.81 mGy*cm FINDINGS: There is no evidence of acute intracranial hemorrhage, mass, mass effect midline shift. There is no h ydrocephalus or extra-axial fluid collection. Wade-white matter differentiation is maintained. The visualized paranasal sinuses and mastoid air cells are clear. The calvarium is intact. IMPRESSION: 1. No acute intracranial process. HS:Y
[2025-03-02] MEDS ORDERED: HALOPERIDOL LACTATE 5 MG/ML INJ VIAL IM PRN (16:45)
--- NOTE | 2025-03-02 16:48 | DVH ---
CLINICAL INDICATION: looks like dislocated ; trauma TECHNIQUE: 3 radiographic views of the left shoulder were obtained. 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 No significant change compared to prior exam.
[2025-03-02] MEDS: HALOPERIDOL LACTATE 5 MG/ML INJ VIAL ONE (16:51)
[2025-03-02] MEDS: FOLIC ACID 1 MG, MULTIPLE VITAMIN 10 ML, MAGNESIUM SULF SDV 50% 8 MEQ, THIAMINE INJ 100... INJ SCH (18:01)
--- NOTE | 2025-03-02 19:28 | DVHINCON2 ---
Consult Note Consult Consult Note Orthopedic Consult Note Patient: 24-year-old male Reason for Consult: Evaluation of left shoulder pain with radiographic evidence of inferior subluxation in the setting of recurrent seizures and prior surgical repair. Requesting Team: Inpatient hospitalist service --- History of Present Illness: The patient is a 24-year-old male with a known history of recurrent seizures and prior left shoulder dislocation, for which he underwent glenoid surgical repair. Despite surgical intervention, the patient continues to experience recurrent seizure episodes, reportedly secondary to drug use. He is currently admitted to the inpatient unit and was referred to orthopedics by the hospitalist team following a left shoulder X-ray that demonstrated findings concerning for inferior chronic subluxation. The patient was previously evaluated and referred to [facility] for higher-level orthopedic care but has not yet followed up with them. No acute dislocation was seen on todays imaging. --- Exam: Left Shoulder: Range of motion: Limited in all planes No gross instability on palpation No swelling or erythema Neurovascular status: Intact distally --- Imaging: Left Shoulder X-ray: Mild inferior chronic subluxation of the humeral head, no hardawre loosening from prior surgery No acute fracture or dislocation Signs of prior surgical intervention --- Assessment: 1. 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 History of recurrent seizures, contributing to ongoing shoulder instability 3. Noncompliance with follow-up at higher-level care facility ([facility]) --- Plan: Patient discussed with Dr. Garcia, who recommends referral to [facility] for specialized management of chronic shoulder subluxation. No evidence of acute dislocation; patient is currently stable from an orthopedic standpoint. Encouraged follow-up at [facility] as previously arranged. Recommendations reviewed with hospitalist team. No surgical intervention recommended at this time from orthopedic standpoint. --- Disposition: Stable for discharge from orthopedic perspective once medically cleared. Reinforce importance of higher-level orthopedic follow-up. Plan discussed with: Patient, Other (bedside nurse) Visit Coding Surgery Date of Service if different f: March 02, 2025 Billing Provider: PARUL SHAH Surgery Visit Codes: [id number] - INP CONSULT <55 MIN PARUL SHAH March 02, 2025 19:28
--- NOTE | 2025-03-02 22:43 | DVHINCON2 ---
Date of service: March 02, 2025 Referring Physician Angie Pires for Consultation Acute breakthrough seizure History of Present Illness Mr. Vazquez is a 24 years old gentleman with a history of seizure disorder, left showed fracture (fixed on 07/06/2024), the patient came to the hospital on 03/01/2025 for seizure activity. At this time, he is alert and oriented I saw him on 09/16/2017, 09/28/2017, 07/07/24, 07/12/2024, 08/26/2024, 12/03/2024 for seizure activity. He was brought to the [facility] on 03/01/2025 because of witnessed seizure activity at a gas these. He tells me he was on Keppra and Depakote but he does not remember the dosage. According our record, Keppra 1000 mg b.i.d., Depakote 500 mg b.i.d. In the hospital, he was found to have elevated alcohol level, he urine screening tests showed cocaine, amphetamine, cannabinoids His Keppra has been increased to 1500 mg b.i.d. on 03/02/25 According to my consult report dated 09/28/2017, his mother reported that his seizure started when he was 1-year-old, it was generalized shaking with loss of consciousness and post ictal confusion On 09/28/17 I witnessed a seizure attack. The seizure started with head bending over, eyes closing and nonresponsiveness, whole-body stiffed up, he made tight fists, arms closed to the chest, legs mildly flexed in the hips and knees, toes flexed. There was a very strong resistance to passive eye opening, I was able to open his eyes once, and I saw dilated pupil with good reflexes. The color of his face, lips were normal. The whole seizure was about 15 minutes. Soon after he woke up, he requested food. 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 According to my progress note dated on 09/29/2017, the patient had numerous seizures with atypical feature On 07/07/2024, he reported all his seizure breakthrough where street drug related He saw a neurologist in the [facility] previously UDS, 07/05/2024: Cocaine, 03/02/25: Amphetamine, cocaine, cannabinoids Plasma alcohol, 08/26/2024: Normal, 03/01/2025: 33.6 CBC, 03/02/2025: unremarkable lactic acid, 03/02/2025: 2.4, 1.5 CMP, 03/02/2025: Unremarkable Vitamin B12, 03/02/2025: 203 TSH, 03/02/2025: 1.13 X-ray, left Shoulder, 12/02/2024: Anterior glenohumeral dislocation with old osseous Bankart injury status post surgical fixation, and Hill-Sachs lesion, likely chronic. Posttraumatic osteoarthritis of the glenohumeral joint. No acute fracture X-ray, left shoulder, 03/02/2025: Postsurgical changes are visualized in the left humerus with severe osteoarthrosis of the left glenohumeral joint. No significant change compared to prior exam. CT head, 07/05/2024: 1. No intracranial abnormality detected. 2. No acute infarct or space occupying lesion is seen. 3. No intracranial hemorrhage or calvarial fracture CT head, 07/12/2024: No acute intracranial abnormality CT head, 08/26/2024: 1. No evidence of calvarial fracture or extra-axial collection. 2. No acute intracranial abnormality. No evidence of acute infarct or intracranial hemorrhage. 3. Wade-white matter differentiation is well maintained. 4. S-shaped deviation of the nasal septum. Mucosal thickening in the left maxillary sinus, measuring up to [address] head, 03/02/2025: No acute intracranial process CT shoulder, 09/29/17:1. Large Hill-Sachs fracture of the humeral head measuring 24 mm in length and 7 mm in depth as above. 2. A 9 x 4 mm bone fragment along the anterior aspect of the scapular body may reflect medially displaced bony Bankart fracture fragment or avulsion fracture from the glenoid attachment of the anterior band of the inferior glenohumeral ligament. 3. Large glenohumeral joint effusion. 4. No evidence of glenohumeral dislocation though there is slight anterior decentering of the humeral head . Consider correlation with MRI for better evaluation of soft tissue structures such including the labrum as clinically warrante CT left shoulder, 07/05/2024: 1. Anterior glenohumeral joint dislocation. Acute hill-Sachs fracture. Acute comminuted and displaced osseous Bankart. Joint effusion. 2. Left basilar atelectasis. CT, left shoulder, 08/26/2024: 1. 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 2. Flattening of the glenoid fossa and humeral head. 3. A few periarticular osteophytes are seen arising from the glenoid and humeral head, suggestive of degenerative osteoarthritis Past Medical History Seizures, Left shoulder dislocation Past Surgical History Left shoulder fracture repair Family History: Patient reports no known family medical history. Family History No major medical history Social History Non-Smoker Alcohol: Occasionally Drugs: Marijuana, history of street drugs Lives In: Home Allergies: Coded Allergies: NO KNOWN ALLERGIES (Unverified , 04/04/10) Home Meds Active Scripts Hydrocodone-Acetaminophen (Hydrocodone Bitartrate/AC 5-325 mg) 1 Tab Tab, 1 TAB PO Q8HP PRN for 6 Days, #18 TAB Prov:TANO VOSS MD 02/24/25 Levetiracetam (Keppra) 1,000 Mg Tab, 1 TAB PO BID, #60 TAB 5 Refills Prov:JACKELYN SANCHEZ MD 07/13/24 Current Medications Current Medications Medications (Trade) Dose Ordered Sig/Anuj Route PRN Reason Start Time Stop Time Status Last Admin Folic Acid 1 mg/ Multivitamins 10 ml/Magnesium Sulfate 8 meq/ Thiamine HCl 100 mg/Dextrose 1,013.2 ml @ 125.001 mls/hr DAILY@1800 INJ 03/02/25 18:00 03/02/25 18:01 Ergocalciferol (Vitamin D 50,000 Unit) 50,000 unit Q7D PO 03/02/25 09:45 03/02/25 10:31 Haloperidol Lactate (Haldol) 10 mg Q8HP PRN IM AGITATION 03/02/25 16:45 Review of Systems As above, the other systems are negative Vital Signs Vital Signs Date Time Temp Pulse Resp B/P (MAP) Pulse Ox O2 Delivery O2 Flow Rate FiO2 03/02/25 21:00 97.6 64 17 101/65 (77) 97 97.6 03/02/25 08:00 Room Air* 0 21 Physical Exam GENERAL EXAM: General: the patient is well developed and nourished. No acute distress. HEENT: Normocephalic, neck is supple, no carotid bruits. No mass. RESPIRATORY: Normal respiratory effort with symmetrical lung expansion. Lungs clear to auscultation. CARDIOVASCULAR: Regular rate and rhythm with no murmurs. S1, S2. ABDOMEN: Soft, nontender, normal bowel sound Tenderness to palpation in the left shoulder NEUROLOGICAL: MENTAL STATUS: Awake and alert. Oriented x 3 SPEECH, LANGUAGE, HIGHER CORTICAL FUNCTION: no aphasia or dysathria. CRANIAL NERVES: #2: Intact visual camara to confrontation. #3,4,6: Pupils are equal, round and reactive. EOMs full and conjugate. No nystagmus. #5: Facial sensation intact in all three divisions bilaterally. Mandibular strength intact. #7: Facial muscles symmetrical and strength intact. #8: Hearing grossly normal to voice. #9,10: Uvula and soft palate rise in the midline. Swallow and voice are normal. #11: Trapezius and sternomastoid strength intact bilaterally. #12: Tongue midline. No fasciculations or atrophy. SENSATION: Sensation to touch and pinprick is normal. MOTOR: Normal tone in the upper and lower extremity. Normal muscle bulk. No fasciculations. No abnormal movements or posturing. Muscle strength of the major groups in the extremities is 5/5 except weakness in the left upper extremity secondary to local pain. REFLEXES: Deep tendon reflexes normal and symmetrical. No pathological reflexes. CEREBELLAR/COORDINATION: Finger to nose are normal bilaterally. GAIT/STATION: Unremarkable Labs/Diagnostic Data Labs Test 03/02/25 16:10 03/02/25 13:21 03/02/25 09:12 03/02/25 06:30 Range/Units POC Glucose 88 70-106 mg/dl Lactic Acid Level 1.5 0.4-2.0 mmol/L Ammonia 40 H 11-32 umol/L Urine Color Yellow Yellow Urine Clarity Clear Clear Urine pH 6.0 5.0-9.0 Urine Specific [place] 1.026 1.001-1.035 Urine Protein Negative Negative Urine Ketones Negative Negative Urine Blood Negative Negative /uL Urine Nitrite Negative Negative Urine Bilirubin Negative Negative Urine Urobilinogen Normal Negative mg/dL Urine Leukocyte Esterase Negative Negative /uL Urine RBC <1 0 - 3 /hpf Urine Microscopic WBC < 1 0-3 /HPF Urine Squamous Epithelial Cells None seen <5 /hpf Urine Bacteria None seen None Seen /hpf Urine Glucose Normal Normal mg/dL Urine Opiates Screen Neg NEGATIVE Urine Fentanyl Screen Neg NEGATIVE Urine Barbiturates Screen Neg NEGATIVE Urine Phencyclidine Screen Neg NEGATIVE Urine Amphetamines Screen Pos NEGATIVE Urine Benzodiazepines Screen Neg NEGATIVE Urine Cocaine Screen Pos NEGATIVE Urine Cannabinoids Screen Pos NEGATIVE Test 03/02/25 06:24 03/01/25 09:00 03/01/25 03:47 Range/Units White Blood Count 5.5 4.4-10.8 10^3/uL Red Blood Count 4.62 4.5-5.90 10^6/uL Hemoglobin 13.7 13.5-17.5 g/dL Hematocrit 40.9 #L 41.0-53.0 % Mean Corpuscular Volume 88.5 80.0-100.0 fL Mean Corpuscular Hemoglobin 29.6 28.0-32.0 pg Mean Corpuscular Hemoglobin Concent 33.4 32.0-36.0 g/dL Red Cell Distribution Width 15.3 H 11.8-14.3 % Platelet Count 236 140-450 10^3/uL Mean Platelet Volume 7.6 6.9-10.8 fL Neutrophils (%) (Auto) 55.2 37.0-80.0 % Lymphocytes (%) (Auto) 33.6 10.0-50.0 % Monocytes (%) (Auto) 6.1 0.0-12.0 % Eosinophils (%) (Auto) 4.2 0.0-7.0 % Basophils (%) (Auto) 0.9 0.0-2.0 % Neutrophils # (Auto) 3.1 1.6-8.6 10 ^3/uL Lymphocytes # (Auto) 1.9 0.4-5.4 10 ^3/uL Monocytes # (Auto) 0.3 0-1.3 10 ^3/uL Eosinophils # (Auto) 0.2 0-0.8 10 ^3/uL Basophils # (Auto) 0.1 0-0.2 10 ^3/uL Nucleated Red Blood Cells 0.1 % Sodium Level 140 136-145 mmol/L Potassium Level 4.3 3.5-5.1 mmol/L Chloride Level 110 H 98-107 mmol/L Carbon Dioxide Level 23 20-31 mmol/L Anion Gap 7 5-15 Blood Urea Nitrogen 14 9-23 mg/dL Creatinine 0.85 0.700-1.30 mg/dL Glomerular Filtration Rate Calc 123 >90 mL/min BUN/Creatinine Ratio 16.5 10.0-20.0 Serum Glucose 83 74-106 mg/dL Hemoglobin A1c 5.2 <5.7 % A1C Calcium Level 8.7 8.7-10.4 mg/dL Magnesium Level 1.9 1.6-2.6 mg/dL Total Bilirubin 0.5 0.2-1.0 mg/dL Aspartate Amino Transferase (AST) 9 L 13-40 U/L Alanine Aminotransferase (ALT) 14 7-40 U/L Alkaline Phosphatase 88 46-116 U/L Creatine Kinase 63 46-171 U/L Total Protein 6.1 5.7-8.2 g/dL Albumin 4.0 3.2-4.8 g/dL Vitamin B12 Level 203 L 211-911 pg/mL Vitamin D 25-Hydroxy 28.0 L 30.0-100 ng/mL Thyroid Stimulating Hormone (TSH) 1.13 0.55-4.78 uIU/mL Plasma/Serum Blood Alcohol 33.6 H <10 mg/dL Assessment Generalized tonic seizure Mixed epileptic and nonepileptic seizure Chronic Left shoulder fracture History of left shoulder dislocation Plan/Recommendation Monitoring Supportive treatment Telemetry Depakote 500 mg b.i.d. Keppra 1500 mg b.i.d. Banana bag Ativan for seizure activity Current pain management Current pain management Avoid alcohol Avoid street drugs He does not drive Orthopedic surgeon consult Follow up with his doctors on discharge Progress: Poor This medical document was created using an electronic medical record system with [email or web address] dictation system. Although this document has been carefully reviewed, there may still be some phonetic and typographical errors. These areas are purely typographical due to imperfections of the software programs, and do not reflect any compromise in the patient's medical care Plan discussed with: Patient, Other PAM TABOR MD March 02, 2025 22:43
[2025-03-03 00:40] LABS: COVID19 ANTIGEN SOFIA FIA NEGATIVE (NEGATIVE); Rapid Influenza A Negative (Negative); Rapid Influenza B Negative (Negative)
[2025-03-03 01:00] VITALS: BP 101/50; PULSE 72; RESP 16; TEMP 98.3; O2SAT 97
[2025-03-03 05:00] VITALS: BP 99/51; PULSE 70; RESP 17; TEMP 97.8; O2SAT 96
[2025-03-03 08:00] VITALS: PULSE 65; PULSE 78; RESP 18; O2SAT 96
[2025-03-03 09:00] VITALS: BP 92/50; PULSE 70; RESP 14; TEMP 97.5; O2SAT 96
[2025-03-03] MEDS ORDERED: SODIUM CHL 0.9% 50 ML ONE (09:29)
[2025-03-03] MEDS ORDERED: ANGIOMAX 250 MG VIAL IV ONE (09:29)
[2025-03-03] MEDS: VALPROATE INJ 500 MG in SODIUM CHL 0.9% 100 ML IV SCH (10:19)
[2025-03-03] MEDS: SODIUM CHLORIDE 0.9% 500 ML IV ONE (12:15)
[2025-03-03 13:00] VITALS: BP 103/65; PULSE 85; RESP 16; TEMP 97.6; O2SAT 97
--- NOTE | 2025-03-03 15:55 | DVHDSRES ---
Discharge Summary Date of Admission Resident Creating Document: MODESTA CHU RESIDENT March 01, 2025 at 18:33 Date of Discharge: March 03, 2025 Admitting Diagnosis Seizures Labs/Diagnostic Data: Laboratory Results Test 03/03/25 00:05 03/02/25 16:10 03/02/25 13:21 03/02/25 09:12 Influenza Type A Antigen Negative (Negative) Influenza Type B Antigen Negative (Negative) SARS-CoV-2 Antigen (Rapid) Negative (NEGATIVE) POC Glucose 88 mg/dl (70-106) Lactic Acid Level 1.5 mmol/L (0.4-2.0) Ammonia 40 umol/L (11-32) Test 03/02/25 06:30 03/02/25 06:24 03/01/25 09:00 03/01/25 03:47 Urine Color Yellow (Yellow) Urine Clarity Clear (Clear) Urine pH 6.0 (5.0-9.0) Urine Specific [place] 1.026 (1.001-1.035) Urine Protein Negative (Negative) Urine Ketones Negative (Negative) Urine Blood Negative /uL (Negative) Urine Nitrite Negative (Negative) Urine Bilirubin Negative (Negative) Urine Urobilinogen Normal mg/dL (Negative) Urine Leukocyte Esterase Negative /uL (Negative) Urine RBC <1 /hpf (0 - 3) Urine Microscopic WBC < 1 /HPF (0-3) Urine Squamous Epithelial Cells None seen /hpf (<5) Urine Bacteria None seen /hpf (None Seen) Urine Glucose Normal mg/dL (Normal) Urine Opiates Screen Neg (NEGATIVE) Urine Fentanyl Screen Neg (NEGATIVE) Urine Barbiturates Screen Neg (NEGATIVE) Urine Phencyclidine Screen Neg (NEGATIVE) Urine Amphetamines Screen Pos (NEGATIVE) Urine Benzodiazepines Screen Neg (NEGATIVE) Urine Cocaine Screen Pos (NEGATIVE) Urine Cannabinoids Screen Pos (NEGATIVE) White Blood Count 5.5 10^3/uL (4.4-10.8) Red Blood Count 4.62 10^6/uL (4.5-5.90) Hemoglobin 13.7 g/dL (13.5-17.5) Hematocrit 40.9 % (41.0-53.0) Mean Corpuscular Volume 88.5 fL (80.0-100.0) Mean Corpuscular Hemoglobin 29.6 pg (28.0-32.0) Mean Corpuscular Hemoglobin Concent 33.4 g/dL (32.0-36.0) Red Cell Distribution Width 15.3 % (11.8-14.3) Platelet Count 236 10^3/uL (140-450) Mean Platelet Volume 7.6 fL (6.9-10.8) Neutrophils (%) (Auto) 55.2 % (37.0-80.0) Lymphocytes (%) (Auto) 33.6 % (10.0-50.0) Monocytes (%) (Auto) 6.1 % (0.0-12.0) Eosinophils (%) (Auto) 4.2 % (0.0-7.0) Basophils (%) (Auto) 0.9 % (0.0-2.0) Neutrophils # (Auto) 3.1 10 ^3/uL (1.6-8.6) Lymphocytes # (Auto) 1.9 10 ^3/uL (0.4-5.4) Monocytes # (Auto) 0.3 10 ^3/uL (0-1.3) Eosinophils # (Auto) 0.2 10 ^3/uL (0-0.8) Basophils # (Auto) 0.1 10 ^3/uL (0-0.2) Nucleated Red Blood Cells 0.1 % Sodium Level 140 mmol/L (136-145) Potassium Level 4.3 mmol/L (3.5-5.1) Chloride Level 110 mmol/L (98-107) Carbon Dioxide Level 23 mmol/L (20-31) Anion Gap 7 (5-15) Blood Urea Nitrogen 14 mg/dL (9-23) Creatinine 0.85 mg/dL (0.700-1.30) Glomerular Filtration Rate Calc 123 mL/min (>90) BUN/Creatinine Ratio 16.5 (10.0-20.0) Serum Glucose 83 mg/dL (74-106) Hemoglobin A1c 5.2 % A1C (<5.7) Calcium Level 8.7 mg/dL (8.7-10.4) Magnesium Level 1.9 mg/dL (1.6-2.6) Total Bilirubin 0.5 mg/dL (0.2-1.0) Aspartate Amino Transferase (AST) 9 U/L (13-40) Alanine Aminotransferase (ALT) 14 U/L (7-40) Alkaline Phosphatase 88 U/L (46-116) Creatine Kinase 63 U/L (46-171) Total Protein 6.1 g/dL (5.7-8.2) Albumin 4.0 g/dL (3.2-4.8) Vitamin B12 Level 203 pg/mL (211-911) Vitamin D 25-Hydroxy 28.0 ng/mL (30.0-100) Thyroid Stimulating Hormone (TSH) 1.13 uIU/mL (0.55-4.78) Levetiracetam Level 29.1 ug/mL (10.0-40.0) Plasma/Serum Blood Alcohol 33.6 mg/dL (<10) Other Laboratory Tests 03/02/25 06:24 Brief Hx & Hospital Course: NEW OLMSTEAD is a 24 years old male with a history of seizure disorder and recent left shoulder surgery presented to the ED after witnessing seizure event. . The patient reports he has been compliant with his prescribed Keppra 2500 mg daily, though he admits to a similar seizure approximately two weeks ago. In the ED, he was alert but slow to respond. On physical exam, he is sedated but arousable, able to answer questions with effort. He denies recent trauma, although he does report ongoing left shoulder pain, which is likely related to his prior surgical history. Alcohol level was mildly elevated at 33.6, but the patient denies recent alcohol use in the past few weeks. Patient reported his alcohol drink was 3 days back. Patient required hospital admission for further evaluation and management of seizures. Ordered a head CT which showed no acute changes. Patient was continuously Motrin for seizures, ordered seizure precautions. Neurology consulted and evaluated the patient and advised to continue Keppra and valproic acid as prescribed. Patient likely noncompliant with his medications because patient unable to remember what medications he is taking for seizures. So patient was advised to report medication adherence and risks of not taking medication. Patient reports very little soft under empiric continuously monitoring his blood pressure but patient unfortunately want to leave hospital against medical advice. Patient agrees to stay for further treatment as stabilization but patient refused status benefits pending risks. Patient verbalized understanding. Patient advised to return ED if seizure recurs. Unable to obtain physical examination due to patient left AMA. # Acute breakthrough grand mal seizure vs alcohol withdrawal # history of seizures # mild alcoholic intoxication # polysubstance abuse ( marijuana, cocaine, methamphetamines ) # ? Toxic or metabolic encephalopathy likely due to above # ? Possible postictal state # Vit D deficiency # Medication noncompliance # Chronic Left shoulder fracture s/p surgery # History of left shoulder dislocation Operations or Procedures CT HEAD WITHOUT CONTRAST IMPRESSION: 1. No acute intracranial process. XY L SHOULDER Postsurgical changes are visualized in the left humerus with severe osteoarthrosis of the left glenohumeral joint. No significant change compared to prior exam. Condition at Discharge: Undetermined Final Diagnosis/Problems List # Acute breakthrough grand mal seizure vs alcohol withdrawal # history of seizures # mild alcoholic intoxication # polysubstance abuse ( marijuana, cocaine, methamphetamines ) # ? Toxic or metabolic encephalopathy likely due to above # ? Possible postictal state # Vit D deficiency # Medication noncompliance # Chronic Left shoulder fracture s/p surgery # History of left shoulder dislocation Discharge Disposition: AMA Discharge Instruct/Medications Diet: Regular Activity: No Restrictions, As Tolerated Follow Up/Referral: PCP Neurology Discharge Statement: "Patient was advised to return to the ER or call 911 if any headaches, dizziness, shortness of breath, chest pain, abdominal pain, bleeding, fevers, or worsening of medical condition. Patient was counseled about treatment plan, medications, possible side effects, patientverbalized understanding. All questions were answered to the best of my ability. This discharge took greater then 30 minutes in planning, reviewing documentation, counseling the patient, and discussing with other team members." ASSESSMENT ASSESSMENT Assessment # Acute breakthrough grand mal seizure vs alcohol withdrawal # history of seizures # mild alcoholic intoxication # polysubstance abuse ( marijuana, cocaine, methamphetamines ) # ? Toxic or metabolic encephalopathy likely due to above # ? Possible postictal state # Vit D deficiency # Medication noncompliance # Chronic Left shoulder fracture s/p surgery # History of left shoulder dislocation Date of Service: March 03, 2025 Billing Provider: NELLA POST MD Common Visit Codes: NOT BILLABLE MODESTA CHU March 03, 2025 15:55 NELLA POST MD March 13, 2025 23:45
== END 2025-03-03 15:35 | disposition left against medical advice (07) | DRG 812 ==
LOC: ER 02:33 → OVERFLOW 18:33 → TELE-CENTR 21:17
PROVIDERS: ADMIT Student in an Organized Health Care Education/Training Program; ATTEND Student in an Organized Health Care Education/Training Program
PROC: 0RSKXZZ Reposition Left Shoulder Joint, External Approach (ICD-10-PCS; principal; 2025-03-01)
DX: T40.711A Poisoning by cannabis, accidental (unintentional), initial encounter (principal); G92.8 Other toxic encephalopathy; G40.409 Other generalized epilepsy and epileptic syndromes, not intractable, without status epilepticus; T40.5X1A Poisoning by cocaine, accidental (unintentional), initial encounter; F12.10 Cannabis abuse, uncomplicated; F19.10 Other psychoactive substance abuse, uncomplicated; Z53.29 Procedure and treatment not carried out because of patient's decision for other reasons; E55.9 Vitamin D deficiency, unspecified; Z20.822 Contact with and (suspected) exposure to COVID-19; F10.129 Alcohol abuse with intoxication, unspecified; F10.139 Alcohol abuse with withdrawal, unspecified; M19.012 Primary osteoarthritis, left shoulder; G89.29 Other chronic pain; F17.210 Nicotine dependence, cigarettes, uncomplicated; Z79.899 Other long term (current) drug therapy; Z91.199 Patient's noncompliance with other medical treatment and regimen due to unspecified reason; S43.085A Other dislocation of left shoulder joint, initial encounter; X58.XXXA Exposure to other specified factors, initial encounter; Y93.89 Activity, other specified; Y99.8 Other external cause status; Y92.89 Other specified places as the place of occurrence of the external cause; Y90.1 Blood alcohol level of 20-39 mg/100 ml; T43.651A Poisoning by methamphetamines accidental (unintentional), initial encounter
CPT/HCPCS: 23650; 36415; 70450; 71045; 73030; 80053; 80307; 80320; 81001; 82140; 82306; 82542; 82550; 82607; 82962; 83036; 83605; 83735; 84443; 85025; 87081; 87426; 87804; 96365; 96375; 96376; 99152; 99153; G0378; J1885; J2704